=== PATIENT | female | born 1950 | race Caucasian/White ===

== ENCOUNTER 2019-06-08 13:30 | Outpatient (RCR) | payer MEDICARE, OTHER, SELFPAY | END 2019-06-28 00:01 | LOC: ONCMED 13:30 | PROVIDERS: Referring Provider Internal Medicine; Visit Provider Internal Medicine Hematology & Oncology | DX: C34.12 Malignant neoplasm of upper lobe, left bronchus or lung (principal); J44.9 Chronic obstructive pulmonary disease, unspecified; R09.02 Hypoxemia; F17.210 Nicotine dependence, cigarettes, uncomplicated | CPT/HCPCS: 99205; 99213 ==

== ENCOUNTER 2019-07-29 05:49 | Outpatient (RCR) | payer MEDICARE, OTHER, SELFPAY ==
--- NOTE | 2019-07-05 | CT_ITS ---
Radation Therapy Planning CT images; total exam DLP: 1519.64 mGy-cm MTDD
[2019-07-13 14:46] LABS: Basophils % 0.4 %; Eosinophils # 0.1 10^3/uL (0.0-0.8); Eosinophils % 0.5 %; Hematocrit 46.5 % (37.0-47.0); Hemoglobin 15.4 g/dL (11.5-15.3); Lymphocytes # 2.7 10^3/uL (0.8-4.8); Lymphocytes % 24.3 %; Mean Corpuscular HGB Conc 33.1 g/dL (30.0-36.0); Mean Corpuscular Hemoglobin 31.6 pg (28.0-34.0); Mean Corpuscular Volume 95.5 fL (81-99); Mean Platelet Volume 10.7 fL (7.4-10.4); Monocytes # 0.6 10^3/uL (0.2-0.9); Monocytes % 5.4 %; Neutrophils # 7.6 10^3/uL (1.8-7.7); Nucleated Red Blood Cells % 0 %; Platelet Count 247 10^3/cmm (130-400); Red Blood Count 4.87 10^6/uL (4.1-5.3); Red Cell Distribution Width 14.5 % (12.1-15.1)
[2019-07-13 15:09] LABS: Alanine Aminotransferase 11 U/L (0-33); Albumin Level 4.6 g/dL (3.5-5.2); Alkaline Phosphatase 72 IU/L (35-105); Anion Gap 15.9 (5-19); Aspartate Amino Transferase 13 U/L (0-32); Blood Urea Nitrogen 20 mg/dL (8-23); Calcium 10.2 mg/Dl (8.8-10.2); Carbon Dioxide 26 mmol/L (22-29); Chloride 102 mmol/L (98-107); Globulin 2.7 g/dL (1.3-4.6); Glomerular Filtration Rate 83.5 mL/min (90-130); Glucose 142 mg/dL (74-106); Potassium 3.9 mmol/L (3.5-5.1); Sodium 140 mmol/L (136-145); Total Bilirubin 0.2 mg/dL (0.15-1.2); Total Protein 7.3 g/dL (6.6-8.7)
--- NOTE | 2019-07-14 13:18 | ONC FU_ITS ---
Dr. Zhou follow up note Patient: Sheela Harris < Unit #: [id number]: 1950 Dicatated By: Barbara Zhou M.D.Date of Visit:Jul 13, 2019 Onc Med Follow-up/Prog Note History of Present Illness: Mrs. sheela Harris, is a 68-year-old female with history of COPD chronic smoking and exercise hypoxemia recently underwent CT scan of chest which showed 2 separate pulmonary nodules e.g. 1 and upper lobe and one lower lobe subsequently she underwent CT PET scan on 05/10/2019 which confirmed multiple left lung nodules with SUV of 9.2 the largest of disease in the posterior aspect of left upper lobe measuring up to 0.8 x 1.3 cm. As per discussion with Dr. Orourke radiation oncologist, there are 3 small separate nodules in the left upper lobe and one in the left lower lobe and because of location SB RT can be performed. CT PET scan showed no mediastinal or hilar lymphadenopathy or any distance metastatic disease patient underwent CT-guided biopsy of left upper lobe nodule on 06/01/2019 which showed moderately differentiated squamous cell carcinoma immunohistochemistry was positive for P 40 and negative for TTF-1. Because of underlying lung condition, patient was not a candidate for surgery so she was referred to radiation/medical oncology for evaluation and management.Cancer type ID was done on 06/01/2019 showed squamous cell carcinoma lung as a primary within 77% probability Patient denies any history of hemoptysis or hematemesis. Patient denies any history of bony pains patient denies any history of headaches blurred vision double vision. But she has history of brain tumor for which she underwent yearly MRI scan for 5-6 years without any progression as per patient at that time she was told it could be a benign lesion or she may have born with it. She also has a skin lesion in left subaxillary area for which she was supposed to see world history teacher but she canceled her appointment once she found out about lung cancer. Patient denies any weight loss. Patient denies any jaundice patient denies any history of sore throat or dysphagia. Patient denies any history of vaginal bleeding. Patient is a chronic smoker and smoke about pack a day Came for follow-up, denies any specific complaints, no fever or chills, no nausea vomiting, no diarrhea constipation patient has seen radiation oncology now SB RT to left lung lesions is planned and scheduled. Medications: Aspirin 81 mg (of 81 mg) Tablet Oral daily, Diclofenac Sodium 75 mg (of 75 mg) Tablet, enteric coated Oral daily, hydroCHLOROthiazide 12.5 mg (of 12.5 mg) Tablet Oral daily, Simvastatin 20 mg (of 20 mg) Tablet Oral daily Allergies: No Known Allergies. Review of Systems: Review of Systems is not available for this patient. Vital Signs: Performed on Jul 13, 2019 15:29 Height - 61.00 in Weight - 156.4 lbs (LOW) BSA - 1.70 sq.m BMI - 29.55 Temperature - 98.6 F Pulse - 83 /min Respiration - 24 /min BP - 136/82 mm(hg) O2 Sat - 95 % (LOW) Pain - 0 Performance Status: 1 - No physically strenuous activity, but ambulatory and able to carry out light or sedentary work (e.g. office work, light house work). (ECOG) Physical Examination: ENMT - No oral exudates, ulcers, masses, thrush or mucositis. Oropharynx clear. Tongue normal, Respiratory - Poor air entry, mild wheezing bilaterally, Cardiovascular - Regular rate and rhythm of heart, Abdomen - Non-tender, non-distended, Good bowel sounds. No guarding or rebound tenderness. No pulsatile masses, Extremities - no edema. Lab/Imaging: Test performed on Jul 13, 2019 14:34 Glucose 142 mg/dL BUN 20 mg/dL Creatinine 0.7 mg/dL Cr Clearance (Est) 87.3400 mL/min (Preliminary) Sodium 140 mmol/L Potassium 3.9 mmol/L Chloride 102 mmol/L CO2 26 mmol/L Calcium 10.2 mg/dL Protein, Total 7.3 g/dL Albumin 4.6 g/dL Globulin 2.7 g/dL Bilirubin, Total 0.2 mg/dL Alkaline Phosphatase 72 IU/L AST (SGOT) 13 IU/L ALT (SGPT) 11 IU/L WBC 11.0 10 3/uL RBC 4.87 10^12/L HGB 15.4 g/dL HCT 46.5 % MCV 95.5 fL MCH 31.6 pg MCHC 33.1 g/dL RDW 14.5 % Platelet Count 247 10 3/cmm MPV 10.7 fL Lymphocytes 2.7 10^9/L Neutrophils 0.0 10 3/uL Monocytes 0.6 10^9/L Eosinophils 0.1 10^9/L Basophils 0.0 10^9/L Neutrophil % 0.5 % Manual Lymphocytes 24.3 % Manual Monocytes 5.4 % Manual Eosinophils 0.5 % Manual Basophils 0.4 % NRBCs 0.0 /100 WBC Impression: Moderately differentiated squamous cell carcinoma per CT-guided biopsy of left upper lobe lung done on 06/01/2019 Immunohistochemistry showed positive for p40 and negative for TTF-1. CT PET scan done on 05/10/2019 showed multiple hypermetabolic nodules in left lung e.g. 3 closely related nodules in upper left lobe largest being 0.8 x 1.3 cm and one in the left lower lobe. Cancer type ID confirmed lung being primary at 77% probability Clinical stage T4 ( lesions in ipsilateral separate lobes) NX M0 stage IIIa COPD, exercise hypoxemia, chronic smoking Plan: Discussed with patient regarding her labs white blood count 11 hemoglobin of 15.4 crit 46.5 platelets 247,000 CMP within normal limits Clinically, patient is doing well, denies any new signs symptom suggestive of disease progression. Based on size and location now for multiple left lung nodules, SB RT was recommended by radiation oncology now scheduled to start next week. Due to unusual presentation e.g. no mediastinal lymphadenopathy but multiple lobes involvement in the left lung, cancer type ID was performed which confirmed lung being primary at 77% probability. Patient was not a candidate for surgery due to underlying lung condition due to chronic smoking and COPD/exertional hypoxemia and due to size and location of left lung lesions, radiation recommended SB RT. Role of systemic chemotherapy and stage IIIa disease was discussed again. After completion of SB RT we will consider systemic chemotherapy with carboplatin/gemcitabine every 3 weeks ???4 cycles as patient is a hard of hearing and thus would not consider cisplatin due to related ototoxicity. Patient will return to clinic 1 week after completion of SB RT the left lung in the meantime we'll obtain approval from her insurance all the side effect possible benefit as a with chemotherapy e.g. bone marrow suppression, especially thrombocytopenia, nausea vomiting possible hair loss were mentioned further teaching will be done by chemotherapy nurse. Signed By: Barbara Zhou M.D. <<Signature on File>>
--- NOTE | 2019-07-18 14:56 | ONCRAD TMN_ITS ---
Radiation Oncology Weekly Treatment Management Patient: Moraima Harris MR#: [id number] : 1950> Age: 68> Sex: Female Dictated by: Dr. Fitz Orourke Date of Service: 07/18/2019 Referring Physician(s): Otto Sanchez M.D. Primary Diagnosis: C34.12 - Malignant neoplasm of upper lobe, left bronchus or lung, Diagnosed 06/08/2019 (Active) C34.92 - Malignant neoplasm of unspecified part of left bronchus or lung, Diagnosed 06/01/2019 (Active) Radiotherapy to date: Course: LT Lung [id number], Treatment Site: LT LungU SBRT, Ref. ID: , VAIBHAV SBRT, Energy: 6X, Dose/Fx (cGy): 1,200, #Fx: 2 / 4, Dose Correction (cGy): 0, Total Dose cGy): 2,400, Start Date: 07/13/2019, Elapsed Days: 5 Current Complaints/Interval History: Constitutional Complains of night sweats which occur occasionally. Denies lack of appetite, fatigue and fever. ENMT Denies odynophagia or dysphagia. Cardiovascular Denies chest pain but has heaviness to the left side above the breast. Respiratory Notes a mild cough. Denies dyspnea, wheezing and chest wall pain. Current Medications: Aspirin, diclofenac Sodium, hydroCHLOROthiazide, simvastatin. Allergies: No Known Allergies Vital Signs: Performed on 07/18/2019 12:08 PM BMI - 29.854 kg/m2 (high), Height - 61.00 in, Weight - 158.0 lbs, Temperature - 98.2 f, Pulse - 74, Respiration - 18, O2 Sat - 97 %, Pain - 0 and BP - 144/ 80 mm(hg)(high/). Physical Exam: Appears stable, no skin erythema or desquamation. Performance Status: 1 - No physically strenuous activity, but ambulatory and able to carry out light or sedentary work (e.g. office work, light house work). (ECOG) Lab: Test performed on 07/13/2019 2:34 PM WBC - 11.0 10 3/ul (high), HGB - 15.4 g/dl (high), HCT - 46.5 % (high) and MPV - 10.7 fl (high). Imaging: No new diagnostic imaging was performed since the last weekly treatment visit. All radiation therapy related imaging (including but not limited to CBCT generated images) was reviewed. Appropriate changes, if any, were made to assure accurate target localization. Impression/Plan: Tolerating treatment well. Continue treatment as planned. Recommended patient to see her primary physician for the feeling of heaviness on left chest to have a workup for cardiac problem / angina. She should go to ER if symptoms worsen. The patient expressed good understanding and agreed with the plan. I explained to the patient that there is an increased risk of rib fracture and chronic chest wall pain associated with the SBRT due to the peripheral tumors abutting chest wall/ribs. The patient expressed good understanding. CPT: 71797 Signed by: Dr. Fitz Orourke>07/18/2019 2:55:35 PM <<Signature on File>>
--- NOTE | 2019-07-27 15:30 | ONCRAD TMN_ITS ---
Radiation Oncology Weekly Treatment Management Patient: Moraima Harris MR#: [id number] : 1950> Age: 68> Sex: Female Dictated by: Dr. Fitz Orourke Date of Service: 07/27/2019 Referring Physician(s) : Otto Sanchez M.D. Primary Diagnosis: C34.12 - Malignant neoplasm of upper lobe, left bronchus or lung, Diagnosed 06/08/2019 (Active) C34.92 - Malignant neoplasm of unspecified part of left bronchus or lung, Diagnosed 06/01/2019 (Active) Radiotherapy to date: Course: LT Lung [id number] Treatment Site: LungU SBRT, Ref. ID: VAIBHAV SBRT, Energy: 6X, Dose/Fx (cGy): 1,200, #Fx: 4 / 4, Dose Correction (cGy): 0, Total Dose (cGy): 4,800, Start Date: 07/13/2019, End Date: 07/22/2019, Elapsed Days: 9 Treatment Site: LT LungL SBRT, Ref. ID: LLL SBRT, Energy: 6X, Dose/Fx (cGy): 1,200, #Fx: 2 / 4, Dose Correction (cGy): 0, Total Dose (cGy): 2,400, Start Date: 07/25/2019, End Date: 07/27/2019, Elapsed Days: 2 Current Complaints/Interval History: Constitutional Complains of occasional night sweats. Denies lack of appetite, fatigue and fever. ENMT Denies odynophagia or dysphagia. Chest wall Denies chest wall pain. Respiratory Complains of cough which is non-productive. Complains of dyspnea associated with normal activity. Denies hemoptysis and wheezing. Current Medications: Aspirin, diclofenac Sodium, hydroCHLOROthiazide, simvastatin. Allergies: No Known Allergies Vital Signs: Performed on 07/27/2019 11:43 AM BMI - 29.174 kg/m2 (high), Height - 61.00 in, Weight - 154.4 lbs, Temperature - 98.7 f, Pulse - 78, Respiration - 20, O2 Sat - 97 %, Pain - 0 and BP - 146/ 80 mm(hg)(high/). Physical Exam: Appears stable, no skin erythema or desquamation. Lungs clear with no wheezing or rales. Performance Status: 1 - No physically strenuous activity, but ambulatory and able to carry out light or sedentary work (e.g. office work, light house work). (ECOG) Lab: Test performed on 07/13/2019 2:34 PM WBC - 11.0 10 3/ul (high), HGB - 15.4 g/dl (high), HCT - 46.5 % (high) and MPV - 10.7 fl (high). Imaging: No new diagnostic imaging was performed since the last weekly treatment visit. All radiation therapy related imaging (including but not limited to CBCT generated images) was reviewed. Appropriate changes, if any, were made to assure accurate target localization. Impression/Plan: Tolerating treatment well. Continue treatment as planned. CPT: 87206 Signed by: Dr. Fitz Orourke>07/27/2019 3:28:44 PM <<Signature on File>>
== END 2019-07-29 23:59 | disposition home or self-care (01) ==
LOC: ONCMED 05:49
PROVIDERS: Internal Medicine Hematology & Oncology; Visit Provider Radiology Radiation Oncology
DX: Z51.0 Encounter for antineoplastic radiation therapy (principal); C34.82 Malignant neoplasm of overlapping sites of left bronchus and lung; J44.9 Chronic obstructive pulmonary disease, unspecified; F17.210 Nicotine dependence, cigarettes, uncomplicated; Z79.82 Long term (current) use of aspirin
CPT/HCPCS: 36415; 77014; 77263; 77280; 77290; 77295; 77300; 77334; 77336; 77370; 77373; 77470; 80053; 85025; G0463

== ENCOUNTER 2019-08-08 14:11 | Day surgery (SDC) | payer MEDICARE, OTHER, SELFPAY ==
[2019-08-05 15:29] VITALS: BMI 29.6
--- NOTE | 2019-08-08 | SCC_ITS ---
Procedure done placement of right IJ Port-A-Cath all intraoperative fluoroscopic interpretation and sonographic assessment and evaluation was done by me through the whole entire procedure. 12.8 seconds of fluoroscopic guidance, for a cumulative dose of 1.66 mGy, was provided to Dr. Gonsalez by the radiology department. C-arm images of the chest were saved for the patient's permanent record. ALICE
[2019-08-08 14:33] VITALS: BP 137/74; PULSE 86; RESP 18; TEMP 36.5; O2SAT 94
[2019-08-08 14:39] VITALS: BMI 29.5
[2019-08-08] MEDS: sodium chloride 0.9% 1,000 ML 30 ML IV (14:42)
--- NOTE | 2019-08-08 15:41 | PM.HPUD ---
H&P update H&P Update: DATE OF SURGERY/PROCEDURE: 08/08/19 DATE H&P PERFORMED: 07/27/19 H&P UPDATE INFORMATION: H&P completed within last 30 days and No changes to prior documentation PREOP DIAGNOSIS: Lung cancer PRIMARY INDICATION FOR PROCEDURE: Patient requires a long-term IV access PLANNED PROCEDURE: Operation Date: 08/08/19 15:25 Proposed Procedures p Portacath Placement 18112/C34.90(Not Applicable) - Deandre Gonsalez MD Full H&P Medications/Allergies: Current Medications: Current Medications Generic Name Dose Route Start Last Admin Trade Name Freq PRN Reason Stop Dose Admin Sodium Chloride 1,000 mls @ 30 ml s/hr 08/08/19 14:30 08/08/19 14:42 Sodium Chloride 0.9% IV 08/09/19 14:29 30 mls/hr .Q24H NYLA Administration Perinent History: Medical/Surgical History: Medical History (Updated 07/28/19 @ 09:27 by Deandre Gonsalez MD) Hyperlipidemia (Acute) Hypertension (Acute) Lung cancer (Acute) Family History: Family History (Updated 07/27/19 @ 13:13 by Nicole Dominguez RN) Denies family history of Anesthesia complication Bleeding disorder Social History: Social History Smoking and tobacco status: current every day smoker cigarettes Packs smoked per day: 1.5 Second hand smoke exposure: Yes Alcohol intake: never Desire information about substance/drug rehabilitation?: No Adopted: No Caregiver/support person: Yes Lives independently: Yes Household members: spouse Housing: House Marital status: Highest education level completed: High School Graduate service: No Current occupational status: retired Current occupational exposures/hazards: No Pets and animals: No History of recent travel: No Sexually active: No Current gender identity: Female Radha/Nondenominational: Hindu Special radha needs: No Financial difficulty paying for basics: Decline to Answer
--- NOTE | 2019-08-08 15:58 | P.ANESASSM_ITS ---
Pre-Anesthetic Assessment Pre-Anesthetic Assessment: Height/Weight: Height 1.55 m Weight 70.76 kg Temp Pulse Resp BP Pulse Ox 97.7 F 86 18 137/74 94 08/08/19 14:33 08/08/19 14:33 08/08/19 14:33 08/08/19 14:33 08/08/19 14:33 Preop Diagnosis: Lung cancer Proposed Procedure: Operation Date: 08/08/19 15:25 Proposed Procedures p Portacath Placement 51956/C34.90(Not Applicable) - Deandre Gonsalez MD Was Beta Roverto taken within 24 hours: N/A Last intake: Intake Last Liquid Date 08/07/19 Last Liquid Time 17:00 Last Solid Date 08/07/19 Last Solid Time 17:00 Last Intake: 05:00 Social: Social History: Tobacco Packs per day: 1 Pack years: 50 Exam: Pre-Anes Outpt Exam: alert and oriented x 3 Pulmonary: Pulmonary: COPD and None reported Comments: 1 L @ night CV/HEM: CV/HEM: CHF and HTN : : None reported Hepatic: Hepatic: None reported GI: GI: None reported Metabolic: Metabolic: Morbid obesity Musc/skel: Musc/skel: None reported Neuropsych: Neuropsych: None reported Anesthetic Plan: ASA status: 4 Anesthesia: Anesthesia Evaluation and MAC Meds/Allergies Current Medications: Current Medications Generic Name Dose Route Start Last Admin Trade Name Freq PRN Reason Stop Dose Admin Sodium Chloride 1,000 mls @ 30 ml s/hr 08/08/19 14:30 08/08/19 14:42 Sodium Chloride 0.9% IV 08/09/19 14:29 30 mls/hr .Q24H NYLA Administration PFSH Anesthesia PFSH: Social History Smoking and tobacco status: current every day smoker cigarettes Packs smoked per day: 1.5 Second hand smoke exposure: Yes Alcohol intake: never Desire information about substance/drug rehabilitation?: No Adopted: No Caregiver/support person: Yes Lives independently: Yes Household members: spouse Housing: House Marital status: Highest education level completed: High School Graduate service: No Current occupational status: retired Current occupational exposures/hazards: No Pets and animals: No History of recent travel: No Sexually active: No Current gender identity: Female Radha/Anabaptist: Hoahaoism Special radha needs: No Financial difficulty paying for basics: Decline to Answer Data Anesthesia Cardiac Studies: No Data to Display
--- NOTE | 2019-08-08 16:09 | SC_ITS ---
WS: [id number] C-arm fluoroscopy view of the right chest in the OR, 08/08/2019 Clinical Data: SURGERY Comparison: None. Findings: A right internal jugular venous catheter has been inserted and the tip ends in the superior vena cav a. SC/C-arm FL for CVA 20004 Impression: Satisfactory insertion of right internal jugular venous catheter.
[2019-08-08] MEDS: heparin, porcine 1,000 unit/mL INJ 10 mL 10000 UNIT INJECTION (16:54)
[2019-08-08] MEDS: lidocaine 2% INJ 20 mL INJECTION (16:54)
--- NOTE | 2019-08-08 17:30 | XRR_ITS ---
PROCEDURE INFORMATION: Exam: XR Chest, 1 View Exam date and time: 08/08/2019 5:47 PM Age: 68 years old Clinical indication: Other vascular access device placement or adjustment; Port; Additional info: Status post right ij port-a-cath placement TECHNIQUE: Imaging protocol: XR of the chest Views: 1 view. COMPARISON: No relevant prior studies available. FINDINGS: Tubes, catheters and devices: There is a right IJ port with tip in the right atrium. Lungs: Lungs are hyperinflated. There is interstitial prominence compatible with fibrosis, bronchitis, viral pneumonitis or mild interstitial edema. No lobar consolidation. Pleural space: Unremarkable. No pleural effusion. No pneumothorax. Heart/Mediastinum: There is borderline cardiomegaly. Bones/joints: No acute abnormality. XR/XR chest 1V portable [id number] IMPRESSION: There is interstitial prominence compatible with fibrosis, bronchitis, viral pneumonitis and/or mild interstitial edema.
--- NOTE | 2019-08-08 17:30 | P.OP_ITS ---
Operative Report Date of procedure: August 08, 2019 Pre-op Diagnosis: Lung cancer Post-op diagnosis: same Implants: Right IJ Port-A-Cath Procedure done placement of right IJ Port-A-Cath all intraoperative fluoroscopic interpretation and sonographic assessment and evaluation was done by me through the whole entire procedure. Surgeon: Deandre Gonsalez Towboat Captain: Dimitri Bateman Anesthesia: MAC (JERI Caballero) Estimated blood loss (mL): 15 Condition: stable Disposition: same day Brief History: This is a pleasant 68 years old female patient with history of lung cancer, referred to my practice to have a Port-A-Cath placement for long- term IV access. Plan of care; After thorough history physical examination and reviewing the chart, I counseled the patient for Port-A-Cath placement, indications, risks including pneumothorax and injury of major vascular structures, benefits, and alternatives were all discussed with the patient, patient understands and is interested to proceed. Informed consent per chart Assurance and education All questions have been answered Procedure: Patient was identified in the holding area and taken to the operative room and placed in supine position IV propofol was given by the anesthesia provider ,both arms were tucked,Time-out was done verifying the patient's name/date of /planned procedure and destination after the procedure, all were in agreement. SCDs confirmed to be functioning, preoperative antibiotics administered per protocol, and beta rogelio protocol was confirmed, appropriate positioning of the patient was done by me. Medications were reviewed to assess for anticoagulant usage. Risks and benefits and prevention of central line associated blood stream infection (CLABSI) were discussed with the patient/CPOA, and a consent was obtained. Monitors were in place and monitored throughout the procedure. All necessary supplies were available prior to start. Hand hygiene was completed prior to starting. M aximum barrier technique was utilized including a sterile gown, sterile gloves with a hat and mask. Site was was prepped with [chlorhexidine] and a full body drape was placed. 5 mL of 2% lidocaine was injected into the skin with a 25 gauge needle. Prep& drape was done under the usual sterile technique, lidocaine 2% was injected at the site of the stick, started by right subclavian vein stick yet I was not able to retrieve venous blood, after couple of attempts I decided to deviate my attention to the right IJ vein, venous blood was obtained under ultrasound guidance and there was no evidence of intraluminal thrombosis, interpretation was done by me through the whole entire procedure, a guidewire was then threaded and under the guidance of fluoroscopy position was confirmed to be in the IVC and my interpretation, there was no PVC changes, at that point the guidewire was secured to the drapes with a hemostat and the needle was taken out. Attention was then deviated towards creation of a pocket for the port were lidocaine 2% was injected using an 15 blade knife skin incision was created at the right upper Chest ,dissection using the Bovie to create a pocket for the Port-A-Cath to be accommodated, hemostasis was secured, after the port being appropriately flushed it was inserted into the pocket and a tunneler was used to accommodate the catheter of the port cath to be delivered through the incision first created at the site of the stick, yet I had to create a transit incision at the root of the neck at the right side to the patient difficult anatomy , and then I was able to retrieve the catheter at the index site of the stick. At that point under fluoroscopy an estimated length was measured for the catheter and was cut at the designed level, followed by that a dilator with the sheath introduced onto the guidewire the dilator and the wire were retrieved and the catheter of the port was introduced via the sheath where it was peeled off and the catheter maintained to be in the SVC that was confirmed with fluoroscopy, and the fluoroscopy interpretation was done by me throughout the entire procedure. Multiple flushes of the port was done by diluted heparin and I was able to retrieve without difficulty venous blood as well as appropriate flushing was achieved. The port was secured to the fascia with using Prolene sutures, 4-0 Vicryl deep subdermal interrupted sutures, skin was then closed by 4-0 Monocryl as subcuticular closure. The stick site was closed by 4-0 Monocryl and Dermabond was used followed by dressing. Patient tolerated the procedure well was taken to the recovery area Count was correct at the end of the procedure I was present for the whole entire procedure
[2019-08-08 17:41] VITALS: BP 145/75; PULSE 69; RESP 16; TEMP 36.1; O2SAT 97
[2019-08-08 17:57] VITALS: BP 162/71; PULSE 67; RESP 18; O2SAT 100
== END 2019-08-08 18:04 | disposition home or self-care (01) ==
PROVIDERS: Visit Provider Surgery
PROC: (CPT 36561; principal; 2019-08-08 15:25)
DX: C34.90 Malignant neoplasm of unspecified part of unspecified bronchus or lung (principal); J44.9 Chronic obstructive pulmonary disease, unspecified; I11.0 Hypertensive heart disease with heart failure; I50.9 Heart failure, unspecified; E66.01 Morbid (severe) obesity due to excess calories; Z68.29 Body mass index [BMI] 29.0-29.9, adult; F17.210 Nicotine dependence, cigarettes, uncomplicated; E78.5 Hyperlipidemia, unspecified; I10 Essential (primary) hypertension; Z79.82 Long term (current) use of aspirin
CPT/HCPCS: 36561; 12345; 71045; 77001; C1788; J0690; J1644; J2001; J7030

== ENCOUNTER 2019-08-23 05:35 | Outpatient (RCR) | payer MEDICARE, OTHER, SELFPAY ==
[2019-08-05 10:04] LABS: Basophils % 0.6 %; Eosinophils # 0.1 10^3/uL (0.0-0.8); Eosinophils % 1.1 %; Hematocrit 46.6 % (37.0-47.0); Hemoglobin 15.1 g/dL (11.5-15.3); Lymphocytes # 1.1 10^3/uL (0.8-4.8); Lymphocytes % 17.1 %; Mean Corpuscular HGB Conc 32.4 g/dL (30.0-36.0); Mean Corpuscular Hemoglobin 30.9 pg (28.0-34.0); Mean Corpuscular Volume 95.3 fL (81-99); Mean Platelet Volume 10.5 fL (7.4-10.4); Monocytes # 0.5 10^3/uL (0.2-0.9); Monocytes % 7.3 %; Neutrophils # 4.8 10^3/uL (1.8-7.7); Neutrophils % 73.6 %; Nucleated Red Blood Cells % 0 %; Platelet Count 209 10^3/cmm (130-400); Red Blood Count 4.89 10^6/uL (4.1-5.3); Red Cell Distribution Width 14.3 % (12.1-15.1); White Blood Count 6.5 10^3/uL (4.0-10.0)
[2019-08-05 10:27] LABS: Alanine Aminotransferase 18 U/L (0-33); Albumin Level 4.1 g/dL (3.5-5.2); Alkaline Phosphatase 61 IU/L (35-105); Anion Gap 16.1 (5-19); Aspartate Amino Transferase 13 U/L (0-32); Blood Urea Nitrogen 13 mg/dL (8-23); Carbon Dioxide 28 mmol/L (22-29); Chloride 99 mmol/L (98-107); Globulin 2.7 g/dL (1.3-4.6); Glomerular Filtration Rate 99.7 mL/min (90-130); Glucose 88 mg/dL (65-115); Potassium 4.1 mmol/L (3.5-5.1); Sodium 139 mmol/L (136-145); Total Bilirubin 0.2 mg/dL (0.15-1.2); Total Protein 6.8 g/dL (6.6-8.7)
--- NOTE | 2019-08-05 11:48 | ONC FU_ITS ---
Dr. Zhou follow up note Patient: Sheela Harris < Unit #: [id number]: 1950 Dicatated By: Barbara Zhou M.D.Date of Visit:Aug 05, 2019 Onc Med Follow-up/Prog Note History of Present Illness: Mrs. sheela Harris, is a 68-year-old female with history of COPD chronic smoking and exercise hypoxemia recently underwent CT scan of chest which showed 2 separate pulmonary nodules e.g. 1 and upper lobe and one lower lobe subsequently she underwent CT PET scan on 05/10/2019 which confirmed multiple left lung nodules with SUV of 9.2 the largest of disease in the posterior aspect of left upper lobe measuring up to 0.8 x 1.3 cm. As per discussion with Dr. Orourke radiation oncologist, there are 3 small separate nodules in the left upper lobe and one in the left lower lobe and because of location SB RT can be performed. CT PET scan showed no mediastinal or hilar lymphadenopathy or any distance metastatic disease patient underwent CT-guided biopsy of left upper lobe nodule on 06/01/2019 which showed moderately differentiated squamous cell carcinoma immunohistochemistry was positive for P 40 and negative for TTF-1. Because of underlying lung condition, patient was not a candidate for surgery so she was referred to radiation/medical oncology for evaluation and management.Cancer type ID was done on 06/01/2019 showed squamous cell carcinoma lung as a primary within 77% probability Patient denies any history of hemoptysis or hematemesis. Patient denies any history of bony pains patient denies any history of headaches blurred vision double vision. But she has history of brain tumor for which she underwent yearly MRI scan for 5-6 years without any progression as per patient at that time she was told it could be a benign lesion or she may have born with it. She also has a skin lesion in left subaxillary area for which she was supposed to see observer electrical prospecting but she canceled her appointment once she found out about lung cancer. Patient denies any weight loss. Patient denies any jaundice patient denies any history of sore throat or dysphagia. Patient denies any history of vaginal bleeding. Patient is a chronic smoker and smoke about pack a day Status post SB RT to left upper lobe lung lesion from 07/13/2019 through 07/22/2019 Status post SB RT to left lower lobe of lung nodule from 07/25/2019 and completed on 08/02/2019.Came for follow-up, denies any specific complaints, no nausea vomiting no fever no chills, no shortness of breath no hemoptysis or hematemesis, tolerated SB RT to left lung nodules well.Port-A-Cath placement is planned on Thursday. Medications: Aspirin 81 mg (of 81 mg) Tablet Oral daily, Diclofenac Sodium 75 mg (of 75 mg) Tablet, enteric coated Oral daily, hydroCHLOROthiazide 12.5 mg (of 12.5 mg) Tablet Oral daily, Simvastatin 20 mg (of 20 mg) Tablet Oral daily Allergies: No Known Allergies. Review of Systems: Review of Systems is not available for this patient. Vital Signs: Performed on Aug 05, 2019 11:08 Height - 61.00 in Weight - 157.0 lbs (HIGH) BSA - 1.70 sq.m BMI - 29.67 Temperature - 99.0 F (HIGH) Pulse - 84 /min Respiration - 18 /min BP - 142/79 mm(hg) (HIGH) O2 Sat - 92 % (LOW) Pain - 0 Performance Status: 0 - Fully active, able to carry on all predisease activities without restrictions. (ECOG) Physical Examination: ENMT - No oral exudates, ulcers, masses, thrush or mucositis. Oropharynx clear. Tongue normal, Respiratory - Lungs are clear to auscultation without rhonchi or wheezing, Cardiovascular - Regular rate and rhythm of heart, Abdomen - Non-tender, non-distended, . Good bowel sounds. No guarding or rebound tenderness. No pulsatile masses, Extremities - no edema. Lab/Imaging: Test performed on Jul 13, 2019 14:34 Glucose 142 mg/dL BUN 20 mg/dL Creatinine 0.7 mg/dL Cr Clearance (Est) 87.3400 mL/min (Preliminary) Sodium 140 mmol/L Potassium 3.9 mmol/L Chloride 102 mmol/L CO2 26 mmol/L Calcium 10.2 mg/dL Protein, Total 7.3 g/dL Albumin 4.6 g/dL Globulin 2.7 g/dL Bilirubin, Total 0.2 mg/dL Alkaline Phosphatase 72 IU/L AST (SGOT) 13 IU/L ALT (SGPT) 11 IU/L WBC 11.0 10 3/uL RBC 4.87 10^12/L HGB 15.4 g/dL HCT 46.5 % MCV 95.5 fL MCH 31.6 pg MCHC 33.1 g/dL RDW 14.5 % Platelet Count 247 10 3/cmm MPV 10.7 fL Lymphocytes 2.7 10^9/L Neutrophils 0.0 10 3/uL Monocytes 0.6 10^9/L Eosinophils 0.1 10^9/L Basophils 0.0 10^9/L Neutrophil % 0.5 % Manual Lymphocytes 24.3 % Manual Monocytes 5.4 % Manual Eosinophils 0.5 % Manual Basophils 0.4 % NRBCs 0.0 /100 WBC Impression: Moderately differentiated squamous cell carcinoma per CT-guided biopsy of left upper lobe lung done on 06/01/2019 Immunohistochemistry showed positive for p40 and negative for TTF-1. CT PET scan done on 05/10/2019 showed multiple hypermetabolic nodules in left lung e.g. 3 closely related nodules in upper left lobe largest being 0.8 x 1.3 cm and one in the left lower lobe. Cancer type ID confirmed lung being primary at 77% probability Clinical stage T4 ( lesions in ipsilateral separate lobes) NX M0 stage IIIa COPD, exercise hypoxemia, chronic smoking Plan: Discussed with patient regarding her labs white blood count 6.5 hemoglobin 15.1 crit 46.6 platelets 209,000 CMP within normal limits Clinically, patient is doing well, tolerated SB RT to left upper lobe lung nodules as well as left lower lobe lung nodule well, now for the treatment is under consideration. Earlier patient required cancer type ID to confirm the primary as with clinical presentation metastatic disease was one of the possibility but cancer type ID confirmed pulmonary being primary with 77% probability, we will also consider PDL 1 status and molecular profiling of the tumor Also discuss about role of adjuvant chemotherapy as patient was not a candidate for surgery but underwent SB RT, as patient has history of hearing loss, as per N CCN guidelines cisplatin based chemotherapyregimen is used but due to patient is concern regarding his loss and with underlying hearing loss,we will recommend systemic chemotherapy with carboplatin AUC 5 on day 1 and gemcitabine thousand milligrams per meter square day 1 and day 8 and repeat every 21 days ???4 cycles unless PDL 1 status or molecular profiling shows otherwise. Patient return to clinic on 08/15/2019 further discussion regarding PDL 1 status and molecular profiling and if unremarkable, for chemotherapy treatment. Signed By: Barbara Zhou M.D. <<Signature on File>>
[2019-08-15 16:11] LABS: Basophils # 0.1 10^3/uL (0.0-0.1); Basophils % 0.8 %; Eosinophils # 0.1 10^3/uL (0.0-0.8); Eosinophils % 1.6 %; Hematocrit 46.1 % (37.0-47.0); Lymphocytes % 16.4 %; Mean Corpuscular HGB Conc 32.5 g/dL (30.0-36.0); Mean Corpuscular Hemoglobin 32.5 pg (28.0-34.0); Mean Corpuscular Volume 99.8 fL (81-99); Mean Platelet Volume 11.5 fL (7.4-10.4); Monocytes # 0.5 10^3/uL (0.2-0.9); Monocytes % 7.4 %; Neutrophils # 4.6 10^3/uL (1.8-7.7); Neutrophils % 73.2 %; Nucleated Red Blood Cells % 0 %; Platelet Count 225 10^3/cmm (130-400); Red Blood Count 4.62 10^6/uL (4.1-5.3); Red Cell Distribution Width 14.5 % (12.1-15.1); White Blood Count 6.2 10^3/uL (4.0-10.0)
[2019-08-15 18:57] LABS: Alanine Aminotransferase 10 U/L (0-33); Albumin Level 4.1 g/dL (3.5-5.2); Alkaline Phosphatase 55 IU/L (35-105); Anion Gap 20.5 (5-19); Aspartate Amino Transferase 14 U/L (0-32); Blood Urea Nitrogen 10 mg/dL (8-23); Calcium 9.9 mg/dL (8.5-10.5); Carbon Dioxide 24 mmol/L (22-29); Chloride 101 mmol/L (98-107); Globulin 3.3 g/dL (1.3-4.6); Glomerular Filtration Rate 83.5 mL/min (90-130); Glucose 156 mg/dL (65-115); Potassium 4.5 mmol/L (3.5-5.1); Sodium 141 mmol/L (136-145); Total Bilirubin 0.3 mg/dL (0.15-1.2); Total Protein 7.4 g/dL (6.6-8.7)
[2019-08-16] MEDS: sodium chloride 0.9% 250 ML IV (09:51)
[2019-08-22 16:42] LABS: Basophils % 0.9 %; Eosinophils % 0.6 %; Hematocrit 42.1 % (37.0-47.0); Hemoglobin 13.7 g/dL (11.5-15.3); Lymphocytes # 1.2 10^3/uL (0.8-4.8); Lymphocytes % 35.8 %; Mean Corpuscular HGB Conc 32.5 g/dL (30.0-36.0); Mean Corpuscular Hemoglobin 31.1 pg (28.0-34.0); Mean Corpuscular Volume 95.5 fL (81-99); Mean Platelet Volume 11.9 fL (7.4-10.4); Monocytes # 0.1 10^3/uL (0.2-0.9); Monocytes % 1.9 %; Neutrophils % 60.5 %; Nucleated Red Blood Cells % 0 %; Platelet Count 124 10^3/cmm (130-400); Red Blood Count 4.41 10^6/uL (4.1-5.3); Red Cell Distribution Width 13.5 % (12.1-15.1); White Blood Count 3.2 10^3/uL (4.0-10.0)
[2019-08-22 17:29] LABS: Alanine Aminotransferase 26 U/L (0-33); Albumin Level 4.3 g/dL (3.5-5.2); Alkaline Phosphatase 65 IU/L (35-105); Anion Gap 19.9 (5-19); Aspartate Amino Transferase 21 U/L (0-32); Blood Urea Nitrogen 16 mg/dL (8-23); Calcium 10.3 mg/dL (8.5-10.5); Carbon Dioxide 25 mmol/L (22-29); Chloride 99 mmol/L (98-107); Globulin 2.9 g/dL (1.3-4.6); Glomerular Filtration Rate 99.7 mL/min (90-130); Glucose 104 mg/dL (65-115); Potassium 3.9 mmol/L (3.5-5.1); Sodium 140 mmol/L (136-145); Total Bilirubin 0.3 mg/dL (0.15-1.2); Total Protein 7.2 g/dL (6.6-8.7)
[2019-08-23] MEDS: sodium chloride 0.9% 250 ML 300 ML IV (12:08)
--- NOTE | 2019-08-26 10:21 | ONC FU_ITS ---
[facility] Patient Note Patient: Moraima Harris Unit #: [id number]: [id number] Dictated By: Ely HebertDate of Visit: Aug 23, 2019 Onc MED Follow-Up/Prog Note Chief Complaint: Squamous cell carcinoma left lung History of Present Illness: Mrs. Harris is a 68-year-old female with history of COPD, chronic smoking and exercise hypoxemia. She recently underwent CT scan of chest which showed 2 separate pulmonary nodules e.g. 1 in the left upper lobe and one in the left lower lobe. Subsequently she underwent CT PET scan on 05/10/2019 which confirmed multiple left lung nodules with SUV of 9.2 the largest of disease in the posterior aspect of left upper lobe measuring up to 0.8 x 1.3 cm. As per discussion with Dr. Orourke radiation oncologist, there are 3 small separate nodules in the left upper lobe and one in the left lower lobe and because of location, SBRT can be performed. CT PET scan showed no mediastinal or hilar lymphadenopathy or any distance metastatic disease. Mrs Harris underwent CT-guided biopsy of left upper lobe nodule on 06/01/2019. 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 Because of underlying lung condition, patient was not a candidate for surgery so she was referred to radiation/medical oncology for evaluation and management.Cancer type ID was done on 06/01/2019 showed squamous cell carcinoma lung as a primary within 77% probability. Mrs Harris denies any history of hemoptysis or hematemesis. She denies any history of bony pains; headaches; blurred vision or double vision. She has history of brain tumor for which she underwent yearly MRI scan for 5-6 years without any progression as per patient at that time she was told it could be a benign lesion or she may have born with it. She also has a skin lesion in left subaxillary area for which she was supposed to see hide dyer but she canceled her appointment once she found out about lung cancer. Mrs Harris denies any weight loss. She denies any jaundice or any history of sore throat or dysphagia. She denies any history of vaginal bleeding. Mrs Harris is a chronic smoker and smokes about pack a day-currently. Status post SB RT to left upper lobe lung lesion from 07/13/2019 through 07/22/2019 Status post SB RT to left lower lobe of lung nodule from 07/25/2019 and completed on 08/02/2019.Came for follow-up, denies any specific complaints, no nausea vomiting no fever no chills, no shortness of breath no hemoptysis or hematemesis, tolerated SB RT to left lung nodules well. After completion of the SBRT, Mrs Harris was offered further treatment with chemotherapy consisting of Carboplatin/gemcitabine. The carboplatin is day 1 and gemcitabine is day 1 and 8. She began her first cycle on August 16, 2019. She tolerated it well thus far. Mrs. Adams is here today for follow-up. She is due for day 8 gemcitabine. She states overall she feels she is doing well. She has had no nausea or vomiting. She denies any headaches. She is had no vision changes. She denies any neuropathy symptoms. She states that she did have some right arm pain a couple days after the chemo it was pretty severe and eventually resolved on its own. She states 2 days ago she had an episode of where her right neck was having a burning pain where her Port-A-Cath loops in my neck . She states that it lasted for couple hours and was intermittent. She states she has had no recurrence of the pain. She denies any redness or swelling or warmth in the neck or shoulder area. She denies any recurrent pain presently. She has had no fever or chills. She states she has not had any mouth sores or sore throat or any trouble swallowing. Her appetite is good. She does continue to smoke currently. She denies any worsening of her shortness of breath orthopnea. She has had no chest pain or palpitations. She has had some slight constipation but states this kind of normal for her. I have asked her to watch after treatment to see if this could possibly be worsened due to her Aloxi. She states otherwise she is doing well. She states she feels good overall. She states she is sleeping good for her. Her ECOG is 1. Past Medical History: Carotid artery stenosis Chronic obstructive pulmonary disease Hypertension Obstructive sleep apnea Past [facility] Allergies: No Known Allergies. Medications: Aspirin 81 mg (of 81 mg) Tablet Oral daily Diclofenac Sodium 75 mg (of 75 mg) Tablet, enteric coated Oral daily hydroCHLOROthiazide 12.5 mg (of 12.5 mg) Tablet Oral daily Simvastatin 20 mg (of 20 mg) Tablet Oral daily Family History: Ms. Harris's mother at age 96: stroke, and myocardial infarction. Ms. Harris's father at age 86: prostate cancer, and renal failure. Ms. Harris has 1 sister who is : stomach cancer. Social History: Ms. Harris is and she is retired. She is a daily smoker who has smoked 1.0 pack/day for 51 years. She has no history of drinking. She has indicated exposure to the following products: cigarettes. Ms. Harris reports the following support systems: lives with spouse, significant other, family, or friends, lives in own house, supportive family/friends willing to assist with needs, and adequate transportation available for expected visits. Her diet consists of regular meals. She indicates her activity level as: light exercise. Review Of Symptoms: Constitutional Denies fevers, chills, night sweats, excessive fatigue or weight loss. Allergic/Immunologic No reactions. Eyes Denies significant visual changes. No diplopia. No amaurosis. ENMT Denies changes in hearing, sore throat, mouth sores, difficulty or changes in swallowing ability, and/or sinus drainage. Endocrine No diabetes, thyroid disease or hormone replacement. Denies hot flashes or night sweats. Hematologic/Lymphatic Denies easy bruising or bleeding. The patient denies any tender or palpable lymph nodes. Respiratory Denies dyspnea on exertion, chest pain, cough or hemoptysis. Denies orthopnea. Cardiovascular Denies anginal chest pain, palpitations or orthopnea. Gastrointestinal Denies nausea, vomiting, diarrhea, GI bleeding, or constipation. Denies change in bowel habits and/or stool color, no heartburn or early satiety. Genitourinary (F) No hematuria, hesitancy, incontinence, vaginal bleeding, discharge or other problems with urination. Musculoskeletal Denies joint pain, swelling or redness. No decreased range of motion. Integumentary Denies chronic rashes, inflammation, ulcerations or skin changes. Neurologic Denies headache, blurred vision, and no areas of focal weakness or numbness. Normal gait. No sensory problems. Psychiatric Denies insomnia, depression, hetal or mood swings. Vital Signs: Performed on Aug 23, 2019 11:05 Height - 61.00 in Weight - 155.8 lbs (LOW) BSA - 1.70 sq.m BMI - 29.44 Temperature - 98.3 F (LOW) Pulse - 89 /min Respiration - 20 /min BP - 143/76 mm(hg) (HIGH) O2 Sat - 97 % Pain - 0,1 - No physically strenuous activity, but ambulatory and able to carry out light or sedentary work (e.g. office work, light house work). (ECOG) Physical Examination: Constitutional Alert, oriented, no acute distress. Skin pink, warm and dry. Head Normocephalic; atraumatic. Eyes Conjunctivae and sclerae are clear and without icterus. Pupils are reactive and equal. ENMT No oral exudates, ulcers, masses, thrush or mucositis. Oropharynx clear. Tongue normal. Neck Supple without masses or thyromegaly. No jugular venous distension. Hematologic/Lymphatic No petechiae or purpura. No tender or palpable lymph nodes in the cervical or supraclavicular areas. Respiratory Lungs are clear to auscultation without rhonchi or wheezing. Cardiovascular Regular rate and rhythm of heart without murmurs,clicks, gallops or rubs. Abdomen Non-tender, non-distended, no masses or ascites. Good bowel sounds noted in all quads. No guarding or rebound tenderness. No pulsatile masses. Back/Spine Non-tender to palpation. Extremities No visible deformities, no cyanosis, clubbing or edema. Musculoskeletal No tenderness or swelling, normal range of motion without obvious weakness. Integumentary No rashes or lesions. Neurologic No sensory or motor deficits, normal cerebellar function, normal gait. Psychiatric Alert and oriented times three. Coherent speech. Verbalizes understanding of our discussions today. Laboratory:Test performed on Aug 22, 2019 12:50 Sodium 140 mmol/L Potassium 3.9 mmol/L Chloride 99 mmol/L CO2 25 mmol/L Anion Gap 19.9 BUN 16 mg/dL Creatinine 0.6 mg/dL Cr Clearance (Est) 102.2900 mL/min eGFR 99.7 mL/min Glucose 104 mg/dL Calcium 10.3 mg/dL Protein, Total 7.2 g/dL Albumin 4.3 g/dL Globulin 2.9 g/dL Bilirubin, Total 0.3 mg/dL ALT (SGPT) 26 U/L AST (SGOT) 21 U/L Alkaline Phosphatase 65 IU/L Test performed on Aug 22, 2019 09:00 WBC 3.2 10 3/uL RBC 4.41 10 6/uL HGB 13.7 g/dL HCT 42.1 % MCV 95.5 fL MCH 31.1 pg MCHC 32.5 g/dL RDW 13.5 % Platelet Count 124 10 3/cmm MPV 11.9 fL Neutrophils 2.0 10 3/uL Lymphocytes 1.2 10 3/uL Monocytes 0.1 10 3/uL Eosinophils 0.0 10 3/uL Basophils 0.0 10 3/uL Neutrophil % 60.5 % Lymphocyte % 35.8 % Monocyte % 1.9 % Eosinophil % 0.6 % Basophils % 0.9 % Test performed on Jul 13, 2019 14:34 Manual Lymphocytes 24.3 % Manual Monocytes 5.4 % Manual Eosinophils 0.5 % Manual Basophils 0.4 % NRBCs 0.0 /100 WBC Impression: Moderately differentiated squamous cell carcinoma per CT-guided biopsy of left upper lobe lung done on 06/01/2019 Immunohistochemistry showed positive for p40 and negative for TTF-1. CT PET scan done on 05/10/2019 showed multiple hypermetabolic nodules in left lung e.g. 3 closely related nodules in upper left lobe largest being 0.8 x 1.3 cm and one in the left lower lobe. Cancer type ID confirmed lung being primary at 77% probability Clinical stage T4 ( lesions in ipsilateral separate lobes) NX M0 stage IIIa COPD, exercise hypoxemia, chronic smoking Mrs Byse tolerated SB RT to left upper lobe lung nodules as well as left lower lobe lung nodule well. She has been advised to pursue further treatment per Dr Zhou. Earlier patient required cancer type ID to confirm the primary as with clinical presentation metastatic disease was one of the possibility but cancer type ID confirmed pulmonary being primary with 77% probability, we will also consider PDL 1 status and molecular profiling of the tumor Dr Zhou discussed the role of adjuvant chemotherapy as patient was not a candidate for surgery but underwent SB RT. Dr Zhou recommended systemic chemotherapy with carboplatin AUC 5 on day 1 and gemcitabine 1,000mg per meter square day 1 and day 8 and repeat every 21 days ???4 cycles. She began her first cycle of carboplatin gemcitabine on August 16, 2019. Plan: 1. Proceed with cycle 1 day 8 gemcitabine. 2. Continue current antiemetics for now but will watch for constipation which could be related to Aloxi as it is given on day 1. 3. Labs from August 22, 2019 were reviewed in detail and discussed with MrAbel and Mrs. Harris and a copy was given to her. WBC 3.2, hemoglobin 13.7, platelets 224,000 ANC is 2000. Potassium 3.9 glucose 104 LFTs are normal. 4. She will continue the current plan of care. She may use Compazine/Ativan as needed for antiemetics at home. Thus far she has not needed them. 5. We will plan to have her return in 2 weeks for follow-up at which time she will be due for cycle 2-day 1 carboplatin gemcitabine. She will need a CBC, CMP that day. 6. We will recheck a CBC CMP in 1 week. She can have that done at in-home labs or at a clinic closer home if she desires. I do want a follow-up on her labs as her ANC today is only 2000. She may need growth factors in the future. Her platelet count is also decreased for her. 7. Mrs. Harris was instructed to contact us in the interim should questions or problems arise. Signed By: Ely Hebert-, AOCNP Barbara Zhou MD <<Signature on File>>
== END 2019-08-27 23:59 | disposition home or self-care (01) ==
LOC: ONCMED 05:35
PROVIDERS: Internal Medicine Hematology & Oncology; Visit Provider Nurse Practitioner
DX: Z51.0 Encounter for antineoplastic radiation therapy (principal); Z51.11 Encounter for antineoplastic chemotherapy; C34.12 Malignant neoplasm of upper lobe, left bronchus or lung; I10 Essential (primary) hypertension; J44.9 Chronic obstructive pulmonary disease, unspecified; G47.33 Obstructive sleep apnea (adult) (pediatric); I65.29 Occlusion and stenosis of unspecified carotid artery; F17.210 Nicotine dependence, cigarettes, uncomplicated; Z79.82 Long term (current) use of aspirin
CPT/HCPCS: 36415; 77014; 77373; 80053; 85025; 96367; 96413; 96417; 99214; G0463; J1100; J1453; J2001; J2250; J2405; J2469; J2704; J3010; J7050; J9045; J9201

== ENCOUNTER 2019-09-26 06:29 | Outpatient (RCR) | payer MEDICARE, OTHER, SELFPAY ==
[2019-08-29 16:54] LABS: Basophils % 0.4 %; Eosinophils % 0.4 %; Hematocrit 38.8 % (37.0-47.0); Hemoglobin 12.9 g/dL (11.5-15.3); Lymphocytes # 1.1 10^3/uL (0.8-4.8); Lymphocytes % 44.6 %; Mean Corpuscular HGB Conc 33.2 g/dL (30.0-36.0); Mean Corpuscular Hemoglobin 32.5 pg (28.0-34.0); Mean Corpuscular Volume 97.7 fL (81-99); Mean Platelet Volume 12.2 fL (7.4-10.4); Monocytes % 1.7 %; Neutrophils # 1.3 10^3/uL (1.8-7.7); Neutrophils % 52.5 %; Nucleated Red Blood Cells % 0 %; Platelet Count 31 10^3/cmm (130-400); Red Blood Count 3.97 10^6/uL (4.1-5.3); Red Cell Distribution Width 13.2 % (12.1-15.1); White Blood Count 2.4 10^3/uL (4.0-10.0)
[2019-08-29 19:24] LABS: Alanine Aminotransferase 37 U/L (0-33); Albumin Level 4.3 g/dL (3.5-5.2); Alkaline Phosphatase 63 IU/L (35-105); Anion Gap 18.1 (5-19); Aspartate Amino Transferase 24 U/L (0-32); Blood Urea Nitrogen 11 mg/dL (8-23); Calcium 9.5 mg/dL (8.5-10.5); Carbon Dioxide 24 mmol/L (22-29); Chloride 101 mmol/L (98-107); Globulin 2.6 g/dL (1.3-4.6); Glomerular Filtration Rate 123.1 mL/min (90-130); Glucose 74 mg/dL (65-115); Potassium 4.1 mmol/L (3.5-5.1); Sodium 139 mmol/L (136-145); Total Bilirubin 0.2 mg/dL (0.15-1.2); Total Protein 6.9 g/dL (6.6-8.7)
[2019-09-05 17:49] LABS: Basophils % 0.2 %; Eosinophils % 0.2 %; Hematocrit 38.4 % (37.0-47.0); Hemoglobin 12.6 g/dL (11.5-15.3); Lymphocytes % 25.9 %; Mean Corpuscular HGB Conc 32.8 g/dL (30.0-36.0); Mean Corpuscular Hemoglobin 31.5 pg (28.0-34.0); Mean Platelet Volume 10.9 fL (7.4-10.4); Monocytes # 0.4 10^3/uL (0.2-0.9); Monocytes % 8.7 %; Neutrophils # 2.6 10^3/uL (1.8-7.7); Neutrophils % 64.5 %; Nucleated Red Blood Cells % 0 %; Platelet Count 312 10^3/cmm (130-400); Red Cell Distribution Width 14.1 % (12.1-15.1)
[2019-09-05 22:11] LABS: Alanine Aminotransferase 28 U/L (0-33); Albumin Level 4.3 g/dL (3.5-5.2); Alkaline Phosphatase 65 IU/L (35-105); Anion Gap 20.1 (5-19); Aspartate Amino Transferase 22 U/L (0-32); Blood Urea Nitrogen 16 mg/dL (8-23); Calcium 9.6 mg/dL (8.5-10.5); Carbon Dioxide 24 mmol/L (22-29); Chloride 100 mmol/L (98-107); Globulin 2.4 g/dL (1.3-4.6); Glomerular Filtration Rate 71.5 mL/min (90-130); Glucose 179 mg/dL (65-115); Osmolality Calculated 291 mOsm/kg (285-295); Potassium 4.1 mmol/L (3.5-5.1); Sodium 140 mmol/L (136-145); Total Bilirubin 0.2 mg/dL (0.15-1.2); Total Protein 6.7 g/dL (6.6-8.7)
[2019-09-06] MEDS: sodium chloride 0.9% 250 ML 75 ML IV (10:16)
--- NOTE | 2019-09-06 11:53 | ONC FU_ITS ---
Dr. Zhou follow up note Patient: Moraima Harris Unit #: [id number]: 1950 Dicatated By: Barbara Zhou M.D.Date of Visit:Sep 06, 2019 Onc Med Follow-up/Prog Note History of Present Illness: Mrs. Harris is a 68-year-old female with history of COPD, chronic smoking and exercise hypoxemia. She recently underwent CT scan of chest which showed 2 separate pulmonary nodules e.g. 1 in the left upper lobe and one in the left lower lobe. Subsequently she underwent CT PET scan on 05/10/2019 which confirmed multiple left lung nodules with SUV of 9.2 the largest of disease in the posterior aspect of left upper lobe measuring up to 0.8 x 1.3 cm. As per discussion with Dr. Orourke radiation oncologist, there are 3 small separate nodules in the left upper lobe and one in the left lower lobe and because of location, SBRT can be performed. CT PET scan showed no mediastinal or hilar lymphadenopathy or any distance metastatic disease. Mrs Harris underwent CT-guided biopsy of left upper lobe nodule on 06/01/2019. 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 Because of underlying lung condition, patient was not a candidate for surgery so she was referred to radiation/medical oncology for evaluation and management.Cancer type ID was done on 06/01/2019 showed squamous cell carcinoma lung as a primary within 77% probability. Mrs Harris denies any history of hemoptysis or hematemesis. She denies any history of bony pains; headaches; blurred vision or double vision. She has history of brain tumor for which she underwent yearly MRI scan for 5-6 years without any progression as per patient at that time she was told it could be a benign lesion or she may have born with it. She also has a skin lesion in left subaxillary area for which she was supposed to see cottage master but she canceled her appointment once she found out about lung cancer. Mrs Harris denies any weight loss. She denies any jaundice or any history of sore throat or dysphagia. She denies any history of vaginal bleeding. Mrs Harris is a chronic smoker and smokes about pack a day-currently. Status post SB RT to left upper lobe lung lesion from 07/13/2019 through 07/22/2019 Status post SB RT to left lower lobe of lung nodule from 07/25/2019 and completed on 08/02/2019.Came for follow-up, denies any specific complaints, no nausea vomiting no fever no chills, no shortness of breath no hemoptysis or hematemesis, tolerated SB RT to left lung nodules well. After completion of the SBRT, Mrs Harris was offered further treatment with chemotherapy consisting of Carboplatin/gemcitabine. The carboplatin is day 1 and gemcitabine is day 1 and 8. She began her first cycle on August 16, 2019. She tolerated it well thus far. Came for follow-up, denies any specific complaints, no fever or chills, no nausea or vomiting no diarrhea constipation and systemic chemotherapy with carboplatin/Gemzar well Medications: Aspirin 81 mg (of 81 mg) Tablet Oral daily, Diclofenac Sodium 75 mg (of 75 mg) Tablet, enteric coated Oral daily, hydroCHLOROthiazide 12.5 mg (of 12.5 mg) Tablet Oral daily, Simvastatin 20 mg (of 20 mg) Tablet Oral daily Allergies: No Known Allergies. Review of Systems: Constitutional - Appetite is good and weight is stable. No fever, chills, hot flashes, or night sweats. Energy level is fair, ENMT - No sinus congestion/drainage. No mouth sores. No sore throat or difficulty swallowing, Hematologic/Lymphatic - No abnormal bruising or bleeding, Respiratory - No shortness of breath. No cough. No pleuritic pain or hemoptysis, Cardiovascular - No angina pain. No palpitations, Gastrointestinal - No nausea or vomiting. No heartburn or acid reflux. No diarrhea or constipation. No blood in the stool or black stools, Genitourinary (F) - No dysuria or hematuria. No urinary frequency. No urgency or incontinence, Musculoskeletal - No joint or bone pain, Neurologic - No headache or dizziness. No numbness/paresthesias or other focal neurologic symptoms, Psychiatric - No anxiety or depression. No insomnia. Vital Signs: Performed on Sep 06, 2019 09:18 Height - 61.00 in Weight - 159.0 lbs (HIGH) BSA - 1.71 sq.m BMI - 30.04 (HIGH) Temperature - 98.4 F Pulse - 85 /min Respiration - 18 /min BP - 140/77 mm(hg) O2 Sat - 97 % Pain - 0 Performance Status: 0 - Fully active, able to carry on all predisease activities without restrictions. (ECOG) Physical Examination: ENMT - No oral exudates, ulcers, masses, thrush or mucositis. Oropharynx clear. Tongue normal, Respiratory - Lungs are clear to auscultation without rhonchi or wheezing, Cardiovascular - Regular rate and rhythm of heart, Abdomen - Non-tender, non-distended, Good bowel sounds. No guarding or rebound tenderness. No pulsatile masses, Extremities - no edema. Lab/Imaging: Test performed on Sep 05, 2019 15:40 Sodium 140 mmol/L Potassium 4.1 mmol/L Chloride 100 mmol/L CO2 24 mmol/L Anion Gap 20.1 BUN 16 mg/dL Creatinine 0.8 mg/dL Cr Clearance (Est) 76.7200 mL/min eGFR 71.5 mL/min Glucose 179 mg/dL Calcium 9.6 mg/dL Protein, Total 6.7 g/dL Albumin 4.3 g/dL Globulin 2.4 g/dL Bilirubin, Total 0.2 mg/dL ALT (SGPT) 28 U/L AST (SGOT) 22 U/L Alkaline Phosphatase 65 IU/L WBC 4.0 10 3/uL RBC 4.00 10 6/uL HGB 12.6 g/dL HCT 38.4 % MCV 96.0 fL MCH 31.5 pg MCHC 32.8 g/dL RDW 14.1 % Platelet Count 312 10 3/cmm MPV 10.9 fL Neutrophils 2.6 10 3/uL Lymphocytes 1.0 10 3/uL Monocytes 0.4 10 3/uL Eosinophils 0.0 10 3/uL Basophils 0.0 10 3/uL Neutrophil % 64.5 % Lymphocyte % 25.9 % Monocyte % 8.7 % Eosinophil % 0.2 % Basophils % 0.2 % Test performed on Jul 13, 2019 14:34 Manual Lymphocytes 24.3 % Manual Monocytes 5.4 % Manual Eosinophils 0.5 % Manual Basophils 0.4 % NRBCs 0.0 /100 WBC Impression: Moderately differentiated squamous cell carcinoma per CT-guided biopsy of left upper lobe lung done on 06/01/2019 Immunohistochemistry showed positive for p40 and negative for TTF-1. next generation sequencing was negative for ALK, EGFR, PIK 3 CA, ROS 1, TP 53,BRAF and PDL 1 was not checked because of insufficient tumor CT PET scan done on 05/10/2019 showed multiple hypermetabolic nodules in left lung e.g. 3 closely related nodules in upper left lobe largest being 0.8 x 1.3 cm and one in the left lower lobe. Cancer type ID confirmed lung being primary at 77% probability Clinical stage T4 ( lesions in ipsilateral separate lobes) NX M0 stage IIIa COPD, exercise hypoxemia, chronic smoking Mrs Byse tolerated SB RT to left upper lobe lung nodules as well as left lower lobe lung nodule well. She has been advised to pursue further treatment . Earlier patient required cancer type ID to confirm the primary as with clinical presentation metastatic disease was one of the possibility but cancer type ID confirmed pulmonary being primary with 77% probability, we will also consider PDL 1 status and molecular profiling of the tumor Dr Zhou discussed the role of adjuvant chemotherapy as patient was not a candidate for surgery but underwent SB RT. recommended systemic chemotherapy with carboplatin AUC 5 on day 1 and gemcitabine 1,000mg per meter square day 1 and day 8 and repeat every 21 days ???4 cycles. She began her first cycle of carboplatin gemcitabine on August 16, 2019. Plan: Discussed with patient regarding her labs white blood count 4 hemoglobin 12.6 crit 38.4 platelets 312,002 2600 CMP within normal limit except glucose 179 Clinically, patient doing well, tolerating systemic chemotherapy with carboplatin and gemcitabine well but with expected side effects e.g. progressive neutropenia/leukopenia. We'll consider cycle #2 day 1 and with carboplatin/gemcitabine today and then return to clinic in 1 week for day 8 gemcitabine. Her follow-up lab workup shows progressive leukopenia/neutropenia, which will cause delay in the treatment scheduled so we will consider Neupogen 400 ???g subcutaneous daily for 2-3 days, in between chemotherapy dose to maintain chemotherapy schedule and dosing, will obtain approval from her insurance. Return to clinic in 1 week with CBC CMP and reasonable for the treatment Signed By: Barbara Zhou M.D. <<Signature on File>>
[2019-09-12 16:17] LABS: Basophils % 1.3 %; Eosinophils % 0.7 %; Hemoglobin 12.7 g/dL (11.5-15.3); Lymphocytes # 0.8 10^3/uL (0.8-4.8); Lymphocytes % 53.3 %; Mean Corpuscular HGB Conc 32.6 g/dL (30.0-36.0); Mean Corpuscular Hemoglobin 32.2 pg (28.0-34.0); Mean Corpuscular Volume 98.7 fL (81-99); Mean Platelet Volume 11.6 fL (7.4-10.4); Monocytes # 0.1 10^3/uL (0.2-0.9); Monocytes % 3.3 %; Neutrophils % 41.4 %; Nucleated Red Blood Cells % 0 %; Platelet Count 273 10^3/cmm (130-400); Red Blood Count 3.95 10^6/uL (4.1-5.3); White Blood Count 1.5 10^3/uL (4.0-10.0)
[2019-09-12 16:27] LABS: Neutrophils # 0.6 10^3/uL (1.8-7.7)
[2019-09-12 17:37] LABS: Alanine Aminotransferase 46 U/L (0-33); Albumin Level 4.4 g/dL (3.5-5.2); Alkaline Phosphatase 60 IU/L (35-105); Anion Gap 18.4 (5-19); Aspartate Amino Transferase 25 U/L (0-32); Blood Urea Nitrogen 6 mg/dL (8-23); Calcium 9.4 mg/dL (8.5-10.5); Carbon Dioxide 26 mmol/L (22-29); Chloride 101 mmol/L (98-107); Globulin 2.9 g/dL (1.3-4.6); Glomerular Filtration Rate 123.1 mL/min (90-130); Glucose 122 mg/dL (65-115); Osmolality Calculated 289 mOsm/kg (285-295); Potassium 4.4 mmol/L (3.5-5.1); Sodium 141 mmol/L (136-145); Total Bilirubin 0.3 mg/dL (0.15-1.2); Total Protein 7.3 g/dL (6.6-8.7)
--- NOTE | 2019-09-13 | CT_ITS ---
WS: [id number] CT CHEST TECHNIQUE: Contrast enhanced CT of the chest with coronal and sagittal reformatted images. CLINICAL INFORMATION: LUNG CANCER COMPARISON: CT June 01, 2019 and PET/CT May 09, 2019 DLP: 755.[address] scans at [facility] use at least one of these dose optimization techniques: automat ed exposure control; mA and/or kV adjustment per patient size (includes targeted exams where dose is matched to clinical indication); or iterative reconstruction. FINDINGS: Moderate chronic emphysematous changes. No acute pulmonary infiltrates. No consolidation or pleural f luid. No focal pneumonia. Previously described FDG avid lesions seen on the outside PET/CT in the lef t upper lobe along the fissure, superior segment left lower lobe, and left lower lobe posteriorly has significantly decreased in size and essentially resolved. Small amount of residual soft tissue thick ening in the area of treatment. This is most prominent involving the left upper lobe lesion along the fissure with residual parenchymal density measuring 10 mm. Tiny amount of residual parenchymal densi ty/fibrosis in the superior segment left lower lobe lesion measuring 6 mm. Left lower lobe posterior lesion essentially resolved. Findings consistent with response to therapy. No new suspicious opacitie s. No mediastinal or hilar lymphadenopathy aortic calcification. Bilateral nodular breast tissue. Recomm end annual screening mammography. Adrenal glands are normal. Small low-attenuation lesion in the spleen measuring 8 mm nonspecific but may represent \cavernous h emangioma. Tiny cyst left hepatic lobe partially visualized. Small esophageal hiatal hernia. Moderate thoracic kyphosis. 1 cm left inferior lobe thyroid nodule. CT/CT chest w con* [id number] IMPRESSION: 1. Previously described FDG avid nodules in the left upper lobe and left lower lobe have essentially resolved with a small amount of residual parenchymal tis carlos. Findings consistent with interval response to therapy. 2. No mediastinal or hilar lymphadenopathy. 3. Small esophageal hiatal hernia. 4. Low-attenuation lesion in the spleen measuring 8 mm nonspecific but may rep resent benign cavernous hemangioma. 5. Left thyroid nodule measuring 1 cm. This could followed up with ultrasound on elective basis. 6. Bilateral nodular breast tissue. Recommend annual screening mammography.
[2019-09-15 12:25] LABS: Basophils # 0.1 10^3/uL (0.0-0.1); Basophils % 0.4 %; Eosinophils % 0.1 %; Hematocrit 37.4 % (37.0-47.0); Hemoglobin 12.4 g/dL (11.5-15.3); Lymphocytes # 1.7 10^3/uL (0.8-4.8); Lymphocytes % 7.7 %; Mean Corpuscular HGB Conc 33.2 g/dL (30.0-36.0); Mean Corpuscular Volume 99.5 fL (81-99); Mean Platelet Volume 10.7 fL (7.4-10.4); Monocytes % 4.7 %; Neutrophils # 17.5 10^3/uL (1.8-7.7); Neutrophils % 78.1 %; Nucleated Red Blood Cells % 0.1 %; Platelet Count 147 10^3/cmm (130-400); Red Blood Count 3.76 10^6/uL (4.1-5.3); Red Cell Distribution Width 14.3 % (12.1-15.1); White Blood Count 22.3 10^3/uL (4.0-10.0)
[2019-09-15 12:58] LABS: Slide Review Slide Review Perform
[2019-09-19 09:11] LABS: Basophils % 0.5 %; Eosinophils % 0.1 %; Hematocrit 37.3 % (37.0-47.0); Hemoglobin 12.5 g/dL (11.5-15.3); Lymphocytes # 1.4 10^3/uL (0.8-4.8); Lymphocytes % 18.9 %; Mean Corpuscular HGB Conc 33.5 g/dL (30.0-36.0); Mean Corpuscular Hemoglobin 33.2 pg (28.0-34.0); Mean Corpuscular Volume 98.9 fL (81-99); Monocytes # 1.1 10^3/uL (0.2-0.9); Monocytes % 15.4 %; Neutrophils # 3.3 10^3/uL (1.8-7.7); Neutrophils % 44.6 %; Nucleated Red Blood Cells # 0.1 /100WBC; Platelet Count 87 10^3/cmm (130-400); Red Blood Count 3.77 10^6/uL (4.1-5.3); Red Cell Distribution Width 14.9 % (12.1-15.1); White Blood Count 7.4 10^3/uL (4.0-10.0)
[2019-09-19 09:33] LABS: Alanine Aminotransferase 20 U/L (0-33); Albumin Level 4.5 g/dL (3.5-5.2); Alkaline Phosphatase 82 IU/L (35-105); Aspartate Amino Transferase 18 U/L (0-32); Blood Urea Nitrogen 12 mg/dL (8-23); Calcium 9.8 mg/dL (8.5-10.5); Carbon Dioxide 30 mmol/L (22-29); Chloride 104 mmol/L (98-107); Globulin 2.6 g/dL (1.3-4.6); Glomerular Filtration Rate 123.1 mL/min (90-130); Glucose 125 mg/dL (65-115); Osmolality Calculated 294 mOsm/kg (285-295); Sodium 143 mmol/L (136-145); Total Bilirubin 0.2 mg/dL (0.15-1.2); Total Protein 7.1 g/dL (6.6-8.7)
[2019-09-19 09:47] LABS: Slide Review Slide Review Perform
[2019-09-19 09:51] LABS: Absolute Segmented Neutrophil 3.1 10/cmm (1.6-7.1); Band Neutrophils Absolute 1.3 10^3/cmm (0.0-1.2); Lymphocytes 20 %; Monocytes Absolute 0.9 10^3/cmm (0.1-0.6); Platelet Estimate Decreased (Normal); Segmented Neutrophils 42 %; Total Cells Counted 100 (0-100)
--- NOTE | 2019-09-19 09:54 | ONCRAD EPV_ITS ---
Radiation Oncology Established Patient Visit Patient: Melo MR#: [id number] : 1950> Age: 68> Sex: Female> Dictated by: Dr. Korey Richards Date of Service: 09/19/2019 Referring Physician(s) : Otto Sanchez M.D. Diagnosis: C34.12 - Malignant neoplasm of upper lobe, left bronchus or lung, Diagnosed 06/08/2019 (Active) C34.92 - Malignant neoplasm of unspecified part of left bronchus or lung, Diagnosed 06/01/2019 (Active) Radiotherapy to Date: Course: LT Lung [id number], Treatment Site: LT LungU SBRT, Ref. ID: [id number] SBRT, Energy: 6X, Dose/Fx (cGy): 1,200, #Fx: 4 / 4, Dose Correction (cGy): 0, Total Dose (cGy): 4,800, Start Date: 07/13/2019, End Date: 07/22/2019, Elapsed Days: 9 Treatment Site: LT LungL SBRT, Ref. ID: LLL SBRT, Energy: 6X, Dose/Fx (cGy): 1,200, #Fx: 4 / 4, Dose Correction (cGy): 0, Total Dose (cGy): 4,800, Start Date: 07/25/2019, End Date: 08/02/2019, Elapsed Days: 8 Chief Complaint / History of Present Illness: Ms. nazanin Harris returns for follow-up. She had a CT performed 09/14/2019. She completed radiation to 420. She had SBRT to both the left upper lobe and the left lower lobe. She tolerated radiation well. She has no residual side effects. She is now receiving systemic therapy. The CT performed 09/14/2019 has shown a good response to treatment. There is a small amount of residual tissue seen in the area of the nodules but they have basically resolved. I reviewed the study as well as the patient's prior PET and the CT done when she had the CT-guided needle biopsy. There has definitely been a good response. The patient's dyspnea with exertion is stable. She does not wear oxygen during the day. She uses it with CPAP at night. Her appetite is good and her performance status is essentially unchanged. She has no unusual bone pain. She did have some bone pain last week after an injection for a low white blood cell count. The pain has resolved. She has no troublesome pulmonary symptoms. Current Medications: Aspirin, cARBOplatin, dexamethasone Sodium Phosphate, diclofenac Sodium, emend, gemcitabine HCl, hydroCHLOROthiazide, lidocaine-Prilocaine, neupogen, palonosetron HCl, prochlorperazine Maleate, simvastatin. Allergies: No Known Allergies Current Complaints / Review of Systems: . Vital Signs: Physical Exam: Alert, oriented, no acute distress. She does not appear ill at all. Her nutritional status appears excellent. She has no cervical or supraclavicular lymphadenopathy. Lungs clear to percussion. On auscultation breath sounds are reduced bilaterally but are clear without rales, rhonchi, or wheezes. Heart rhythm regular. No murmur, gallop, or rub. Abdomen has no distention. No organomegaly or mass or tenderness. Musculoskeletal she has a normal gait without assistance. No bone tenderness. Performance Status: KPS 80/100 Lab: None pending. Test performed on 09/05/2019 3:40 PM Anion Gap - 20.1 (high), eGFR - 71.5 ml/min (low), Glucose - 179 mg/dl (high), Test performed on 09/12/2019 9:10 AM WBC - 1.5 10 3/ul (low), RBC - 3.95 10 6/ul (low), MPV - 11.6 fl (high), Neutrophils - 0.6 10 3/ul (low) and Monocytes - 0.1 10 3/ul (low). Pathology: Primary, c34.12 - malignant neoplasm of upper lobe, left bronchus or lung, Diagnosed 06/08/2019 (active) and Primary, c34.92 - malignant neoplasm of unspecified part of left bronchus or lung, Diagnosed 06/01/2019 (active). Imaging: See HPI Impression: Excellent response to SBRT. She has no troublesome side effects from radiation. She is now receiving systemic therapy. I recommended that she return in 4months. One other item was discussed. On her CT, the radiologist indicated that there is bilateral nodular breast tissue. The patient has not had a mammogram in several years. She could not give a specific date. I clearly recommended to her that we order a mammogram. She did not agree to it. Signed by: 09/19/2019 9:53:29 AM <<Signature on File>> Time spent with patient: CPT Code: CPT Code:
--- NOTE | 2019-09-19 15:48 | ONC FU_ITS ---
Dr. Zhou follow up note Patient: Moraima Harris < Unit #: [id number]: 1950 Dicatated By: Barbara Zhou M.D.Date of Visit:Sep 19, 2019 Onc Med Follow-up/Prog Note History of Present Illness: Mrs. Harris is a 68-year-old female with history of COPD, chronic smoking and exercise hypoxemia. She recently underwent CT scan of chest which showed 2 separate pulmonary nodules e.g. 1 in the left upper lobe and one in the left lower lobe. Subsequently she underwent CT PET scan on 05/10/2019 which confirmed multiple left lung nodules with SUV of 9.2 the largest of disease in the posterior aspect of left upper lobe measuring up to 0.8 x 1.3 cm. As per discussion with Dr. Orourke radiation oncologist, there are 3 small separate nodules in the left upper lobe and one in the left lower lobe and because of location, SBRT can be performed. CT PET scan showed no mediastinal or hilar lymphadenopathy or any distance metastatic disease. Mrs Harris underwent CT-guided biopsy of left upper lobe nodule on 06/01/2019. 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 Because of underlying lung condition, patient was not a candidate for surgery so she was referred to radiation/medical oncology for evaluation and management.Cancer type ID was done on 06/01/2019 showed squamous cell carcinoma lung as a primary within 77% probability. Mrs Harris denies any history of hemoptysis or hematemesis. She denies any history of bony pains; headaches; blurred vision or double vision. She has history of brain tumor for which she underwent yearly MRI scan for 5-6 years without any progression as per patient at that time she was told it could be a benign lesion or she may have born with it. She also has a skin lesion in left subaxillary area for which she was supposed to see product trainer but she canceled her appointment once she found out about lung cancer. Mrs Harris denies any weight loss. She denies any jaundice or any history of sore throat or dysphagia. She denies any history of vaginal bleeding. Mrs Harris is a chronic smoker and smokes about pack a day-currently. Status post SB RT to left upper lobe lung lesion from 07/13/2019 through 07/22/2019 Status post SB RT to left lower lobe of lung nodule from 07/25/2019 and completed on 08/02/2019 tolerated SB RT to left lung nodules well. After completion of the SBRT, Mrs Harris was offered further treatment with chemotherapy consisting of Carboplatin/gemcitabine. The carboplatin is day 1 and gemcitabine is day 1 and 8. She began her first cycle on August 16, 2019. Follow-up CT scan of chest done on 09/14/2019 showed previously described FDG avid nodules in the left upper lobe and left lower lobe have essentially resolved with a small amount of residual parenchymal tissue. No mediastinal or hilar lymphadenopathy. Small esophageal hiatal hernia. Low-attenuation lesion in the spleen measuring 8mm nonspecific but may represent benign cavernous angioma. Came for follow-up, denies any specific complaints, no fever or chills, no nausea or vomiting no diarrhea constipation, no nosebleed or gum bleed, no petechiae or ecchymosis.tolerating adjuvant therapy with carboplatin/gemcitabine well Medications: Aspirin 81 mg (of 81 mg) Tablet Oral daily, Diclofenac Sodium 75 mg (of 75 mg) Tablet, enteric coated Oral daily, hydroCHLOROthiazide 12.5 mg (of 12.5 mg) Tablet Oral daily, Simvastatin 20 mg (of 20 mg) Tablet Oral daily Allergies: No Known Allergies. Review of Systems: Constitutional - Appetite is good and weight is stable. No fever, chills, hot flashes, or night sweats. Energy level is fair, ENMT - No sinus congestion/drainage. No mouth sores. No sore throat or difficulty swallowing, Hematologic/Lymphatic - No abnormal bruising or bleeding, Respiratory - No shortness of breath. No cough. No pleuritic pain or hemoptysis, Cardiovascular - No angina pain. No palpitations, Gastrointestinal - No nausea or vomiting. No heartburn or acid reflux. No diarrhea or constipation. No blood in the stool or black stools, Genitourinary (F) - No dysuria or hematuria. No urinary frequency. No urgency or incontinence, Musculoskeletal - No joint or bone pain, Neurologic - No headache or dizziness. No numbness/paresthesias or other focal neurologic symptoms, Psychiatric - No anxiety or depression. No insomnia. Vital Signs: Performed on Sep 19, 2019 09:07 Height - 61.00 in Weight - 158.4 lbs Temperature - 98.9 F Pulse - 92 Respiration - 20 BP - 147/83 mm(hg) (HIGH) O2 Sat - 96 % Pain - 4 Performed on Sep 19, 2019 09:07 BMI - 29.93 kg/m2 (HIGH) Performance Status: 0 - Fully active, able to carry on all predisease activities without restrictions. (ECOG) Physical Examination: ENMT - No oral exudates, ulcers, masses, thrush or mucositis. Oropharynx clear. Tongue normal, Respiratory - Lungs are clear to auscultation without rhonchi or wheezing, Cardiovascular - Regular rate and rhythm of heart, Abdomen - Non-tender, non-distended Good bowel sounds. No guarding or rebound tenderness. No pulsatile masses, Extremities - no edema. Lab/Imaging: Test performed on Sep 12, 2019 09:10 WBC 1.5 10 3/uL RBC 3.95 10 6/uL HGB 12.7 g/dL HCT 39.0 % MCV 98.7 fL MCH 32.2 pg MCHC 32.6 g/dL RDW 14.0 % Platelet Count 273 10 3/cmm MPV 11.6 fL Neutrophils 0.6 10 3/uL Lymphocytes 0.8 10 3/uL Monocytes 0.1 10 3/uL Eosinophils 0.0 10 3/uL Basophils 0.0 10 3/uL Neutrophil % 41.4 % Lymphocyte % 53.3 % Monocyte % 3.3 % Eosinophil % 0.7 % Basophils % 1.3 % Test performed on Sep 05, 2019 15:40 Sodium 140 mmol/L Potassium 4.1 mmol/L Chloride 100 mmol/L CO2 24 mmol/L Anion Gap 20.1 BUN 16 mg/dL Creatinine 0.8 mg/dL Cr Clearance (Est) 76.7200 mL/min eGFR 71.5 mL/min Glucose 179 mg/dL Calcium 9.6 mg/dL Protein, Total 6.7 g/dL Albumin 4.3 g/dL Globulin 2.4 g/dL Bilirubin, Total 0.2 mg/dL ALT (SGPT) 28 U/L AST (SGOT) 22 U/L Alkaline Phosphatase 65 IU/L Test performed on Jul 13, 2019 14:34 Manual Lymphocytes 24.3 % Manual Monocytes 5.4 % Manual Eosinophils 0.5 % Manual Basophils 0.4 % NRBCs 0.0 /100 WBC Impression: Moderately differentiated squamous cell carcinoma per CT-guided biopsy of left upper lobe lung done on 06/01/2019 Immunohistochemistry showed positive for p40 and negative for TTF-1. CT PET scan done on 05/10/2019 showed multiple hypermetabolic nodules in left lung e.g. 3 closely related nodules in upper left lobe largest being 0.8 x 1.3 cm and one in the left lower lobe. Cancer type ID confirmed lung being primary at 77% probability Clinical stage T4 ( lesions in ipsilateral separate lobes) NX M0 stage IIIa COPD, exercise hypoxemia, chronic smoking Mrs Harris tolerated SB RT to left upper lobe lung nodules as well as left lower lobe lung nodule well. She has been advised to pursue further treatment per Dr Zhou. Earlier patient required cancer type ID to confirm the primary as with clinical presentation metastatic disease was one of the possibility but cancer type ID confirmed pulmonary being primary with 77% probability, we will also consider PDL 1 status and molecular profiling of the tumor Dr Zhou discussed the role of adjuvant chemotherapy as patient was not a candidate for surgery but underwent SB RT. Dr Zhuo recommended systemic chemotherapy with carboplatin AUC 5 on day 1 and gemcitabine 1,000mg per meter square day 1 and day 8 and repeat every 21 days ???4 cycles. She began her first cycle of carboplatin gemcitabine on August 16, 2019. Plan: Discussed with patient regarding her labs white blood count 7.4 hemoglobin 12.5 hematocrit 37.3 platelets 87,000 CMP within normal limits and CT scan of chest findings. Clinically, patient doing well with no signs symptoms suggestive of recurrence/progression of disease. Her follow-up CT scan of chest shows excellent response to SB RT e.g. both left lung nodules resolved. Now being treated with adjuvant systemic chemotherapy with carboplatin/gemcitabine. Her follow-up lab shows progressive thrombocytopenia. We will hold her day 8 gemcitabine today and then return to clinic in 1 week with CBC and if it shows resolution of thrombocytopenia we'll consider day [address] scan of chest in addition to resolution of left upper and left lower lobe pulmonary nodules, bilateral nodular breast tissue, mammogram is recommended so we will order mammogram. Signed By: Barbara Zhou M.D. <<Signature on File>>
[2019-09-26 09:45] LABS: Basophils % 0.5 %; Eosinophils % 0.5 %; Hematocrit 36.3 % (37.0-47.0); Hemoglobin 11.9 g/dL (11.5-15.3); Lymphocytes # 1.3 10^3/uL (0.8-4.8); Lymphocytes % 18.8 %; Mean Corpuscular HGB Conc 32.8 g/dL (30.0-36.0); Mean Corpuscular Hemoglobin 32.5 pg (28.0-34.0); Mean Corpuscular Volume 99.2 fL (81-99); Mean Platelet Volume 10.5 fL (7.4-10.4); Monocytes # 0.5 10^3/uL (0.2-0.9); Monocytes % 7.1 %; Neutrophils # 4.8 10^3/uL (1.8-7.7); Neutrophils % 72.2 %; Nucleated Red Blood Cells % 0 %; Platelet Count 203 10^3/cmm (130-400); Red Blood Count 3.66 10^6/uL (4.1-5.3); Red Cell Distribution Width 16.4 % (12.1-15.1); White Blood Count 6.7 10^3/uL (4.0-10.0)
[2019-09-26 10:01] LABS: Alanine Aminotransferase 15 U/L (0-33); Albumin Level 4.3 g/dL (3.5-5.2); Alkaline Phosphatase 67 IU/L (35-105); Anion Gap 17.8 (5-19); Aspartate Amino Transferase 16 U/L (0-32); Blood Urea Nitrogen 9 mg/dL (8-23); Carbon Dioxide 27 mmol/L (22-29); Chloride 101 mmol/L (98-107); Globulin 2.3 g/dL (1.3-4.6); Glomerular Filtration Rate 83.5 mL/min (90-130); Glucose 121 mg/dL (65-115); Osmolality Calculated 291 mOsm/kg (285-295); Potassium 3.8 mmol/L (3.5-5.1); Sodium 142 mmol/L (136-145); Total Bilirubin 0.2 mg/dL (0.15-1.2); Total Protein 6.6 g/dL (6.6-8.7)
--- NOTE | 2019-09-26 11:04 | ONC FU_ITS ---
Dr. Zhou follow up note Patient: Moraima Harris < Unit #: [id number]: 1950 Dicatated By: Barbara Zhou M.D.Date of Visit:Sep 26, 2019 Onc Med Follow-up/Prog Note History of Present Illness: Mrs. Harris is a 68-year-old female with history of COPD, chronic smoking and exercise hypoxemia. She recently underwent CT scan of chest which showed 2 separate pulmonary nodules e.g. 1 in the left upper lobe and one in the left lower lobe. Subsequently she underwent CT PET scan on 05/10/2019 which confirmed multiple left lung nodules with SUV of 9.2 the largest of disease in the posterior aspect of left upper lobe measuring up to 0.8 x 1.3 cm. As per discussion with Dr. Orourke radiation oncologist, there are 3 small separate nodules in the left upper lobe and one in the left lower lobe and because of location, SBRT can be performed. CT PET scan showed no mediastinal or hilar lymphadenopathy or any distance metastatic disease. Mrs Harris underwent CT-guided biopsy of left upper lobe nodule on 06/01/2019. 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 Because of underlying lung condition, patient was not a candidate for surgery so she was referred to radiation/medical oncology for evaluation and management.Cancer type ID was done on 06/01/2019 showed squamous cell carcinoma lung as a primary within 77% probability. Mrs Harris denies any history of hemoptysis or hematemesis. She denies any history of bony pains; headaches; blurred vision or double vision. She has history of brain tumor for which she underwent yearly MRI scan for 5-6 years without any progression as per patient at that time she was told it could be a benign lesion or she may have born with it. She also has a skin lesion in left subaxillary area for which she was supposed to see hazardous materials tanker driver but she canceled her appointment once she found out about lung cancer. Mrs Harris denies any weight loss. She denies any jaundice or any history of sore throat or dysphagia. She denies any history of vaginal bleeding. Mrs Harris is a chronic smoker and smokes about pack a day-currently. Status post SB RT to left upper lobe lung lesion from 07/13/2019 through 07/22/2019 Status post SB RT to left lower lobe of lung nodule from 07/25/2019 and completed on 08/02/2019 tolerated SB RT to left lung nodules well. After completion of the SBRT, Mrs Harris was offered further treatment with chemotherapy consisting of Carboplatin/gemcitabine. The carboplatin is day 1 and gemcitabine is day 1 and 8. She began her first cycle on August 16, 2019. Follow-up CT scan of chest done on 09/14/2019 showed previously described FDG avid nodules in the left upper lobe and left lower lobe have essentially resolved with a small amount of residual parenchymal tissue. No mediastinal or hilar lymphadenopathy. Small esophageal hiatal hernia. Low-attenuation lesion in the spleen measuring 8mm nonspecific but may represent benign cavernous angioma. Came for follow-up, complaining of mid chest heaviness like a 'heavy brick' and radiating to the neck, for the last 10 days, since Neupogen shots were given, more often with eating or exertion, also feeling short of breath during the episode. Cannot lay on the back. Patient has 2 sisters with hiatal hernia , with a similar symptoms, patient said once she was told she may have 'CHF'. Denies any palpitation ,denies any pain radiating to left arm. Denies any nausea vomiting denies any hematemesis or hemoptysis but off and on indigestion with spicy foods. No fever or chills, no diarrhea constipation, no trauma to the chest. Medications: Aspirin 81 mg (of 81 mg) Tablet Oral daily, Diclofenac Sodium 75 mg (of 75 mg) Tablet, enteric coated Oral daily, hydroCHLOROthiazide 12.5 mg (of 12.5 mg) Tablet Oral daily, Simvastatin 20 mg (of 20 mg) Tablet Oral daily Allergies: No Known Allergies. Review of Systems: Constitutional - Appetite is good and weight is stable. No fever, chills, hot flashes, or night sweats. Energy level is fair, ENMT - No sinus congestion/drainage. No mouth sores. No sore throat or difficulty swallowing, Hematologic/Lymphatic - No abnormal bruising or bleeding, Respiratory - No shortness of breath. No cough. No pleuritic pain or hemoptysis, Cardiovascular - No angina pain. No palpitations, Gastrointestinal - No nausea or vomiting. No heartburn or acid reflux. No diarrhea or constipation. No blood in the stool or black stools, Genitourinary (F) - No dysuria or hematuria. No urinary frequency. No urgency or incontinence, Musculoskeletal - No joint or bone pain, Neurologic - No headache or dizziness. No numbness/paresthesias or other focal neurologic symptoms, Psychiatric - No anxiety or depression. No insomnia. Vital Signs: Performed on Sep 26, 2019 10:18 Height - 61.00 in Weight - 159.6 lbs (HIGH) BSA - 1.72 sq.m BMI - 30.16 (HIGH) Temperature - 98.7 F Pulse - 92 /min Respiration - 24 /min BP - 159/92 mm(hg) (HIGH) O2 Sat - 96 % Pain - 6 Performance Status: 0 - Fully active, able to carry on all predisease activities without restrictions. (ECOG) Physical Examination: ENMT - No oral exudates, ulcers, masses, thrush or mucositis. Oropharynx clear, Respiratory - Lungs are clear to auscultation without rhonchi or wheezing, Cardiovascular - Regular rate and rhythm of heart, Extremities - no edema. Lab/Imaging: Test performed on Sep 19, 2019 08:57 Sodium 143 mmol/L Potassium 4.0 mmol/L Chloride 104 mmol/L CO2 30 mmol/L Anion Gap 13.0 BUN 12 mg/dL Creatinine 0.5 mg/dL Cr Clearance (Est) 122.7500 mL/min eGFR 123.1 mL/min Glucose 125 mg/dL Calcium 9.8 mg/dL Protein, Total 7.1 g/dL Albumin 4.5 g/dL Globulin 2.6 g/dL Bilirubin, Total 0.2 mg/dL ALT (SGPT) 20 U/L AST (SGOT) 18 U/L Alkaline Phosphatase 82 IU/L WBC 7.4 10 3/uL Manual Bands % 18.0 % RBC 3.77 10 6/uL HGB 12.5 g/dL Manual Lymphs % 20 % HCT 37.3 % Manual Monos % 12.0 % MCV 98.9 fL MCH 33.2 pg MCHC 33.5 g/dL Metamyelocytes % 6.0 % RDW 14.9 % Myelocytes % 2.0 % Platelet Count 87 10 3/cmm MPV 11.0 fL Neutrophils 3.3 10 3/uL Lymphocytes 1.4 10 3/uL Monocytes 1.1 10 3/uL Eosinophils 0.0 10 3/uL Basophils 0.0 10 3/uL Neutrophil % 44.6 % Lymphocyte % 18.9 % Monocyte % 15.4 % Eosinophil % 0.1 % Basophils % 0.5 % CBC Slide Review Slide Review Perform Manual Bands Abs 1.3 10 3/cmm Manual Monocytes Abs 0.9 10 3/cmm Test performed on Jul 13, 2019 14:34 Manual Eosinophils 0.5 % Manual Basophils 0.4 % NRBCs 0.0 /100 WBC Impression: Moderately differentiated squamous cell carcinoma per CT-guided biopsy of left upper lobe lung done on 06/01/2019 Immunohistochemistry showed positive for p40 and negative for TTF-1. CT PET scan done on 05/10/2019 showed multiple hypermetabolic nodules in left lung e.g. 3 closely related nodules in upper left lobe largest being 0.8 x 1.3 cm and one in the left lower lobe. Cancer type ID confirmed lung being primary at 77% probability Clinical stage T4 ( lesions in ipsilateral separate lobes) NX M0 stage IIIa COPD, exercise hypoxemia, chronic smoking Mrs Byse tolerated SB RT to left upper lobe lung nodules as well as left lower lobe lung nodule well. She has been advised to pursue further treatment per Dr Zhou. Earlier patient required cancer type ID to confirm the primary as with clinical presentation metastatic disease was one of the possibility but cancer type ID confirmed pulmonary being primary with 77% probability, we will also consider PDL 1 status and molecular profiling of the tumor Dr Zhou discussed the role of adjuvant chemotherapy as patient was not a candidate for surgery but underwent SB RT. Dr Zhou recommended systemic chemotherapy with carboplatin AUC 5 on day 1 and gemcitabine 1,000mg per meter square day 1 and day 8 and repeat every 21 days ???4 cycles. She began her first cycle of carboplatin gemcitabine on August 16, 2019. Plan: Discussed with patient regarding her labs white blood count 6.7 hemoglobin 11.9 crit 36.3 platelets 203,000 CMP within normal limits Clinically, patient is doing reasonably well now with mild to moderate distress due to midchest heaviness radiating to the neck since she was given Neupogen shots. Initially impression was sternal discomfort due to bone marrow expansion due to colony-stimulating factors as outlined white blood count gone up to 22,000 on 09/15/2019 but then since then her white blood count has been drop this significantly and today's 6.7 and with that if her symptoms are due to bone marrow expansion, should improve. But now patient is saying she is experiencing these symptoms more often especially with exertion and heavy meals, other possibility could be hiatal hernia but concern is cardiac as patient is a high risk considering her age. Case was discussed with emergency room physician, will send her to ER for evaluation. And we will hold her scheduled chemotherapy today and then she will return to clinic in 1 week unless cardiac etiology ruled out and [facility] in that case we'll consider day 8 chemotherapy with gemcitabine, early. And also follow-up on thyroid sonogram and mammogram, Signed By: Barbara Zhou M.D. <<Signature on File>>
[2019-09-26] MEDS: sodium chloride 0.9% 250 ML 75 ML IV (14:43)
== END 2019-09-27 23:59 | disposition home or self-care (01) ==
LOC: ONCMED 06:29
PROVIDERS: Internal Medicine Medical Oncology; Nurse Practitioner; Visit Provider Internal Medicine Hematology & Oncology
DX: Z51.11 Encounter for antineoplastic chemotherapy (principal); C34.12 Malignant neoplasm of upper lobe, left bronchus or lung; D70.1 Agranulocytosis secondary to cancer chemotherapy; T45.1X5A Adverse effect of antineoplastic and immunosuppressive drugs, initial encounter; R09.89 Other specified symptoms and signs involving the circulatory and respiratory systems; J44.9 Chronic obstructive pulmonary disease, unspecified; F17.200 Nicotine dependence, unspecified, uncomplicated; R92.8 Other abnormal and inconclusive findings on diagnostic imaging of breast; R09.02 Hypoxemia; Z79.899 Other long term (current) drug therapy; Z79.82 Long term (current) use of aspirin; Z92.3 Personal history of irradiation
CPT/HCPCS: 36415; 36591; 71260; 80053; 85007; 85025; 96367; 96372; 96413; 96417; 99213; 99214; J1100; J1442; J1453; J2405; J7050; J9045; J9201; Q9967

== ENCOUNTER 2019-09-26 10:54 | Emergency (ER) | payer MEDICARE, OTHER, SELFPAY ==
[2019-09-26 10:57] VITALS: BP 148/74; PULSE 111; RESP 18; TEMP 36.6; O2SAT 96; BMI 29.8
--- NOTE | 2019-09-26 11:06 | XR_ITS ---
WS: [id number] PORTABLE CHEST HISTORY: cp COMPARISON: None available. RIGHT Port-A-Cath has been placed in good position. Tip in the distal SVC. Minimal scarring in the LE FT upper lobe. No new or suspicious nodule. No pneumonia. No pleural effusion or pneumothorax. Cardiac size: Normal. Mediastinum/Aorta: Normal mediastinum. No osseous abnormality seen. XR/XR chest 1V portable [id number] IMPRESSION: Stable chest. No acute cardiopulmonary disease.
--- NOTE | 2019-09-26 11:06 | ECG_ITS ---
Measurements Intervals [place] Rate: 90 P: 43 AL: 161 QRS: 31 QRSD: 86 T: 16 QT: 357 QTc: [address] DEPRESSION [0.025+ mV ST DEPRESSION] No previous ECG available for comparison Electronically Signed On 09-26-2019 18:14:54 CDT by Tawny Locke M.D. [email or web address]
--- NOTE | 2019-09-26 11:16 | ED_ITS ---
HPI - Chest Pain General: Chief Complaint: Chest Pain Stated Complaint: DOC SENT OVER Time Seen by Provider: 09/26/19 11:05 Source: patient Mode of arrival: ambulatory Limitations: no limitations History of Present Illness: HPI narrative: 68-year-old female who has a history of non-small cell carcinoma who has had chest pain for last 2 weeks. She states she had Neupogen shot 2 weeks ago and has had intermittent burning chest pain since then. She states she also has a hiatal hernia and gets reflux and has had pain from that as well. Patient's PCP sent her up here to rule out coronary cause. She denies any pain currently. MD complaint: chest pain Onset (ago): week(s) Timing of current episode: episodic Onset: during exertion Pain location: substernal Pain radiation: none Severity: mild Quality: tightness Relieving factors: antacids and rest Exacerbating factors: exertion and eating Associated symptoms: Reports dyspnea; Deny abdominal pain, fever(s), nausea or vomiting Review of Systems Const: Denies: fever, chills, body aches or change in appetite Eyes: Denies: blurry vision or eye discomfort ENMT: Denies: throat pain or dental pain Card: Reports: chest pain Resp: Reports: shortness of breath GI: Denies: abdominal pain, nausea, vomiting or diarrhea : Denies: painful urination Musc: Denies: neck pain or back pain Skin/Breast: Denies: rash Neuro: Denies: headache Psych: Denies: depression Gust[place]/Lymph: Denies: easy bruising All/Imm: Denies: hives PFSH ED PFSH: Medical History Hyperlipidemia Hypertension Lung cancer Port-A-Cath in place Surgical History History of colonoscopy History of ear surgery stampledectomy Family History Denies family history of Anesthesia complication Bleeding disorder Social History Smoking and tobacco status: current every day smoker cigarettes Packs smoked per day: 1.5 Second hand smoke exposure: Yes Alcohol intake: never Desire information about substance/drug rehabilitation?: No Adopted: No Caregiver/support person: Yes Lives independently: Yes Household members: spouse Housing: House Marital status: Highest education level completed: High School Graduate service: No Current occupational status: retired Current occupational exposures/hazards: No Pets and animals: No History of recent travel: No Sexually active: No Current gender identity: Female Radha/Oriental Orthodox: Jew Special radha needs: No Financial difficulty paying for basics: Decline to Answer Physical Exam Const: COMMON NORMALS: no apparent distress, oriented x3 and healthy appearing HENMT: COMMON NORMALS: normocephalic and head/scalp atraumatic HEAD & SCALP: normocephalic and atraumatic Eye: COMMON NORMALS: PERRL and EOMs intact bilaterally PUPIL: Yes PERRL Neck/C-Spine: COMMON NORMALS: full ROM and supple Chest: COMMONS NORMALS: inspection of chest normal and palpation of chest normal Resp: COMMON NORMALS: normal respiratory effort, no retractions, no use of accessory muscles and clear to auscultation bilaterally AUSCULTATION: clear to auscultation bilaterally Cardio: COMMON NORMALS: regular rate, regular rhythm and no murmurs RATE: regular rate RHYTHM: regular rhythm GI: COMMON NORMALS: normal to inspection, nondistended, normoactive bowel sounds, soft to palpation, non-tender and no masses PALPATION: Yes soft Extremity: COMMON NORMALS: normal to inspection and full ROM Neuro: COMMON NORMALS: oriented x3, moves all extremities and no focal motor deficits Psych: COMMON NORMALS: mental status grossly normal, thought process normal and cooperative THOUGHT PROCESS: normal thought process Skin: COMMON NORMALS: no rashes or lesions noted and no wounds GENERAL SKIN EXAM: no rashes or lesions noted Course Vital Signs: Vital signs: Vital Signs Temperature 98 F 09/26/19 10:57 Pulse Rate 87 09/26/19 12:41 Respiratory Rate 22 H 09/26/19 12:41 Blood Pressure 159/62 09/26/19 12:41 Pulse Oximetry 93 09/26/19 12:41 MDM - Chest Pain MDM Narrative: Medical decision making narrative: Patient presents here with chest pain that is atypical in nature. She has had pain for 2 weeks. Is likely related to her Neupogen shot or her reflux. Her repeat troponin here is unchanged and d-dimer is negative. Patient is stable for discharge and is return if worsening. Lab Data: Labs: Lab Results 09/26/19 09/26/19 09/26/19 Range/Units 11:15 11:15 11:15 WBC 8.4 (4.0-10.0) 10^3/ uL RBC 3.67 L (4.1-5.3) 10^6/u L Hgb 11.8 (11.5-15.3) g/dL Hct 36.7 L (37.0-47.0) % MCV 100.0 H (81-99) fL MCH 32.2 (28.0-34.0) pg MCHC 32.2 (30.0-36.0) g/dL RDW 16.8 H (12.1-15.1) % Plt Count 193 (130-400) 10^3/c mm MPV 10.4 (7.4-10.4) fL Neut % (Auto) 77.2 % Lymph % (Auto) 14.7 % Marshall % (Auto) 6.3 % Eos % (Auto) 0.4 % Baso % (Auto) 0.4 % Neut # (Auto) 6.5 (1.8-7.7) 10^3/u L Lymph # (Auto) 1.2 (0.8-4.8) 10^3/u L Marshall # (Auto) 0.5 (0.2-0.9) 10^3/u L Eos # (Auto) 0.0 (0.0-0.8) 10^3/u L Baso # (Auto) 0.0 (0.0-0.1) 10^3/u L Nucleated RBC % (a uto) 0 % Nucleated RBCs # 0.0 /100WBC D-Dimer 0.50 (0-0.59) ug/mIFE U Sodium 142 (136-145) mmol/L Potassium 3.8 (3.5-5.1) mmol/L Chloride 101 (98-107) mmol/L Carbon Dioxide 27 (22-29) mmol/L Anion Gap 17.8 (5-19) BUN 11 (8-23) mg/dL Creatinine 0.7 (0.5-0.9) mg/dL GFR Calculation 83.5 L (90-130) mL/min Glucose 105 (65-115) mg/dL Calculated Osmolal ity 290 (285-295) mOsm/k g Calcium 10.0 (8.5-10.5) mg/dL Total Bilirubin 0.2 (0.15-1.2) mg/dL AST 15 (0-32) U/L ALT 16 (0-33) U/L Alkaline Phosphata se 66 (35-105) IU/L Troponin T Baselin e (0-10) ng/mL Troponin T 120 Min craig (0-10) ng/mL Delta Troponin T (0-10) ABS# Total Protein 6.8 (6.6-8.7) g/dL Albumin 4.4 (3.5-5.2) g/dL Globulin 2.4 (1.3-4.6) g/dL 09/26/19 09/26/19 Range/Units 11:15 12:53 WBC (4.0-10.0) 10^3/ uL RBC (4.1-5.3) 10^6/u L Hgb (11.5-15.3) g/dL Hct (37.0-47.0) % MCV (81-99) fL MCH (28.0-34.0) pg MCHC (30.0-36.0) g/dL RDW (12.1-15.1) % Plt Count (130-400) 10^3/c mm MPV (7.4-10.4) fL Neut % (Auto) % Lymph % (Auto) % Marshall % (Auto) % Eos % (Auto) % Baso % (Auto) % Neut # (Auto) (1.8-7.7) 10^3/u L Lymph # (Auto) (0.8-4.8) 10^3/u L Marshall # (Auto) (0.2-0.9) 10^3/u L Eos # (Auto) (0.0-0.8) 10^3/u L Baso # (Auto) (0.0-0.1) 10^3/u L Nucleated RBC % (a uto) % Nucleated RBCs # /100WBC D-Dimer (0-0.59) ug/mIFE U Sodium (136-145) mmol/L Potassium (3.5-5.1) mmol/L Chloride (98-107) mmol/L Carbon Dioxide (22-29) mmol/L Anion Gap (5-19) BUN (8-23) mg/dL Creatinine (0.5-0.9) mg/dL GFR Calculation (90-130) mL/min Glucose (65-115) mg/dL Calculated Osmolal ity (285-295) mOsm/k g Calcium (8.5-10.5) mg/dL Total Bilirubin (0.15-1.2) mg/dL AST (0-32) U/L ALT (0-33) U/L Alkaline Phosphata se (35-105) IU/L Troponin T Baselin e 38 H (0-10) ng/mL Troponin T 120 Min craig 38.30 H (0-10) ng/mL Delta Troponin T 0.30 (0-10) ABS# Total Protein (6.6-8.7) g/dL Albumin (3.5-5.2) g/dL Globulin (1.3-4.6) g/dL Imaging Data^: CXR: Radiologist's impression: [address] [place] [address] XRay Report Signed Patient: Moraima Harris Unit #: [id number] : 1950 Age/Sex: 68 / F ADM Date: 09/26/19 Loc: ER Room/Bed: Attending Dr: Ordering Provider/Ordering MD: Sony Carrera MD Date of Service: 09/26/19 Procedure(s): XR chest 1V portable [id number] Accession Number(s): [id number] Report Number: [id number] WS: [id number] PORTABLE CHEST HISTORY: cp COMPARISON: None available. RIGHT Port-A-Cath has been placed in good position. Tip in the distal SVC. Minimal scarring in the LEFT upper lobe. No new or suspicious nodule. No pneumonia. No pleural effusion or pneumothorax. Cardiac size: Normal. Mediastinum/Aorta: Normal mediastinum. No osseous abnormality seen. XR/XR chest 1V portable [id number] IMPRESSION: Stable chest. No acute cardiopulmonary disease. EKG Data^: EKG 1: Attestation: I personally reviewed and interpreted this EKG as follows: EKG interpretation date: 09/26/19 EKG interpretation time: 11:10 Interpretation: nsr hr [address] or t wave abnormalities EKG 2: Attestation: I personally reviewed and interpreted this EKG as follows: EKG interpretation date: 09/26/19 EKG interpretation time: 13:07 Interpretation: nsr hr [address] or t wave abnormalities qrs 86 qtc 413 unchanged from previous Discharge Plan Discharge Patient Disposition: Home, Self-Care Clinical Impression: Chest pain Qualifiers: Chest pain type: unspecified Qualified Code(s): R07.9 - Chest pain, unspecified Condition: Stable Prescriptions: No Action aspirin 81 mg tablet,delayed release (DR/EC) 81 mg PO DAILY RF: 0 Hold Instructions: Resume on 08/12/19. simvastatin 20 mg tablet 20 mg PO DAILY RF: 0 hydrochlorothiazide 12.5 mg tablet 12.5 mg PO DAILY RF: 0 hydrocodone-acetaminophen [[place]] 5-325 mg tablet 1 tab PO Q6H PRN (Reason: pain) Qty: 15 RF: 0 multivitamin Tablet 1 tab PO DAILY RF: 0 lidocaine-prilocaine 2.5-2.5 % cream 1 applic topical PRN PRN (Reason: Pain) RF: 0 Vitamin C 500 mg Tablet 500 mg PO DAILY RF: 0 Vitamin D3 2,000 unit Tablet 2,000 unit PO DAILY RF: 0 Discharge Orders: Discharge Order (Routine); Ordered 09/26/19 Ordered By: Sony Carrera Referrals: Scotty Velazquez MD [Primary Care Provider] - Discharge Diet: Advance as tolerated Discharge Activity: Resume usual activity Patient Instructions: Chest Pain (ED) Coding Level of Care Code ED Command And Control Specialist for Chg Fwd Exam Comprehensive
[2019-09-26 11:19] VITALS: O2SAT 95
[2019-09-26 11:24] LABS: Basophils % 0.4 %; Eosinophils % 0.4 %; Hematocrit 36.7 % (37.0-47.0); Hemoglobin 11.8 g/dL (11.5-15.3); Lymphocytes # 1.2 10^3/uL (0.8-4.8); Lymphocytes % 14.7 %; Mean Corpuscular HGB Conc 32.2 g/dL (30.0-36.0); Mean Corpuscular Hemoglobin 32.2 pg (28.0-34.0); Mean Platelet Volume 10.4 fL (7.4-10.4); Monocytes # 0.5 10^3/uL (0.2-0.9); Monocytes % 6.3 %; Neutrophils # 6.5 10^3/uL (1.8-7.7); Neutrophils % 77.2 %; Nucleated Red Blood Cells % 0 %; Platelet Count 193 10^3/cmm (130-400); Red Blood Count 3.67 10^6/uL (4.1-5.3); Red Cell Distribution Width 16.8 % (12.1-15.1); White Blood Count 8.4 10^3/uL (4.0-10.0)
[2019-09-26 11:39] LABS: Alanine Aminotransferase 16 U/L (0-33); Albumin Level 4.4 g/dL (3.5-5.2); Alkaline Phosphatase 66 IU/L (35-105); Anion Gap 17.8 (5-19); Aspartate Amino Transferase 15 U/L (0-32); Blood Urea Nitrogen 11 mg/dL (8-23); Carbon Dioxide 27 mmol/L (22-29); Chloride 101 mmol/L (98-107); Globulin 2.4 g/dL (1.3-4.6); Glomerular Filtration Rate 83.5 mL/min (90-130); Glucose 105 mg/dL (65-115); Osmolality Calculated 290 mOsm/kg (285-295); Potassium 3.8 mmol/L (3.5-5.1); Sodium 142 mmol/L (136-145); Total Bilirubin 0.2 mg/dL (0.15-1.2); Total Protein 6.8 g/dL (6.6-8.7)
[2019-09-26 11:40] LABS: Troponin(5th) Baseline 38 ng/mL (0-10)
[2019-09-26 12:41] VITALS: BP 159/62; PULSE 87; RESP 22; O2SAT 93
--- NOTE | 2019-09-26 13:06 | ECG_ITS ---
Measurements Intervals [place] Rate: 82 P: 49 [place]: 171 QRS: 21 QRSD: 86 T: 18 QT: 374 QTc: [address] DEPRESSION [0.025+ mV ST DEPRESSION] No previous ECG available for comparison Electronically Signed On 09-26-2019 18:31:20 CDT by Tawny Locke M.D. [email or web address]
[2019-09-26 13:38] VITALS: BP 146/105; PULSE 89; RESP 23; O2SAT 95
== END 2019-09-26 13:38 | disposition home or self-care (01) ==
PROVIDERS: Emergency Provider Emergency Medicine; PCP Internal Medicine Pulmonary Disease
DX: R07.9 Chest pain, unspecified (principal); E78.5 Hyperlipidemia, unspecified; I10 Essential (primary) hypertension; F17.210 Nicotine dependence, cigarettes, uncomplicated
CPT/HCPCS: 12345; 36415; 36591; 71045; 80053; 84484; 85025; 85378; 93005; 99283

== ENCOUNTER 2019-10-05 10:42 | Outpatient (CLI) | payer MEDICARE, OTHER, SELFPAY ==
--- NOTE | 2019-09-13 12:54 | CT_ITS ---
WS: [id number] CT CHEST TECHNIQUE: Contrast enhanced CT of the chest with coronal and sagittal reformatted images. CLINICAL INFORMATION: LUNG CANCER COMPARISON: CT June 01, 2019 and PET/CT May 09, 2019 DLP: 755.[address] scans at [facility] use at least one of these dose optimization techniques: automat ed exposure control; mA and/or kV adjustment per patient size (includes targeted exams where dose is matched to clinical indication); or iterative reconstruction. FINDINGS: Moderate chronic emphysematous changes. No acute pulmonary infiltrates. No consolidation or pleural f luid. No focal pneumonia. Previously described FDG avid lesions seen on the outside PET/CT in the lef t upper lobe along the fissure, superior segment left lower lobe, and left lower lobe posteriorly has significantly decreased in size and essentially resolved. Small amount of residual soft tissue thick ening in the area of treatment. This is most prominent involving the left upper lobe lesion along the fissure with residual parenchymal density measuring 10 mm. Tiny amount of residual parenchymal densi ty/fibrosis in the superior segment left lower lobe lesion measuring 6 mm. Left lower lobe posterior lesion essentially resolved. Findings consistent with response to therapy. No new suspicious opacitie s. No mediastinal or hilar lymphadenopathy aortic calcification. Bilateral nodular breast tissue. Recomm end annual screening mammography. Adrenal glands are normal. Small low-attenuation lesion in the spleen measuring 8 mm nonspecific but may represent \cavernous h emangioma. Tiny cyst left hepatic lobe partially visualized. Small esophageal hiatal hernia. Moderate thoracic kyphosis. 1 cm left inferior lobe thyroid nodule.
[2019-09-13] MEDS: iohexol 300 mg/mL 100 mL Btl IV (13:10)
--- NOTE | 2019-10-05 11:00 | US_ITS ---
WS: [id number] THYROID ULTRASOUND HISTORY: F/U ON RECENT CHEST CT FINDINGS COMPARISON: 09/13/2019 Right lobe: 3.4 cm x 1.6 cm x 1.9 cm. Volume: 5.1 cm3. Normal size thyroid with mild heterogeneity. There are a few scattered benign-appearing probable occu lt nodules. Largest measures 3 mm. Left lobe: 4.0 cm x 1.5 cm x 1.7 cm. Volume: 5.3 cm3. Coarsened echotexture throughout the gland. Mildly spongiform nodule in the inferior LEFT thyroid glynn sures 1.4 x 0.9 x 1.3 cm. Partial peripheral halo. Mild increased vascularity. Isthmus: 0.2 cm. US/US thyroid 76040 IMPRESSION: 1. Spongiform inferior LEFT thyroid nodule with a maximum diameter of 1.4 cm. Recommend yearly ultrasound follow-up evaluation. If this increases in size thy roid biopsy can be obtained. 2. Otherwise no suspicious or concerning nodules.
== END 2019-10-05 10:43 | disposition home or self-care (01) ==
LOC: RADWPI 10:43
PROVIDERS: PCP Internal Medicine Pulmonary Disease; Visit Provider Internal Medicine Hematology & Oncology
DX: R93.49 Abnormal radiologic findings on diagnostic imaging of other urinary organs (principal); E04.1 Nontoxic single thyroid nodule
CPT/HCPCS: 71260; 76536

== ENCOUNTER 2019-10-18 06:45 | Outpatient (RCR) | payer MEDICARE, OTHER, SELFPAY ==
[2019-10-11 20:36] LABS: Basophils % 0.4 %; Eosinophils # 0.1 10^3/uL (0.0-0.8); Eosinophils % 1.1 %; Hematocrit 39.7 % (37.0-47.0); Hemoglobin 12.8 g/dL (11.5-15.3); Lymphocytes # 1.3 10^3/uL (0.8-4.8); Mean Corpuscular HGB Conc 32.2 g/dL (30.0-36.0); Mean Corpuscular Hemoglobin 33.8 pg (28.0-34.0); Mean Corpuscular Volume 104.7 fL (81-99); Monocytes # 0.6 10^3/uL (0.2-0.9); Monocytes % 8.5 %; Neutrophils # 5.3 10^3/uL (1.8-7.7); Neutrophils % 71.3 %; Nucleated Red Blood Cells % 0 %; Platelet Count 334 10^3/cmm (130-400); Red Blood Count 3.79 10^6/uL (4.1-5.3); Red Cell Distribution Width 17.8 % (12.1-15.1); White Blood Count 7.4 10^3/uL (4.0-10.0)
[2019-10-11 21:49] LABS: Alanine Aminotransferase 17 U/L (0-33); Albumin Level 4.4 g/dL (3.5-5.2); Alkaline Phosphatase 72 IU/L (35-105); Anion Gap 24.9 (5-19); Blood Urea Nitrogen 9 mg/dL (8-23); Calcium 9.8 mg/dL (8.5-10.5); Carbon Dioxide 22 mmol/L (22-29); Chloride 99 mmol/L (98-107); Globulin 2.8 g/dL (1.3-4.6); Glomerular Filtration Rate 99.7 mL/min (90-130); Glucose 115 mg/dL (65-115); Osmolality Calculated 289 mOsm/kg (285-295); Potassium 4.9 mmol/L (3.5-5.1); Sodium 141 mmol/L (136-145); Total Bilirubin 0.2 mg/dL (0.15-1.2); Total Protein 7.2 g/dL (6.6-8.7)
[2019-10-11 22:12] LABS: Aspartate Amino Transferase 23 U/L (0-32)
--- NOTE | 2019-10-12 13:14 | ONC FU_ITS ---
Dr. Zhou follow up note Patient: Moraima Harris Unit #: [id number]: 1950 Dicatated By: Barbara Zhou M.D.Date of Visit:Oct 12, 2019 Onc Med Follow-up/Prog Note History of Present Illness: Mrs. Harris is a 68-year-old female with history of COPD, chronic smoking and exercise hypoxemia. She recently underwent CT scan of chest which showed 2 separate pulmonary nodules e.g. 1 in the left upper lobe and one in the left lower lobe. Subsequently she underwent CT PET scan on 05/10/2019 which confirmed multiple left lung nodules with SUV of 9.2 the largest of disease in the posterior aspect of left upper lobe measuring up to 0.8 x 1.3 cm. As per discussion with Dr. Orourke radiation oncologist, there are 3 small separate nodules in the left upper lobe and one in the left lower lobe and because of location, SBRT can be performed. CT PET scan showed no mediastinal or hilar lymphadenopathy or any distance metastatic disease. Mrs Harris underwent CT-guided biopsy of left upper lobe nodule on 06/01/2019. 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 Because of underlying lung condition, patient was not a candidate for surgery so she was referred to radiation/medical oncology for evaluation and management.Cancer type ID was done on 06/01/2019 showed squamous cell carcinoma lung as a primary within 77% probability. Mrs Harris denies any history of hemoptysis or hematemesis. She denies any history of bony pains; headaches; blurred vision or double vision. She has history of brain tumor for which she underwent yearly MRI scan for 5-6 years without any progression as per patient at that time she was told it could be a benign lesion or she may have born with it. 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 Mrs Harris denies any weight loss. She denies any jaundice or any history of sore throat or dysphagia. She denies any history of vaginal bleeding. Mrs Harris is a chronic smoker and smokes about pack a day-currently. Status post SB RT to left upper lobe lung lesion from 07/13/2019 through 07/22/2019 Status post SB RT to left lower lobe of lung nodule from 07/25/2019 and completed on 08/02/2019 tolerated SB RT to left lung nodules well. After completion of the SBRT, Mrs Harris was offered further treatment with chemotherapy consisting of Carboplatin/gemcitabine. The carboplatin is day 1 and gemcitabine is day 1 and 8. She began her first cycle on August 16, 2019. Follow-up CT scan of chest done on 09/14/2019 showed previously described FDG avid nodules in the left upper lobe and left lower lobe have essentially resolved with a small amount of residual parenchymal tissue. No mediastinal or hilar lymphadenopathy. Small esophageal hiatal hernia. Low-attenuation lesion in the spleen measuring 8mm nonspecific but may represent benign cavernous angioma. CT scan of the neck done on 10/05/2019 showed spongiform inferior left thyroid nodule with a maximum diameter 1.4 cm. Recommended yearly ultrasound and if change in size, we'll consider biopsy otherwise no suspicious or concerning nodules seen in thyroid. Came for follow-up, denies any specific complaints except episode of postnasal drip and left ear ache, which has improved. And occasionally retrosternal discomfort/pain especially with eating or with indigestion. No palpitation or shortness of breath no left arm pain or heaviness. No fever or chills, no nausea or vomiting no diarrhea constipation Medications: Aspirin 81 mg (of 81 mg) Tablet Oral daily, Cholecalciferol Tablet Oral, Diclofenac Sodium 75 mg (of 75 mg) Tablet, enteric coated Oral daily, hydroCHLOROthiazide 12.5 mg (of 12.5 mg) Tablet Oral daily, Simvastatin 20 mg (of 20 mg) Tablet Oral daily, Vitamin C Capsule Oral Allergies: No Known Allergies. Review of Systems: Constitutional - Appetite is good and weight is stable. No fever, chills, hot flashes, or night sweats. Energy level is fair, ENMT - No sinus congestion/drainage. No mouth sores. No sore throat or difficulty swallowing, Hematologic/Lymphatic - No abnormal bruising or bleeding, Respiratory - No shortness of breath. No cough. No pleuritic pain or hemoptysis, Cardiovascular - No angina pain. No palpitations, Gastrointestinal - No nausea or vomiting. No heartburn or acid reflux. No diarrhea or constipation. No blood in the stool or black stools, Genitourinary (F) - No dysuria or hematuria. No urinary frequency. No urgency or incontinence, Musculoskeletal - No joint or bone pain, Neurologic - No headache or dizziness. No numbness/paresthesias or other focal neurologic symptoms, Psychiatric - No anxiety or depression. No insomnia. Vital Signs: Performed on Oct 12, 2019 12:37 Height - 61.00 in Weight - 158.2 lbs (LOW) BSA - 1.71 sq.m BMI - 29.89 Temperature - 97.6 F (LOW) Pulse - 95 /min Respiration - 19 /min BP - 143/73 mm(hg) (HIGH) O2 Sat - 95 % (LOW) Pain - 0 Performance Status: 0 - Fully active, able to carry on all predisease activities without restrictions. (ECOG) Physical Examination: Respiratory - Lungs are clear, Cardiovascular - Regular rate and rhythm, Abdomen - Non-tender, distended, Extremities - no edema. Lab/Imaging: Test performed on Oct 11, 2019 13:30 Sodium 141 mmol/L Potassium 4.9 mmol/L Chloride 99 mmol/L CO2 22 mmol/L Anion Gap 24.9 BUN 9 mg/dL Creatinine 0.6 mg/dL Cr Clearance (Est) 102.2900 mL/min eGFR 99.7 mL/min Glucose 115 mg/dL Calcium 9.8 mg/dL Protein, Total 7.2 g/dL Albumin 4.4 g/dL Globulin 2.8 g/dL Bilirubin, Total 0.2 mg/dL ALT (SGPT) 17 U/L AST (SGOT) 23 U/L Alkaline Phosphatase 72 IU/L WBC 7.4 10 3/uL RBC 3.79 10 6/uL HGB 12.8 g/dL HCT 39.7 % MCV 104.7 fL MCH 33.8 pg MCHC 32.2 g/dL RDW 17.8 % Platelet Count 334 10 3/cmm MPV 11.0 fL Neutrophils 5.3 10 3/uL Lymphocytes 1.3 10 3/uL Monocytes 0.6 10 3/uL Eosinophils 0.1 10 3/uL Basophils 0.0 10 3/uL Neutrophil % 71.3 % Lymphocyte % 18.0 % Monocyte % 8.5 % Eosinophil % 1.1 % Basophils % 0.4 % Test performed on Sep 19, 2019 08:57 Manual Bands % 18.0 % Manual Lymphs % 20 % Manual Monos % 12.0 % Metamyelocytes % 6.0 % Myelocytes % 2.0 % CBC Slide Review Slide Review Perform Manual Bands Abs 1.3 10 3/cmm Manual Monocytes Abs 0.9 10 3/cmm Test performed on Jul 13, 2019 14:34 Manual Eosinophils 0.5 % Manual Basophils 0.4 % NRBCs 0.0 /100 WBC Impression: Moderately differentiated squamous cell carcinoma per CT-guided biopsy of left upper lobe lung done on 06/01/2019 Immunohistochemistry showed positive for p40 and negative for TTF-1. CT PET scan done on 05/10/2019 showed multiple hypermetabolic nodules in left lung e.g. 3 closely related nodules in upper left lobe largest being 0.8 x 1.3 cm and one in the left lower lobe. Cancer type ID confirmed lung being primary at 77% probability Clinical stage T4 ( lesions in ipsilateral separate lobes) NX M0 stage IIIa COPD, exercise hypoxemia, chronic smoking Mrs Steven tolerated SB RT to left upper lobe lung nodules as well as left lower lobe lung nodule well. She has been advised to pursue further treatment per Dr Zhou. Earlier patient required cancer type ID to confirm the primary as with clinical presentation metastatic disease was one of the possibility but cancer type ID confirmed pulmonary being primary with 77% probability, we will also consider PDL 1 status and molecular profiling of the tumor Dr Zhou discussed the role of adjuvant chemotherapy as patient was not a candidate for surgery but underwent SB RT. Dr Zhou recommended systemic chemotherapy with carboplatin AUC 5 on day 1 and gemcitabine 1,000mg per meter square day 1 and day 8 and repeat every 21 days ???4 cycles. She began her first cycle of carboplatin gemcitabine on August 16, 2019. Plan: Discussed with patient regarding her labs white blood count 7.4 hemoglobin 12.6 crit 39.7 platelets 334,000 CMP within normal limits and ultrasound of thyroid findings which showed benign findings with questionable spongiform lesion in the left lobe and follow-up sonogram in a year recommended. Clinically, patient is doing well, denies any new signs symptom, tolerating adjuvant therapy with carboplatin/gemcitabine well. We'll proceed with next cycle #3 with carboplatin/gemcitabine and then she will return to clinic in 1 week with CBC and CMP if reasonable, for day 8 gemcitabine. Also discuss about her thyroid sonogram which showed 1.4 cm spongiform lesion in the left lobe, follow-up thyroid sonogram recommended in one year. As far as retrosternal pain/discomfort is concern probably due to GERD or hiatal hernia, patient was advised to avoid spicy food and if pain persist or progress, we may consider cardiac evaluation. Signed By: Barbara Zhou M.D. <<Signature on File>>
[2019-10-12] MEDS: sodium chloride 0.9% 250 ML 75 ML IV (13:46)
[2019-10-17 19:34] LABS: Basophils % 0.3 %; Eosinophils # 0.1 10^3/uL (0.0-0.8); Eosinophils % 0.8 %; Hematocrit 39.9 % (37.0-47.0); Hemoglobin 12.8 g/dL (11.5-15.3); Lymphocytes % 16.3 %; Mean Corpuscular HGB Conc 32.1 g/dL (30.0-36.0); Mean Corpuscular Hemoglobin 33.2 pg (28.0-34.0); Mean Corpuscular Volume 103.4 fL (81-99); Mean Platelet Volume 11.2 fL (7.4-10.4); Monocytes % 0.7 %; Neutrophils # 4.8 10^3/uL (1.8-7.7); Neutrophils % 81.7 %; Nucleated Red Blood Cells % 0 %; Platelet Count 252 10^3/cmm (130-400); Red Blood Count 3.86 10^6/uL (4.1-5.3); Red Cell Distribution Width 17.2 % (12.1-15.1); White Blood Count 5.9 10^3/uL (4.0-10.0)
[2019-10-17 20:46] LABS: Alanine Aminotransferase 63 U/L (0-33); Albumin Level 4.5 g/dL (3.5-5.2); Alkaline Phosphatase 66 IU/L (35-105); Anion Gap 17.7 (5-19); Aspartate Amino Transferase 51 U/L (0-32); Blood Urea Nitrogen 9 mg/dL (8-23); Calcium 10.3 mg/dL (8.5-10.5); Carbon Dioxide 27 mmol/L (22-29); Chloride 98 mmol/L (98-107); Globulin 2.4 g/dL (1.3-4.6); Glomerular Filtration Rate 123.1 mL/min (90-130); Glucose 53 mg/dL (65-115); Osmolality Calculated 281 mOsm/kg (285-295); Potassium 3.7 mmol/L (3.5-5.1); Sodium 139 mmol/L (136-145); Total Bilirubin 0.3 mg/dL (0.15-1.2); Total Protein 6.9 g/dL (6.6-8.7)
[2019-10-18] MEDS: sodium chloride 0.9% 250 ML 75 ML IV (13:15)
--- NOTE | 2019-10-18 13:48 | ONC FU_ITS ---
Dr. Zhou follow up note Patient: Moraima Harris Unit #: [id number]: 1950 Dicatated By: Barbara Zhou M.D.Date of Visit:Oct 18, 2019 Onc Med Follow-up/Prog Note History of Present Illness: Mrs. Harris is a 68-year-old female with history of COPD, chronic smoking and exercise hypoxemia. She recently underwent CT scan of chest which showed 2 separate pulmonary nodules e.g. 1 in the left upper lobe and one in the left lower lobe. Subsequently she underwent CT PET scan on 05/10/2019 which confirmed multiple left lung nodules with SUV of 9.2 the largest of disease in the posterior aspect of left upper lobe measuring up to 0.8 x 1.3 cm. As per discussion with Dr. Orourke radiation oncologist, there are 3 small separate nodules in the left upper lobe and one in the left lower lobe and because of location, SBRT can be performed. CT PET scan showed no mediastinal or hilar lymphadenopathy or any distance metastatic disease. Mrs Harris underwent CT-guided biopsy of left upper lobe nodule on 06/01/2019. 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 Because of underlying lung condition, patient was not a candidate for surgery so she was referred to radiation/medical oncology for evaluation and management.Cancer type ID was done on 06/01/2019 showed squamous cell carcinoma lung as a primary within 77% probability. Mrs Harris denies any history of hemoptysis or hematemesis. She denies any history of bony pains; headaches; blurred vision or double vision. She has history of brain tumor for which she underwent yearly MRI scan for 5-6 years without any progression as per patient at that time she was told it could be a benign lesion or she may have born with it. She also has a skin lesion in left subaxillary area for which she was supposed to see barratte operator but she canceled her appointment once she found out about lung cancer. Mrs Harris denies any weight loss. She denies any jaundice or any history of sore throat or dysphagia. She denies any history of vaginal bleeding. Mrs Harris is a chronic smoker and smokes about pack a day-currently. Status post SB RT to left upper lobe lung lesion from 07/13/2019 through 07/22/2019 Status post SB RT to left lower lobe of lung nodule from 07/25/2019 and completed on 08/02/2019 tolerated SB RT to left lung nodules well. After completion of the SBRT, Mrs Harris was offered further treatment with chemotherapy consisting of Carboplatin/gemcitabine. The carboplatin is day 1 and gemcitabine is day 1 and 8. She began her first cycle on August 16, 2019. Follow-up CT scan of chest done on 09/14/2019 showed previously described FDG avid nodules in the left upper lobe and left lower lobe have essentially resolved with a small amount of residual parenchymal tissue. No mediastinal or hilar lymphadenopathy. Small esophageal hiatal hernia. Low-attenuation lesion in the spleen measuring 8mm nonspecific but may represent benign cavernous angioma. CT scan of the neck done on 10/05/2019 showed spongiform inferior left thyroid nodule with a maximum diameter 1.4 cm. Recommended yearly ultrasound and if change in size, we'll consider biopsy otherwise no suspicious or concerning nodules seen in thyroid. Came for follow-up, denies any specific complaints, no fever or chills, no nausea or vomiting, no diarrhea constipation, no chest pain, no palpitation or shortness of breath. Tolerating adjuvant therapy with carboplatin/gemcitabine well Medications: Aspirin 81 mg (of 81 mg) Tablet Oral daily, Cholecalciferol Tablet Oral, Diclofenac Sodium 75 mg (of 75 mg) Tablet, enteric coated Oral daily, hydroCHLOROthiazide 12.5 mg (of 12.5 mg) Tablet Oral daily, Simvastatin 20 mg (of 20 mg) Tablet Oral daily, Vitamin C Capsule Oral Allergies: No Known Allergies. Review of Systems: Constitutional - Appetite is good and weight is stable. No fever, chills, hot flashes, or night sweats. Energy level is fair. Pt reports fatigue in the afternoons, ENMT - No sinus congestion/drainage. No mouth sores. No sore throat or difficulty swallowing, Hematologic/Lymphatic - No abnormal bruising or bleeding, Respiratory - No shortness of breath. No cough. No pleuritic pain or hemoptysis, Cardiovascular - No angina pain. No palpitations, Gastrointestinal - No nausea or vomiting. No heartburn or acid reflux. No diarrhea or constipation. No blood in the stool or black stools, Genitourinary (F) - No dysuria or hematuria. No urinary frequency. No urgency or incontinence, Musculoskeletal - No joint or bone pain, Neurologic - No headache or dizziness. No numbness/paresthesias or other focal neurologic symptoms, Psychiatric - No anxiety or depression. No insomnia. Vital Signs: Performed on Oct 18, 2019 12:52 Height - 61.00 in Weight - 155.4 lbs (LOW) BSA - 1.70 sq.m BMI - 29.36 Temperature - 98.5 F Pulse - 106 /min (HIGH) Respiration - 16 /min BP - 159/65 mm(hg) (HIGH) O2 Sat - 97 % Pain - 0 Performance Status: 0 - Fully active, able to carry on all predisease activities without restrictions. (ECOG) Physical Examination: ENMT - no mouth sores, Respiratory - Lungs are clear, Cardiovascular - Regular rate and rhythm of heart, Abdomen - Non-tender, non-distended, Good bowel sounds. No guarding or rebound tenderness. No pulsatile masses, Extremities - no edema or rash. Lab/Imaging: Test performed on Oct 11, 2019 13:30 Sodium 141 mmol/L Potassium 4.9 mmol/L Chloride 99 mmol/L CO2 22 mmol/L Anion Gap 24.9 BUN 9 mg/dL Creatinine 0.6 mg/dL Cr Clearance (Est) 102.2900 mL/min eGFR 99.7 mL/min Glucose 115 mg/dL Calcium 9.8 mg/dL Protein, Total 7.2 g/dL Albumin 4.4 g/dL Globulin 2.8 g/dL Bilirubin, Total 0.2 mg/dL ALT (SGPT) 17 U/L AST (SGOT) 23 U/L Alkaline Phosphatase 72 IU/L WBC 7.4 10 3/uL RBC 3.79 10 6/uL HGB 12.8 g/dL HCT 39.7 % MCV 104.7 fL MCH 33.8 pg MCHC 32.2 g/dL RDW 17.8 % Platelet Count 334 10 3/cmm MPV 11.0 fL Neutrophils 5.3 10 3/uL Lymphocytes 1.3 10 3/uL Monocytes 0.6 10 3/uL Eosinophils 0.1 10 3/uL Basophils 0.0 10 3/uL Neutrophil % 71.3 % Lymphocyte % 18.0 % Monocyte % 8.5 % Eosinophil % 1.1 % Basophils % 0.4 % Test performed on Sep 19, 2019 08:57 Manual Bands % 18.0 % Manual Lymphs % 20 % Manual Monos % 12.0 % Metamyelocytes % 6.0 % Myelocytes % 2.0 % CBC Slide Review Slide Review Perform Manual Bands Abs 1.3 10 3/cmm Manual Monocytes Abs 0.9 10 3/cmm Test performed on Jul 13, 2019 14:34 Manual Eosinophils 0.5 % Manual Basophils 0.4 % NRBCs 0.0 /100 WBC Impression: Moderately differentiated squamous cell carcinoma per CT-guided biopsy of left upper lobe lung done on 06/01/2019 Immunohistochemistry showed positive for p40 and negative for TTF-1. CT PET scan done on 05/10/2019 showed multiple hypermetabolic nodules in left lung e.g. 3 closely related nodules in upper left lobe largest being 0.8 x 1.3 cm and one in the left lower lobe. Cancer type ID confirmed lung being primary at 77% probability Clinical stage T4 ( lesions in ipsilateral separate lobes) NX M0 stage IIIa COPD, exercise hypoxemia, chronic smoking Mrs Steven tolerated SB RT to left upper lobe lung nodules as well as left lower lobe lung nodule well. She has been advised to pursue further treatment per Dr Zhou. Earlier patient required cancer type ID to confirm the primary as with clinical presentation metastatic disease was one of the possibility but cancer type ID confirmed pulmonary being primary with 77% probability, we will also consider PDL 1 status and molecular profiling of the tumor Dr Zhou discussed the role of adjuvant chemotherapy as patient was not a candidate for surgery but underwent SB RT. Dr Zhou recommended systemic chemotherapy with carboplatin AUC 5 on day 1 and gemcitabine 1,000mg per meter square day 1 and day 8 and repeat every 21 days ???4 cycles. She began her first cycle of carboplatin gemcitabine on August 16, 2019. Plan: Discussed with patient regarding her labs white blood count 5.9 hemoglobin 12.8 crit 39.9 platelets 252,000, CMP within normal limit except ALT 63/AST 51 compared to on 10/11/2019 with a normal bilirubin and alkaline phosphatase Clinically, patient is doing well, tolerating adjuvant therapy with carboplatin/gemcitabine well but with expected side effects. We'll proceed with next weekly dose of gemcitabine today and then she will return to clinic in 2 weeks with CBC CMP if reasonable per cycle #4/final with carboplatin/gemcitabine. As far as abnormal transaminases is concern, etiology is unclear could be lab error, with a normal bilirubin and alkaline phosphatase, will continue to monitor and if no improvement, we'll consider right upper quadrant sonogram. Signed By: Barbara Zhou M.D. <<Signature on File>>
== END 2019-10-27 23:59 | disposition home or self-care (01) ==
LOC: ONCMED 06:45
PROVIDERS: PCP Internal Medicine Pulmonary Disease; Visit Provider Internal Medicine Hematology & Oncology
DX: Z51.11 Encounter for antineoplastic chemotherapy (principal); C34.12 Malignant neoplasm of upper lobe, left bronchus or lung; I65.23 Occlusion and stenosis of bilateral carotid arteries; J44.9 Chronic obstructive pulmonary disease, unspecified; I10 Essential (primary) hypertension; G47.33 Obstructive sleep apnea (adult) (pediatric); Z79.899 Other long term (current) drug therapy
CPT/HCPCS: 36415; 80053; 85025; 96367; 96413; 96417; 99214; J1100; J1453; J2405; J7050; J9045; J9201

== ENCOUNTER 2019-11-10 12:52 | Outpatient (CLI) | payer MEDICARE, OTHER, SELFPAY ==
--- NOTE | 2019-11-10 13:05 | MM_ITS ---
WS: [id number] SCREENING DIGITAL MAMMOGRAM WITH CAD HISTORY: SCREEN COMPARISON: None available. Bilateral CC and MLO views submitted. Computer aided detection analyzed. Breast composition: There are scattered areas of fibroglandular density. Numerous, mildly pleomorphic calcifications along a linear, ductal distribution in the upper outer qu adrant of the RIGHT breast near the 9-10 o'clock axis. There is increased soft tissue along the same duct distribution. Calcifications are irregular shaped and highly suspicious for neoplasm. There is a rounded soft tissue mass containing calcification in the anterior RIGHT breast also. Port-A-Cath obs cures the posterior RIGHT breast on the MLO projection. Additional coarse calcifications in the anter ior LEFT breast medially from a fibroadenoma. There are additional masses within the anterior LEFT br east. There are scattered calcifications within each of these masses. Further evaluation is necessary . The most concerning mass is a slightly lobulated mass at 9:00 measuring 11 mm. LEFT breast: Spot compression views (CC and MLO). True ML. Ultrasound to follow if abnormality persis ts. RIGHT BREAST: Magnification views of suspicious calcification CC and MLO. True ML. Ultrasound should also be obtained to further evaluate the solid component. MM/[id number] IMPRESSION: BI-RADS: 0-Incomplete: Need additional imaging evaluation FOLLOW UP: Need Additional Imaging
== END 2019-11-10 12:53 | disposition home or self-care (01) ==
LOC: RADSHAW 12:57
PROVIDERS: PCP Internal Medicine Pulmonary Disease; Visit Provider Internal Medicine Hematology & Oncology
DX: Z12.31 Encounter for screening mammogram for malignant neoplasm of breast (principal)
CPT/HCPCS: 77067

== ENCOUNTER 2019-11-22 06:50 | Outpatient (RCR) | payer MEDICARE, OTHER, SELFPAY ==
[2019-10-31 13:16] LABS: Eosinophils % 0.7 %; Hematocrit 34.1 % (37.0-47.0); Hemoglobin 10.7 g/dL (11.5-15.3); Lymphocytes # 0.8 10^3/uL (0.8-4.8); Lymphocytes % 28.5 %; Mean Corpuscular HGB Conc 31.4 g/dL (30.0-36.0); Mean Corpuscular Hemoglobin 33.1 pg (28.0-34.0); Mean Corpuscular Volume 105.6 fL (81-99); Mean Platelet Volume 12.1 fL (7.4-10.4); Monocytes # 0.3 10^3/uL (0.2-0.9); Monocytes % 11.7 %; Neutrophils # 1.7 10^3/uL (1.8-7.7); Neutrophils % 58.8 %; Nucleated Red Blood Cells % 0 %; Platelet Count 102 10^3/cmm (130-400); Red Blood Count 3.23 10^6/uL (4.1-5.3); Red Cell Distribution Width 17.6 % (12.1-15.1); White Blood Count 2.9 10^3/uL (4.0-10.0)
[2019-10-31 13:17] LABS: Alanine Aminotransferase 35 U/L (0-33); Albumin Level 4.5 g/dL (3.5-5.2); Alkaline Phosphatase 71 IU/L (35-105); Anion Gap 17.7 (5-19); Aspartate Amino Transferase 25 U/L (0-32); Blood Urea Nitrogen 8 mg/dL (8-23); Calcium 9.6 mg/dL (8.5-10.5); Carbon Dioxide 28 mmol/L (22-29); Chloride 99 mmol/L (98-107); Glomerular Filtration Rate 99.7 mL/min (90-130); Glucose 82 mg/dL (65-115); Osmolality Calculated 287 mOsm/kg (285-295); Potassium 3.7 mmol/L (3.5-5.1); Sodium 141 mmol/L (136-145); Total Bilirubin 0.2 mg/dL (0.15-1.2); Total Protein 7.5 g/dL (6.6-8.7)
--- NOTE | 2019-11-01 11:19 | ONC FU_ITS ---
Dr. Zhou follow up note Patient: Moraima Harris Unit #: [id number]: [id number] Dicatated By: Barbara Zhou M.D.Date of Visit:November 01, 2019 Onc Med Follow-up/Prog Note History of Present Illness: Mrs. Harris is a 68-year-old female with history of COPD, chronic smoking and exercise hypoxemia. She recently underwent CT scan of chest which showed 2 separate pulmonary nodules e.g. 1 in the left upper lobe and one in the left lower lobe. Subsequently she underwent CT PET scan on 05/10/2019 which confirmed multiple left lung nodules with SUV of 9.2 the largest of disease in the posterior aspect of left upper lobe measuring up to 0.8 x 1.3 cm. As per discussion with Dr. Orourke radiation oncologist, there are 3 small separate nodules in the left upper lobe and one in the left lower lobe and because of location, SBRT can be performed. CT PET scan showed no mediastinal or hilar lymphadenopathy or any distance metastatic disease. Mrs Harris underwent CT-guided biopsy of left upper lobe nodule on 06/01/2019. 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 Because of underlying lung condition, patient was not a candidate for surgery so she was referred to radiation/medical oncology for evaluation and management.Cancer type ID was done on 06/01/2019 showed squamous cell carcinoma lung as a primary within 77% probability. Mrs Harris denies any history of hemoptysis or hematemesis. She denies any history of bony pains; headaches; blurred vision or double vision. She has history of brain tumor for which she underwent yearly MRI scan for 5-6 years without any progression as per patient at that time she was told it could be a benign lesion or she may have born with it. She also has a skin lesion in left subaxillary area for which she was supposed to see office cleaner but she canceled her appointment once she found out about lung cancer. Mrs Harris denies any weight loss. She denies any jaundice or any history of sore throat or dysphagia. She denies any history of vaginal bleeding. Mrs Harris is a chronic smoker and smokes about pack a day-currently. Status post SB RT to left upper lobe lung lesion from 07/13/2019 through 07/22/2019 Status post SB RT to left lower lobe of lung nodule from 07/25/2019 and completed on 08/02/2019 tolerated SB RT to left lung nodules well. After completion of the SBRT, Mrs Harris was offered further treatment with chemotherapy consisting of Carboplatin/gemcitabine. The carboplatin is day 1 and gemcitabine is day 1 and 8. She began her first cycle on August 16, 2019. Follow-up CT scan of chest done on 09/14/2019 showed previously described FDG avid nodules in the left upper lobe and left lower lobe have essentially resolved with a small amount of residual parenchymal tissue. No mediastinal or hilar lymphadenopathy. Small esophageal hiatal hernia. Low-attenuation lesion in the spleen measuring 8mm nonspecific but may represent benign cavernous angioma. CT scan of the neck done on 10/05/2019 showed spongiform inferior left thyroid nodule with a maximum diameter 1.4 cm. Recommended yearly ultrasound and if change in size, we'll consider biopsy otherwise no suspicious or concerning nodules seen in thyroid. Came for follow-up, denies any specific complaint except generalized weakness and fatigue, patient says she is recovering flu- like symptom since last week. No fever or chills him a no cough no sore throat, no nausea or vomiting, no diarrhea constipation. Medications: Aspirin 81 mg (of 81 mg) Tablet Oral daily, Cholecalciferol Tablet Oral, Diclofenac Sodium 75 mg (of 75 mg) Tablet, enteric coated Oral daily, hydroCHLOROthiazide 12.5 mg (of 12.5 mg) Tablet Oral daily, Simvastatin 20 mg (of 20 mg) Tablet Oral daily, Vitamin C Capsule Oral Allergies: No Known Allergies. Review of Systems: Review of Systems is not available for this patient. Vital Signs: Performed on November 01, 2019 08:11 Height - 61.00 in Weight - 157.4 lbs (HIGH) BSA - 1.71 sq.m BMI - 29.74 Temperature - 97.8 F (LOW) Pulse - 106 /min (HIGH) Respiration - 18 /min BP - 125/67 mm(hg) O2 Sat - 94 % (LOW) Pain - 0 Performance Status: 1 - No physically strenuous activity, but ambulatory and able to carry out light or sedentary work (e.g. office work, light house work). (ECOG) Physical Examination: ENMT - no mouth sores or thrush, Respiratory - Lungs are clear, Cardiovascular - Regular rate and rhythm of heart, Abdomen - soft, bowel sounds present, Extremities - no visible edema. Lab/Imaging: Test performed on October 28, 2019 10:45 Glucose 89 mg/dL BUN 11 mg/dL Creatinine 0.6 mg/dL Cr Clearance (Est) 102.29 mL/min Sodium 144 mmol/L Potassium 3.7 mmol/L Chloride 101 mmol/L CO2 30 mmol/L Calcium 9.5 mg/dL Protein, Total 7.0 g/dL Albumin 4.3 g/dL Bilirubin, Total 0.3 mg/dL Alkaline Phosphatase 84 IU/L AST (SGOT) 30 IU/L ALT (SGPT) 43 IU/L WBC 3.7 10^9/L RBC 3.20 10^12/L HGB 10.5 g/dL HCT 31.6 % MCV 98.7 fl MCH 32.9 pg MCHC 33 g/dL RDW 15.6 % Platelet Count 18 10^9/L MPV 8.5 fL Manual Lymphocytes 31.4 % Manual Monocytes 6.0 % Manual Eosinophils 0.4 % Manual Basophils 0.8 % Test performed on Oct 17, 2019 11:18 Anion Gap 17.7 eGFR 123.1 mL/min Globulin 2.4 g/dL Neutrophils 4.8 10 3/uL Lymphocytes 1.0 10 3/uL Monocytes 0.0 10 3/uL Eosinophils 0.1 10 3/uL Basophils 0.0 10 3/uL Neutrophil % 81.7 % Lymphocyte % 16.3 % Monocyte % 0.7 % Eosinophil % 0.8 % Basophils % 0.3 % Test performed on Sep 19, 2019 08:57 Manual Bands % 18.0 % Metamyelocytes % 6.0 % Myelocytes % 2.0 % CBC Slide Review Slide Review Perform Manual Bands Abs 1.3 10 3/cmm Manual Monocytes Abs 0.9 10 3/cmm Test performed on Jul 13, 2019 14:34 NRBCs 0.0 /100 WBC Impression: Moderately differentiated squamous cell carcinoma per CT-guided biopsy of left upper lobe lung done on 06/01/2019 Immunohistochemistry showed positive for p40 and negative for TTF-1. CT PET scan done on 05/10/2019 showed multiple hypermetabolic nodules in left lung e.g. 3 closely related nodules in upper left lobe largest being 0.8 x 1.3 cm and one in the left lower lobe. Cancer type ID confirmed lung being primary at 77% probability Clinical stage T4 ( lesions in ipsilateral separate lobes) NX M0 stage IIIa COPD, exercise hypoxemia, chronic smoking Mrs Byse tolerated SB RT to left upper lobe lung nodules as well as left lower lobe lung nodule well. She has been advised to pursue further treatment per Dr Zhou. Earlier patient required cancer type ID to confirm the primary as with clinical presentation metastatic disease was one of the possibility but cancer type ID confirmed pulmonary being primary with 77% probability, we will also consider PDL 1 status and molecular profiling of the tumor discussed the role of adjuvant chemotherapy as patient was not a candidate for surgery but underwent SB RT. recommended systemic chemotherapy with carboplatin AUC 5 on day 1 and gemcitabine 1,000mg per meter square day 1 and day 8 and repeat every 21 days ???4 cycles. She began her first cycle of carboplatin gemcitabine on August 16, 2019. Plan: Discussed with patient regarding her labs white blood count 2.9 hemoglobin 10.7 hematocrit 34.1 platelets 102,000 CMP within normal limits Clinically, patient is doing well, tolerating adjuvant chemotherapy with carbo/gemcitabine well but with expected side effect e.g. progressive pancytopenia . She was scheduled for her final cycle of chemotherapy with carboplatin/gemcitabine today but today's CBC shows further drop in her total white blood cell but improvement in platelet counts and stable mild anemia and in addition to progressive leukopenia she is also recovering from flulike symptoms, we'll hold her chemotherapy today and repeat her CBC on 11/08/2019 and improvement then will consider chemotherapy on 11/09/2019. Patient was advised in case, there is a worsening of symptoms that she did go to hospital for evaluation. Signed By: Barbara Zhou M.D. <<Signature on File>>
[2019-11-08 10:48] LABS: Basophils % 0.5 %; Eosinophils % 0.8 %; Hematocrit 35.4 % (37.0-47.0); Hemoglobin 11.4 g/dL (11.5-15.3); Lymphocytes # 1.2 10^3/uL (0.8-4.8); Lymphocytes % 30.2 %; Mean Corpuscular HGB Conc 32.2 g/dL (30.0-36.0); Mean Corpuscular Hemoglobin 33.5 pg (28.0-34.0); Mean Corpuscular Volume 104.1 fL (81-99); Monocytes # 0.6 10^3/uL (0.2-0.9); Monocytes % 14.9 %; Neutrophils # 2.1 10^3/uL (1.8-7.7); Neutrophils % 51.8 %; Nucleated Red Blood Cells % 0.8 %; Platelet Count 433 10^3/cmm (130-400)
[2019-11-08 11:05] LABS: Alanine Aminotransferase 15 U/L (0-33); Albumin Level 4.5 g/dL (3.5-5.2); Alkaline Phosphatase 71 IU/L (35-105); Anion Gap 17.8 (5-19); Aspartate Amino Transferase 16 U/L (0-32); Blood Urea Nitrogen 8 mg/dL (8-23); Calcium 9.2 mg/dL (8.5-10.5); Carbon Dioxide 28 mmol/L (22-29); Chloride 98 mmol/L (98-107); Globulin 2.3 g/dL (1.3-4.6); Glomerular Filtration Rate 123.1 mL/min (90-130); Glucose 164 mg/dL (65-115); Osmolality Calculated 290 mOsm/kg (285-295); Potassium 3.8 mmol/L (3.5-5.1); Sodium 140 mmol/L (136-145); Total Bilirubin 0.2 mg/dL (0.15-1.2); Total Protein 6.8 g/dL (6.6-8.7)
--- NOTE | 2019-11-09 10:24 | ONC FU_ITS ---
Dr. Zhou follow up note Patient: Moraima Harris Unit #: [id number]: 1950 Dicatated By: Barbara Zhou M.D.Date of Visit:November 09, 2019 Onc Med Follow-up/Prog Note History of Present Illness: Mrs. Harris is a 68-year-old female with history of COPD, chronic smoking and exercise hypoxemia. She recently underwent CT scan of chest which showed 2 separate pulmonary nodules e.g. 1 in the left upper lobe and one in the left lower lobe. Subsequently she underwent CT PET scan on 05/10/2019 which confirmed multiple left lung nodules with SUV of 9.2 the largest of disease in the posterior aspect of left upper lobe measuring up to 0.8 x 1.3 cm. As per discussion with Dr. Orourke radiation oncologist, there are 3 small separate nodules in the left upper lobe and one in the left lower lobe and because of location, SBRT can be performed. CT PET scan showed no mediastinal or hilar lymphadenopathy or any distance metastatic disease. Mrs Harris underwent CT-guided biopsy of left upper lobe nodule on 06/01/2019. 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 Because of underlying lung condition, patient was not a candidate for surgery so she was referred to radiation/medical oncology for evaluation and management.Cancer type ID was done on 06/01/2019 showed squamous cell carcinoma lung as a primary within 77% probability. Mrs Harris denies any history of hemoptysis or hematemesis. She denies any history of bony pains; headaches; blurred vision or double vision. She has history of brain tumor for which she underwent yearly MRI scan for 5-6 years without any progression as per patient at that time she was told it could be a benign lesion or she may have born with it. She also has a skin lesion in left subaxillary area for which she was supposed to see mineral surveyor but she canceled her appointment once she found out about lung cancer. Mrs Harris denies any weight loss. She denies any jaundice or any history of sore throat or dysphagia. She denies any history of vaginal bleeding. Mrs Harris is a chronic smoker and smokes about pack a day-currently. Status post SB RT to left upper lobe lung lesion from 07/13/2019 through 07/22/2019 Status post SB RT to left lower lobe of lung nodule from 07/25/2019 and completed on 08/02/2019 tolerated SB RT to left lung nodules well. After completion of the SBRT, Mrs Harris was offered further treatment with chemotherapy consisting of Carboplatin/gemcitabine. The carboplatin is day 1 and gemcitabine is day 1 and 8. She began her first cycle on August 16, 2019. Follow-up CT scan of chest done on 09/14/2019 showed previously described FDG avid nodules in the left upper lobe and left lower lobe have essentially resolved with a small amount of residual parenchymal tissue. No mediastinal or hilar lymphadenopathy. Small esophageal hiatal hernia. Low-attenuation lesion in the spleen measuring 8mm nonspecific but may represent benign cavernous angioma. CT scan of the neck done on 10/05/2019 showed spongiform inferior left thyroid nodule with a maximum diameter 1.4 cm. Recommended yearly ultrasound and if change in size, we'll consider biopsy otherwise no suspicious or concerning nodules seen in thyroid. Came for follow-up, denies any specific complaints, no nausea or vomiting, no fever or chills, no postnasal discharge, no sore throat. No diarrhea constipation. Tolerating systemic therapy with carboplatin and gemcitabine, well Medications: Aspirin 81 mg (of 81 mg) Tablet Oral daily, Cholecalciferol Tablet Oral, Diclofenac Sodium 75 mg (of 75 mg) Tablet, enteric coated Oral daily, hydroCHLOROthiazide 12.5 mg (of 12.5 mg) Tablet Oral daily, Simvastatin 20 mg (of 20 mg) Tablet Oral daily, Vitamin C Capsule Oral Allergies: No Known Allergies. Review of Systems: Constitutional - Appetite is good and weight is stable. No fever, chills, hot flashes, or night sweats. Energy level is fair. Pt reports fatigue in the afternoons, ENMT - No sinus congestion/drainage. No mouth sores. No sore throat or difficulty swallowing, Hematologic/Lymphatic - No abnormal bruising or bleeding, Respiratory - No shortness of breath. No cough. No pleuritic pain or hemoptysis, Cardiovascular - No angina pain. No palpitations, Gastrointestinal - No nausea or vomiting. No heartburn or acid reflux. No diarrhea or constipation. No blood in the stool or black stools, Genitourinary (F) - No dysuria or hematuria. No urinary frequency. No urgency or incontinence, Musculoskeletal - No joint or bone pain, Neurologic - No headache or dizziness. No numbness/paresthesias or other focal neurologic symptoms, Psychiatric - No anxiety or depression. No insomnia. Vital Signs: Performed on November 09, 2019 09:54 Height - 61.00 in Weight - 160.4 lbs (HIGH) BSA - 1.72 sq.m BMI - 30.31 (HIGH) Temperature - 97.9 F (LOW) Pulse - 94 /min Respiration - 16 /min BP - 174/76 mm(hg) (HIGH) O2 Sat - 96 % Pain - 0 Performance Status: 0 - Fully active, able to carry on all predisease activities without restrictions. (ECOG) Physical Examination: ENMT - no mouth sores, no thrush, Respiratory - Lungs are clear, Cardiovascular - Regular rate and rhythm of heart, Abdomen - soft, bowel sounds present, Extremities - no edema or rash. Lab/Imaging: Test performed on November 08, 2019 09:00 Sodium 140 mmol/L Potassium 3.8 mmol/L Chloride 98 mmol/L CO2 28 mmol/L Anion Gap 17.8 BUN 8 mg/dL Creatinine 0.5 mg/dL Cr Clearance (Est) 122.7500 mL/min eGFR 123.1 mL/min Glucose 164 mg/dL Calcium 9.2 mg/dL Protein, Total 6.8 g/dL Albumin 4.5 g/dL Globulin 2.3 g/dL Bilirubin, Total 0.2 mg/dL ALT (SGPT) 15 U/L AST (SGOT) 16 U/L Alkaline Phosphatase 71 IU/L WBC 4.0 10 3/uL RBC 3.40 10 6/uL HGB 11.4 g/dL HCT 35.4 % MCV 104.1 fL MCH 33.5 pg MCHC 32.2 g/dL RDW 18.0 % Platelet Count 433 10 3/cmm MPV 11.0 fL Neutrophils 2.1 10 3/uL Lymphocytes 1.2 10 3/uL Monocytes 0.6 10 3/uL Eosinophils 0.0 10 3/uL Basophils 0.0 10 3/uL Neutrophil % 51.8 % Lymphocyte % 30.2 % Monocyte % 14.9 % Eosinophil % 0.8 % Basophils % 0.5 % Test performed on October 28, 2019 10:45 Manual Lymphocytes 31.4 % Manual Monocytes 6.0 % Manual Eosinophils 0.4 % Manual Basophils 0.8 % Test performed on Sep 19, 2019 08:57 Manual Bands % 18.0 % Metamyelocytes % 6.0 % Myelocytes % 2.0 % CBC Slide Review Slide Review Perform Manual Bands Abs 1.3 10 3/cmm Manual Monocytes Abs 0.9 10 3/cmm Test performed on Jul 13, 2019 14:34 NRBCs 0.0 /100 WBC Impression: Moderately differentiated squamous cell carcinoma per CT-guided biopsy of left upper lobe lung done on 06/01/2019 Immunohistochemistry showed positive for p40 and negative for TTF-1. CT PET scan done on 05/10/2019 showed multiple hypermetabolic nodules in left lung e.g. 3 closely related nodules in upper left lobe largest being 0.8 x 1.3 cm and one in the left lower lobe. Cancer type ID confirmed lung being primary at 77% probability Clinical stage T4 ( lesions in ipsilateral separate lobes) NX M0 stage IIIa COPD, exercise hypoxemia, chronic smoking Mrs Harris tolerated SB RT to left upper lobe lung nodules as well as left lower lobe lung nodule well. She has been advised to pursue further treatment per Dr Zhou. Earlier patient required cancer type ID to confirm the primary as with clinical presentation metastatic disease was one of the possibility but cancer type ID confirmed pulmonary being primary with 77% probability, we will also consider PDL 1 status and molecular profiling of the tumor discussed the role of adjuvant chemotherapy as patient was not a candidate for surgery but underwent SB RT. recommended systemic chemotherapy with carboplatin AUC 5 on day 1 and gemcitabine 1,000mg per meter square day 1 and day 8 and repeat every 21 days ???4 cycles. She began her first cycle of carboplatin gemcitabine on August 16, 2019. Plan: Discussed with patient regarding her labs white blood count 4 hemoglobin 11.4 hematocrit 35.4 platelets 433,000 ANC 2100 CMP within normal limits Clinically, patient is doing well, tolerating adjuvant therapy with carboplatin/gemcitabine well but with expected side effects e.g. progressive pancytopenia, today's lab shows resolution of leukopenia and thrombocytopenia and will proceed with final cycle of adjuvant chemotherapy with carboplatin/gemcitabine today and then she will return to clinic in 1 week with CBC CMP and blood counts looks reasonable for weekly gemcitabine, with that she will conclude her adjuvant chemotherapy. Signed By: Barbara Zhou M.D. <<Signature on File>>
[2019-11-09] MEDS: sodium chloride 0.9% 250 ML 75 ML IV (10:40)
[2019-11-14 19:49] LABS: Basophils % 0.7 %; Eosinophils % 0.2 %; Hemoglobin 11.6 g/dL (11.5-15.3); Lymphocytes # 1.2 10^3/uL (0.8-4.8); Lymphocytes % 19.4 %; Mean Corpuscular HGB Conc 31.4 g/dL (30.0-36.0); Mean Corpuscular Hemoglobin 32.9 pg (28.0-34.0); Mean Corpuscular Volume 104.8 fL (81-99); Mean Platelet Volume 11.6 fL (7.4-10.4); Monocytes # 0.1 10^3/uL (0.2-0.9); Monocytes % 1.3 %; Neutrophils # 4.7 10^3/uL (1.8-7.7); Neutrophils % 78.2 %; Nucleated Red Blood Cells % 0 %; Platelet Count 270 10^3/cmm (130-400); Red Blood Count 3.53 10^6/uL (4.1-5.3); Red Cell Distribution Width 17.2 % (12.1-15.1)
[2019-11-15 00:39] LABS: Alanine Aminotransferase 34 U/L (0-33); Albumin Level 4.8 g/dL (3.5-5.2); Alkaline Phosphatase 67 IU/L (35-105); Anion Gap 22.4 (5-19); Aspartate Amino Transferase 30 U/L (0-32); Blood Urea Nitrogen 12 mg/dL (8-23); Calcium 9.4 mg/dL (8.5-10.5); Carbon Dioxide 24 mmol/L (22-29); Chloride 98 mmol/L (98-107); Globulin 2.3 g/dL (1.3-4.6); Glomerular Filtration Rate 123.1 mL/min (90-130); Glucose 133 mg/dL (65-115); Osmolality Calculated 290 mOsm/kg (285-295); Potassium 3.4 mmol/L (3.5-5.1); Sodium 141 mmol/L (136-145); Total Bilirubin 0.3 mg/dL (0.15-1.2); Total Protein 7.1 g/dL (6.6-8.7)
[2019-11-15] MEDS: sodium chloride 0.9% 250 ML 75 ML IV (10:45)
[2019-11-15] MEDS: pantoprazole 40 mg SDV IV (10:45)
--- NOTE | 2019-11-21 11:25 | ONC FU_ITS ---
[facility] Patient Note Patient: Moraima Harris Unit #: [id number]: [id number] Dictated By: Ely HebertDate of Visit: November 15, 2019 Onc MED Follow-Up/Prog Note Chief Complaint: Squamous cell carcinoma left lung History of Present Illness: Mrs. Harris is a 68-year-old female with history of COPD, chronic smoking and exercise hypoxemia. She recently underwent CT scan of chest which showed 2 separate pulmonary nodules e.g. 1 in the left upper lobe and one in the left lower lobe. Subsequently she underwent CT PET scan on 05/10/2019 which confirmed multiple left lung nodules with SUV of 9.2 the largest of disease in the posterior aspect of left upper lobe measuring up to 0.8 x 1.3 cm. As per discussion with Dr. Orourke radiation oncologist, there are 3 small separate nodules in the left upper lobe and one in the left lower lobe and because of location, SBRT can be performed. CT PET scan showed no mediastinal or hilar lymphadenopathy or any distance metastatic disease. Mrs Harris underwent CT-guided biopsy of left upper lobe nodule on 06/01/2019. 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 Because of underlying lung condition, patient was not a candidate for surgery so she was referred to radiation/medical oncology for evaluation and management.Cancer type ID was done on 06/01/2019 showed squamous cell carcinoma lung as a primary within 77% probability. Mrs Harris denies any history of hemoptysis or hematemesis. She denies any history of bony pains; headaches; blurred vision or double vision. She has history of brain tumor for which she underwent yearly MRI scan for 5-6 years without any progression as per patient at that time she was told it could be a benign lesion or she may have born with it. She also has a skin lesion in left subaxillary area for which she was supposed to see earthmoving plant operator but she canceled her appointment once she found out about lung cancer. Mrs Harris denies any weight loss. She denies any jaundice or any history of sore throat or dysphagia. She denies any history of vaginal bleeding. Mrs Harris is a chronic smoker and smokes about pack a day-currently. Status post SB RT to left upper lobe lung lesion from 07/13/2019 through 07/22/2019 Status post SB RT to left lower lobe of lung nodule from 07/25/2019 and completed on 08/02/2019 tolerated SB RT to left lung nodules well. After completion of the SBRT, Mrs Harris was offered further treatment with chemotherapy consisting of Carboplatin/gemcitabine. The carboplatin is day 1 and gemcitabine is day 1 and 8. She began her first cycle on August 16, 2019. Follow-up CT scan of chest done on 09/14/2019 showed previously described FDG avid nodules in the left upper lobe and left lower lobe have essentially resolved with a small amount of residual parenchymal tissue. No mediastinal or hilar lymphadenopathy. Small esophageal hiatal hernia. Low-attenuation lesion in the spleen measuring 8mm nonspecific but may represent benign cavernous angioma. CT scan of the neck done on 10/05/2019 showed spongiform inferior left thyroid nodule with a maximum diameter 1.4 cm. Recommended yearly ultrasound and if change in size, we'll consider biopsy otherwise no suspicious or concerning nodules seen in thyroid. Mrs Harris is here today for followup. She has no new concerns today. She does mention that she has had occasional headache and some blurry vision and occasional dizziness. She states the symptoms go away as fast as it starts. She states she has not been a particular trigger for any of the spells. She has had no falls. She states she is had a couple of spells where she has just had vomiting. She has had some increase in heartburn from her description. She states she had some chest discomfort when bending over that is gone now. She was able to work in her garden yesterday with no problems. However she states the day before that the chest discomfort and vomiting were pretty significant. She states she is still smoking. She denies any fever or chills. She has had no diarrhea or constipation. She states she is eating good. Energy is good. She denies any pain. Her ECOG is 0. Past Medical History: Carotid artery stenosis Chronic obstructive pulmonary disease Hypertension Obstructive sleep apnea Past Surgical History: Carotid artery [facility] Allergies: No Known Allergies. Medications: Aspirin 81 mg (of 81 mg) Tablet Oral daily Cholecalciferol Tablet Oral Diclofenac Sodium 75 mg (of 75 mg) Tablet, enteric coated Oral daily hydroCHLOROthiazide 12.5 mg (of 12.5 mg) Tablet Oral daily Simvastatin 20 mg (of 20 mg) Tablet Oral daily Vitamin C Capsule Oral Family History: Ms. Harris's mother at age 96: stroke, and myocardial infarction. Ms. Harris's father at age 86: prostate cancer, and renal failure. Ms. Harris has 1 sister who is : stomach cancer. Social History: Ms. Harris is and she is retired. She is a daily smoker who has smoked 1.0 pack/day for 51 years. She has no history of drinking. She has indicated exposure to the following products: cigarettes. Ms. Harris reports the following support systems: lives with spouse, significant other, family, or friends, lives in own house, supportive family/friends willing to assist with needs, and adequate transportation available for expected visits. Her diet consists of regular meals. She indicates her activity level as: light exercise. Review Of Symptoms: Constitutional Denies fevers, chills, night sweats, excessive fatigue or weight loss. Occassional dizziness- probably allergies / Allergic/Immunologic No reactions. Eyes Denies significant visual changes. No diplopia. No amaurosis. Occassional blurry vision. ENMT Denies changes in hearing, sore throat, mouth sores, difficulty or changes in swallowing ability, and/or sinus drainage. Endocrine No diabetes, thyroid disease or hormone replacement. Denies hot flashes or night sweats. Hematologic/Lymphatic Denies easy bruising or bleeding. The patient denies any tender or palpable lymph nodes. Respiratory Denies dyspnea on exertion, chest pain, cough or hemoptysis. Denies orthopnea. Cardiovascular Denies anginal chest pain, palpitations or orthopnea. Gastrointestinal Denies nausea, diarrhea, GI bleeding, or constipation. Denies change in bowel habits and/or stool color, no heartburn or early satiety. She reports that she has had some Nick he is vomiting but after she describes it more detail it sounds like it could be gastritis. Genitourinary (F) No hematuria, hesitancy, incontinence, vaginal bleeding, discharge or other problems with urination. Musculoskeletal Denies joint pain, swelling or redness. No decreased range of motion. Integumentary Denies chronic rashes, inflammation, ulcerations or skin changes. Neurologic Denies headache, blurred vision, and no areas of focal weakness or numbness. Normal gait. No sensory problems. Psychiatric Denies insomnia, depression, hetal or mood swings. Vital Signs: Performed on November 15, 2019 10:02 Height - 61.00 in Weight - 158 lbs (LOW) BSA - 1.71 sq.m BMI - 29.85 Temperature - 98.5 F Pulse - 100 /min Respiration - 19 /min BP - 124/76 mm(hg) O2 Sat - 93 % (LOW) Pain - 0,1 - No physically strenuous activity, but ambulatory and able to carry out light or sedentary work (e.g. office work, light house work). (ECOG) Physical Examination: Constitutional Alert, oriented, no acute distress. Skin pink, warm and dry. Head Normocephalic; atraumatic. Eyes Conjunctivae and sclerae are clear and without icterus. Pupils are reactive and equal. ENMT No oral exudates, ulcers, masses, thrush or mucositis. Oropharynx clear. Tongue normal. Neck Supple without masses or thyromegaly. No jugular venous distension. Hematologic/Lymphatic No petechiae or purpura. No tender or palpable lymph nodes in the cervical or supraclavicular areas. Respiratory Lungs are clear to auscultation without rhonchi or wheezing. Cardiovascular Regular rate and rhythm of heart without murmurs,clicks, gallops or rubs. Abdomen Non-tender, non-distended, no masses or ascites. Good bowel sounds noted in all quads. No guarding or rebound tenderness. No pulsatile masses. Back/Spine Non-tender to palpation. Extremities No visible deformities, no cyanosis, clubbing or edema. Musculoskeletal No tenderness or swelling, normal range of motion without obvious weakness. Integumentary No rashes or lesions. Neurologic No sensory or motor deficits, normal cerebellar function, normal gait. Psychiatric Alert and oriented times three. Coherent speech. Verbalizes understanding of our discussions today. Laboratory:Test performed on November 14, 2019 13:00 Sodium 141 mmol/L Potassium 3.4 mmol/L Chloride 98 mmol/L CO2 24 mmol/L Anion Gap 22.4 BUN 12 mg/dL Creatinine 0.5 mg/dL Cr Clearance (Est) 122.7500 mL/min eGFR 123.1 mL/min Glucose 133 mg/dL Calcium 9.4 mg/dL Protein, Total 7.1 g/dL Albumin 4.8 g/dL Globulin 2.3 g/dL Bilirubin, Total 0.3 mg/dL ALT (SGPT) 34 U/L AST (SGOT) 30 U/L Alkaline Phosphatase 67 IU/L WBC 6.0 10 3/uL RBC 3.53 10 6/uL HGB 11.6 g/dL HCT 37.0 % MCV 104.8 fL MCH 32.9 pg MCHC 31.4 g/dL RDW 17.2 % Platelet Count 270 10 3/cmm MPV 11.6 fL Neutrophils 4.7 10 3/uL Lymphocytes 1.2 10 3/uL Monocytes 0.1 10 3/uL Eosinophils 0.0 10 3/uL Basophils 0.0 10 3/uL Neutrophil % 78.2 % Lymphocyte % 19.4 % Monocyte % 1.3 % Eosinophil % 0.2 % Basophils % 0.7 % Test performed on October 28, 2019 10:45 Manual Lymphocytes 31.4 % Manual Monocytes 6.0 % Manual Eosinophils 0.4 % Manual Basophils 0.8 % Immunohistochemistry showed positive for p40 and negative for TTF-1. CT PET scan done on 05/10/2019 showed multiple hypermetabolic nodules in left lung e.g. 3 closely related nodules in upper left lobe largest being 0.8 x 1.3 cm and one in the left lower lobe. Cancer type ID confirmed lung being primary at 77% probability Clinical stage T4 ( lesions in ipsilateral separate lobes) NX M0 stage IIIa COPD, exercise hypoxemia, chronic smoking Mrs Byse tolerated SB RT to left upper lobe lung nodules as well as left lower lobe lung nodule well. She had been advised to pursue further treatment per Dr Zhou. Earlier patient required cancer type ID to confirm the primary as with clinical presentation metastatic disease was one of the possibility but cancer type ID confirmed pulmonary being primary with 77% probability, we will also consider PDL 1 status and molecular profiling of the tumor Dr Zhou discussed the role of adjuvant chemotherapy as patient was not a candidate for surgery but underwent SB RT. recommended systemic chemotherapy with carboplatin AUC 5 on day 1 and gemcitabine 1,000mg per meter square day 1 and day 8 and repeat every 21 days ???4 cycles. She began her first cycle of carboplatin gemcitabine on August 16, 2019. Clinically, Mrs Harris is doing well. She is tolerating adjuvant therapy with carboplatin/gemcitabine well but with expected side effects e.g. progressive pancytopenia. She may be experiencing gastritis. Plan: 1. Proceed with cycle 4-day 8 carboplatin gemcitabine. This will complete her planned chemotherapy. 2. Continue current antiemetics as they are working well. 3. Labs from 02/14/2020 were reviewed in detail and discussed with Ms. Adams and a copy was given to her. WBC 6.0, hemoglobin 11.6, platelets 270,000 neutrophils are 4700 and LFTs are unremarkable creatinine is 0.5 potassium 3.4. 4. We did discuss her smoking. She is still smoking and is not interested in quitting. 5. I did discuss with her at length her symptoms especially the GI symptoms seem to be related to gastritis however she does not want to change any of her stomach pills at this time. She states it is better and she thinks she can regulate with what she eats. 6. In regards to the intermittent dizziness, blurry vision and headaches, she thinks this may be allergies or sinus. However I have informed her that this is persistent or worsens especially given the intermittent vomiting, I did discuss that we may want to ahead MRI if her symptoms are more frequent or worsen. 7. We will Plan to check in interim count in 1 week for chemotherapy monitoring. Follow-up in 2 weeks with CBC CMP with Dr. Zhou to discuss the plan of care in future. Also follow-up on the intermittent vomiting, intermittent dizziness and headaches. 8. She did have a bilateral screening digital mammogram on 11/10/2019. They are asking for additional views due to a suspicious calcification. She will need ultrasound imaging as well. She states she is always had bumps on her breast that I know mammograms . I did put orders in for this. Signed By: Josh HebertNCrissy <<Signature on File>>
[2019-11-22 10:54] LABS: Basophils % 0.5 %; Eosinophils % 0.3 %; Hematocrit 29.5 % (37.0-47.0); Hemoglobin 9.7 g/dL (11.5-15.3); Lymphocytes # 1.1 10^3/uL (0.8-4.8); Lymphocytes % 29.2 %; Mean Corpuscular HGB Conc 32.9 g/dL (30.0-36.0); Mean Corpuscular Hemoglobin 33.2 pg (28.0-34.0); Monocytes # 0.4 10^3/uL (0.2-0.9); Monocytes % 9.4 %; Neutrophils # 2.3 10^3/uL (1.8-7.7); Neutrophils % 59.8 %; Nucleated Red Blood Cells % 0 %; Red Blood Count 2.92 10^6/uL (4.1-5.3); Red Cell Distribution Width 15.9 % (12.1-15.1); White Blood Count 3.8 10^3/uL (4.0-10.0)
[2019-11-22 11:07] LABS: Platelet Count 27 10^3/cmm (130-400)
[2019-11-22 11:08] LABS: Slide Review Slide Review Perform
== END 2019-11-27 23:59 | disposition home or self-care (01) ==
LOC: ONCMED 06:50
PROVIDERS: PCP Internal Medicine Pulmonary Disease; Visit Provider Internal Medicine Hematology & Oncology
DX: Z51.11 Encounter for antineoplastic chemotherapy (principal); C34.12 Malignant neoplasm of upper lobe, left bronchus or lung; I65.23 Occlusion and stenosis of bilateral carotid arteries; J44.9 Chronic obstructive pulmonary disease, unspecified; I10 Essential (primary) hypertension; G47.33 Obstructive sleep apnea (adult) (pediatric); Z79.899 Other long term (current) drug therapy
CPT/HCPCS: 36415; 36591; 80053; 85025; 96367; 96375; 96413; 96417; 99214; C9113; J1100; J1453; J2405; J7050; J9045; J9201

== ENCOUNTER 2019-12-26 11:30 | Outpatient (RCR) | payer MEDICARE, OTHER, SELFPAY ==
[2019-11-29 08:03] LABS: Basophils % 0.2 %; Eosinophils % 0.8 %; Hematocrit 33.6 % (37.0-47.0); Hemoglobin 10.4 g/dL (11.5-15.3); Lymphocytes % 20.9 %; Mean Corpuscular Hemoglobin 33.5 pg (28.0-34.0); Mean Corpuscular Volume 108.4 fL (81-99); Monocytes # 0.5 10^3/uL (0.2-0.9); Monocytes % 11.1 %; Neutrophils # 3.2 10^3/uL (1.8-7.7); Nucleated Red Blood Cells % 0 %; Platelet Count 187 10^3/cmm (130-400); White Blood Count 4.9 10^3/uL (4.0-10.0)
[2019-11-29 08:17] LABS: Alanine Aminotransferase 43 U/L (0-33); Albumin Level 4.4 g/dL (3.5-5.2); Alkaline Phosphatase 68 IU/L (35-105); Anion Gap 16.5 (5-19); Aspartate Amino Transferase 36 U/L (0-32); Blood Urea Nitrogen 9 mg/dL (8-23); Carbon Dioxide 28 mmol/L (22-29); Chloride 99 mmol/L (98-107); Globulin 2.7 g/dL (1.3-4.6); Glomerular Filtration Rate 99.4 mL/min (90-130); Glucose 112 mg/dL (65-115); Osmolality Calculated 287 mOsm/kg (285-295); Potassium 3.5 mmol/L (3.5-5.1); Sodium 140 mmol/L (136-145); Total Bilirubin 0.2 mg/dL (0.15-1.2); Total Protein 7.1 g/dL (6.6-8.7)
--- NOTE | 2019-11-29 13:06 | ONC FU_ITS ---
Dr. Zhou follow up note Patient: Moraima Harris Unit #: [id number]: 1950 Dicatated By: Barbara Zhou M.D.Date of Visit:Nov 29, 2019 Onc Med Follow-up/Prog Note History of Present Illness: Mrs. Harris is a 69-year-old female with history of COPD, chronic smoking and exercise hypoxemia. She recently underwent CT scan of chest which showed 2 separate pulmonary nodules e.g. 1 in the left upper lobe and one in the left lower lobe. Subsequently she underwent CT PET scan on 05/10/2019 which confirmed multiple left lung nodules with SUV of 9.2 the largest of disease in the posterior aspect of left upper lobe measuring up to 0.8 x 1.3 cm. As per discussion with Dr. Orourke radiation oncologist, there are 3 small separate nodules in the left upper lobe and one in the left lower lobe and because of location, SBRT can be performed. CT PET scan showed no mediastinal or hilar lymphadenopathy or any distance metastatic disease. Mrs Harris underwent CT-guided biopsy of left upper lobe nodule on 06/01/2019. 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 Because of underlying lung condition, patient was not a candidate for surgery so she was referred to radiation/medical oncology for evaluation and management.Cancer type ID was done on 06/01/2019 showed squamous cell carcinoma lung as a primary within 77% probability. Mrs Harris denies any history of hemoptysis or hematemesis. She denies any history of bony pains; headaches; blurred vision or double vision. She has history of brain tumor for which she underwent yearly MRI scan for 5-6 years without any progression as per patient at that time she was told it could be a benign lesion or she may have born with it. She also has a skin lesion in left subaxillary area for which she was supposed to see tufting creeler but she canceled her appointment once she found out about lung cancer. Mrs Harris denies any weight loss. She denies any jaundice or any history of sore throat or dysphagia. She denies any history of vaginal bleeding. Mrs Harris is a chronic smoker and smokes about pack a day-currently. Status post SB RT to left upper lobe lung lesion from 07/13/2019 through 07/22/2019 Status post SB RT to left lower lobe of lung nodule from 07/25/2019 and completed on 08/02/2019 tolerated SB RT to left lung nodules well. After completion of the SBRT, Mrs Harris was offered further treatment with chemotherapy consisting of Carboplatin/gemcitabine. The carboplatin is day 1 and gemcitabine is day 1 and 8. She began her first cycle on August 16, 2019.and completed 4 cycles,on 11/15/2019 Follow-up CT scan of chest done on 09/14/2019 showed previously described FDG avid nodules in the left upper lobe and left lower lobe have essentially resolved with a small amount of residual parenchymal tissue. No mediastinal or hilar lymphadenopathy. Small esophageal hiatal hernia. Low-attenuation lesion in the spleen measuring 8mm nonspecific but may represent benign cavernous angioma. CT scan of the neck done on 10/05/2019 showed spongiform inferior left thyroid nodule with a maximum diameter 1.4 cm. Recommended yearly ultrasound and if change in size, we'll consider biopsy otherwise no suspicious or concerning nodules seen in thyroid .Follow-up mammogram done on 11/10/2019 showed increased soft tissue and calcification in right upper quadrant and scattered calcifications in the left breast, further imaging recommended Came for follow-up, denies any specific complaints, no fever or chills, no nausea or vomiting, now more energetic since last week, no chest pain, no heartburn indigestion. Medications: Cholecalciferol Tablet Oral, hydroCHLOROthiazide 12.5 mg (of 12.5 mg) Tablet Oral daily, Simvastatin 20 mg (of 20 mg) Tablet Oral daily, Vitamin C Capsule Oral Allergies: No Known Allergies. Review of Systems: Constitutional - Appetite is good and weight is stable. No fever, chills, hot flashes, or night sweats. Energy level is fair. Pt reports fatigue in the afternoons, ENMT - No sinus congestion/drainage. No mouth sores. No sore throat or difficulty swallowing, Hematologic/Lymphatic - No abnormal bruising or bleeding, Respiratory - No shortness of breath. No cough. No pleuritic pain or hemoptysis, Cardiovascular - No angina pain. No palpitations, Gastrointestinal - No nausea or vomiting. No heartburn or acid reflux. No diarrhea or constipation. No blood in the stool or black stools, Genitourinary (F) - No dysuria or hematuria. No urinary frequency. No urgency or incontinence, Musculoskeletal - No joint or bone pain, Neurologic - No headache or dizziness. No numbness/paresthesias or other focal neurologic symptoms, Psychiatric - No anxiety or depression. No insomnia. Vital Signs: Performed on Nov 29, 2019 09:03 Height - 61.00 in Weight - 162.8 lbs (HIGH) BSA - 1.73 sq.m BMI - 30.76 (HIGH) Temperature - 98.5 F Pulse - 97 /min Respiration - 20 /min BP - 143/63 mm(hg) (HIGH) O2 Sat - 99 % Pain - 0 Performance Status: 0 - Fully active, able to carry on all predisease activities without restrictions. (ECOG) Physical Examination: ENMT - no mouth sores,no thrush, no jaundice, Respiratory - Lungs are clear, Cardiovascular - Regular rate and rhythm of heart, Abdomen - soft, bowel sounds present, Extremities - no visible edema. Lab/Imaging: Test performed on November 22, 2019 10:36 WBC 3.8 10 3/uL RBC 2.92 10 6/uL HGB 9.7 g/dL HCT 29.5 % MCV 101.0 fL MCH 33.2 pg MCHC 32.9 g/dL RDW 15.9 % Platelet Count 27 10 3/cmm MPV 12.0 fL Neutrophils 2.3 10 3/uL Lymphocytes 1.1 10 3/uL Monocytes 0.4 10 3/uL Eosinophils 0.0 10 3/uL Basophils 0.0 10 3/uL Neutrophil % 59.8 % Lymphocyte % 29.2 % Monocyte % 9.4 % Eosinophil % 0.3 % Basophils % 0.5 % CBC Slide Review Slide Review Perform SLIDE REVIEW AGREES WITH AUTOMATED RESULTS Test performed on November 14, 2019 13:00 Sodium 141 mmol/L Potassium 3.4 mmol/L Chloride 98 mmol/L CO2 24 mmol/L Anion Gap 22.4 BUN 12 mg/dL Creatinine 0.5 mg/dL Cr Clearance (Est) 122.7500 mL/min eGFR 123.1 mL/min Glucose 133 mg/dL Calcium 9.4 mg/dL Protein, Total 7.1 g/dL Albumin 4.8 g/dL Globulin 2.3 g/dL Bilirubin, Total 0.3 mg/dL ALT (SGPT) 34 U/L AST (SGOT) 30 U/L Alkaline Phosphatase 67 IU/L Test performed on October 28, 2019 10:45 Manual Lymphocytes 31.4 % Manual Monocytes 6.0 % Manual Eosinophils 0.4 % Manual Basophils 0.8 % Test performed on Sep 19, 2019 08:57 Manual Bands % 18.0 % Metamyelocytes % 6.0 % Myelocytes % 2.0 % Manual Bands Abs 1.3 10 3/cmm Manual Monocytes Abs 0.9 10 3/cmm Test performed on Jul 13, 2019 14:34 NRBCs 0.0 /100 WBC Impression: Moderately differentiated squamous cell carcinoma per CT-guided biopsy of left upper lobe lung done on 06/01/2019 Immunohistochemistry showed positive for p40 and negative for TTF-1. CT PET scan done on 05/10/2019 showed multiple hypermetabolic nodules in left lung e.g. 3 closely related nodules in upper left lobe largest being 0.8 x 1.3 cm and one in the left lower lobe. Cancer type ID confirmed lung being primary at 77% probability Clinical stage T4 ( lesions in ipsilateral separate lobes) NX M0 stage IIIa COPD, exercise hypoxemia, chronic smoking Mrs By tolerated SB RT to left upper lobe lung nodules as well as left lower lobe lung nodule well. She had been advised to pursue further treatment Earlier patient required cancer type ID to confirm the primary as with clinical presentation metastatic disease was one of the possibility but cancer type ID confirmed pulmonary being primary with 77% probability, we will also consider PDL 1 status and molecular profiling of the tumor discussed the role of adjuvant chemotherapy as patient was not a candidate for surgery but underwent SB RT. recommended systemic chemotherapy with carboplatin AUC 5 on day 1 and gemcitabine 1,000mg per meter square day 1 and day 8 and repeat every 21 days ???4 cycles. She began her first cycle of carboplatin gemcitabine on August 16, 2019.and completed 4 cycles on 11/15/2019 abnormal mammogram done on 11/10/2019 Plan: Discussed with patient regarding her labs white blood count 4.9 hemoglobin 10.4 crit 33.6 platelets 187,000 CMP within normal limit except ALT 43 and AST 36 Clinically, patient is doing well, now recovering from adjuvant chemotherapy. Her follow-up lab shows white blood count is normalized, thrombocytopenia has also resolved and hemoglobin is also improving, overall patient is improving too. As patient has completed SB RT to left lung nodules and followed by adjuvant chemotherapy, now the role of maintenance durvalumab in stage III a (T4 ,Nx) was discussed, patient wants to think about this and she was given literature, patient agreed then will consider durvalumab 10 mg/kg biweekly for 12 months. Abnormal mammogram, shows calcification and soft tissue mass in right breast and calcification left breast. We will refer her to Dr. Gonsalez to evaluate and also order ultrasonogram bilateral breast as recommended by radiology. Next Patient return to clinic in one month with CBC CMP. Signed By: Barbara Zhou M.D. <<Signature on File>>
--- NOTE | 2019-12-26 11:23 | US_ITS ---
WS: [id number] ADDITIONAL VIEWS BILATERAL MAMMOGRAM AND BILATERAL BREAST ULTRASOUND HISTORY: ABNORMAL MAMMOGRAM COMPARISON: 11/10/2019 Right breast: Pleomorphic calcifications extend in a linear, segmental distribution upper-outer quadr ant of the RIGHT breast. These calcifications extend over a length of at least 7 cm. Pleomorphic calc ifications in an area of increased soft tissue density. There is an acute additional mass measuring 6 .3 mm containing calcification anteriorly at 9:00. Left breast: Masses persist in the anterior LEFT breast. Slightly lobulated mass contains calcificati ons measuring 11 mm. There are 3 masses. One is likely a fibroadenoma. The other 2 are indeterminate but may be benign. BREAST ULTRASOUND RIGHT breast: Ultrasound directed to the upper outer quadrant of the RIGHT breast. There is a mixed e chogenicity tubular structure corresponding to the mammographic abnormality of calcification in the m ass. No axillary adenopathy. LEFT breast: Lobulated soft tissue mass with a few scattered calcifications at 9:00 adjacent to the a reola is identified. This is the most concerning nodule measuring 1.4 x 0.9 x 1.5 cm. Mild peripheral vascularity. 2. The most concerning mass in the anterior LEFT breast at 9:00 should undergo biopsy. Ultrasound-gu ided biopsy recommended. This is a lobulated soft tissue mass. The remaining masses are probably fibr oadenomas. US/US breast BI limited* [id number] IMPRESSION: BI-RADS: 4C-Suspicious: Moderate FOLLOW UP: Biopsy Recommended 1. RIGHT breast biopsy recommended. Stereotactic biopsy of the calcifications is recommended. If stereotactic biopsy is not possible believe this soft tissue mass with calcification is also evident by ultrasound. Either method would be adequate.
== END 2019-12-27 23:59 | disposition home or self-care (01) ==
LOC: RADSHAW 11:30
PROVIDERS: Visit Provider Internal Medicine Hematology & Oncology
DX: N63.25 Unspecified lump in the left breast, overlapping quadrants (principal); R92.1 Mammographic calcification found on diagnostic imaging of breast; C34.12 Malignant neoplasm of upper lobe, left bronchus or lung; J44.9 Chronic obstructive pulmonary disease, unspecified; R09.02 Hypoxemia; F17.200 Nicotine dependence, unspecified, uncomplicated; Z51.81 Encounter for therapeutic drug level monitoring; Z79.899 Other long term (current) drug therapy; Z92.3 Personal history of irradiation; Z92.21 Personal history of antineoplastic chemotherapy
CPT/HCPCS: 36415; 76642; 77066; 80053; 85025; 99214

== ENCOUNTER 2019-12-29 06:46 | Outpatient (RCR) | payer MEDICARE, OTHER, SELFPAY ==
--- NOTE | 2019-12-29 12:02 | ONC FU_ITS ---
Dr. Zhou follow up note Patient: Moraima Harris Unit #: [id number]: [id number] Dicatated By: Barbara Zhou M.D.Date of Visit:Dec 29, 2019 Onc Med Follow-up/Prog Note History of Present Illness: Mrs. Harris is a 69-year-old female with history of COPD, chronic smoking and exercise hypoxemia. She recently underwent CT scan of chest which showed 2 separate pulmonary nodules e.g. 1 in the left upper lobe and one in the left lower lobe. Subsequently she underwent CT PET scan on 05/10/2019 which confirmed multiple left lung nodules with SUV of 9.2 the largest of disease in the posterior aspect of left upper lobe measuring up to 0.8 x 1.3 cm. As per discussion with Dr. Orourke radiation oncologist, there are 3 small separate nodules in the left upper lobe and one in the left lower lobe and because of location, SBRT can be performed. CT PET scan showed no mediastinal or hilar lymphadenopathy or any distance metastatic disease. Mrs Harris underwent CT-guided biopsy of left upper lobe nodule on 06/01/2019. 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 Because of underlying lung condition, patient was not a candidate for surgery so she was referred to radiation/medical oncology for evaluation and management.Cancer type ID was done on 06/01/2019 showed squamous cell carcinoma lung as a primary within 77% probability. Mrs Harris denies any history of hemoptysis or hematemesis. She denies any history of bony pains; headaches; blurred vision or double vision. She has history of brain tumor for which she underwent yearly MRI scan for 5-6 years without any progression as per patient at that time she was told it could be a benign lesion or she may have born with it. She also has a skin lesion in left subaxillary area for which she was supposed to see saute chef but she canceled her appointment once she found out about lung cancer. Mrs Harris denies any weight loss. She denies any jaundice or any history of sore throat or dysphagia. She denies any history of vaginal bleeding. Mrs Harris is a chronic smoker and smokes about pack a day-currently. Status post SB RT to left upper lobe lung lesion from 07/13/2019 through 07/22/2019 Status post SB RT to left lower lobe of lung nodule from 07/25/2019 and completed on 08/02/2019 tolerated SB RT to left lung nodules well. After completion of the SBRT, Mrs Harris was offered further treatment with chemotherapy consisting of Carboplatin/gemcitabine. The carboplatin is day 1 and gemcitabine is day 1 and 8. She began her first cycle on August 16, 2019.and completed 4 cycles,on 11/15/2019 Follow-up CT scan of chest done on 09/14/2019 showed previously described FDG avid nodules in the left upper lobe and left lower lobe have essentially resolved with a small amount of residual parenchymal tissue. No mediastinal or hilar lymphadenopathy. Small esophageal hiatal hernia. Low-attenuation lesion in the spleen measuring 8mm nonspecific but may represent benign cavernous angioma. CT scan of the neck done on 10/05/2019 showed spongiform inferior left thyroid nodule with a maximum diameter 1.4 cm. Recommended yearly ultrasound and if change in size, we'll consider biopsy otherwise no suspicious or concerning nodules seen in thyroid Patient has history of left breast outer part biopsy done 20 years ago, as per patient it was benign .Follow-up mammogram done on 11/10/2019 showed increased soft tissue and calcification in right upper quadrant and scattered calcifications in the left breast, further imaging recommended Patient underwent ultrasound bilateral breast on December 26, 2019 which showed, right breast shows mixed echogenicity tubular structure corresponding to mammographic abnormality of of calcification in the mass and left breast showed at 9 o'clock position 1.4 x 0.9 x 1.5 cm nodule, case was discussed with Dr. Miller this morning and she recommended ultrasound-guided bilateral breast biopsy. Came for follow-up, patient denies any specific complaints, no no fever chills, no nausea or vomiting, no diarrhea constipation, no nipple discharge, no breast tenderness. Patient is scheduled for ultrasound guided bilateral breast biopsy in the morning Medications: Cholecalciferol Tablet Oral, hydroCHLOROthiazide 12.5 mg (of 12.5 mg) Tablet Oral daily, Simvastatin 20 mg (of 20 mg) Tablet Oral daily, Vitamin C Capsule Oral Allergies: No Known Allergies. Review of Systems: Review of Systems is not available for this patient. Vital Signs: Performed on Dec 29, 2019 11:22 Height - 61.00 in Weight - 156.0 lbs (LOW) BSA - 1.70 sq.m BMI - 29.48 Temperature - 99.1 F (HIGH) Pulse - 90 /min Respiration - 20 /min BP - 138/73 mm(hg) O2 Sat - 96 % Pain - 0 Performance Status: 0 - Fully active, able to carry on all predisease activities without restrictions. (ECOG) Physical Examination: ENMT - No mouth sores no thrush, no jaundice, Respiratory - Lungs are clear, Cardiovascular - Regular rate and rhythm of heart, Breasts - Symmetric bilaterally without nipple discharge and no Definitive masses or tenderness. No skin changes.No axillary lymphadenopathy, Extremities - No visible deformities, no cyanosis, clubbing or edema. Pulses 4+ and equal bilaterally. Lab/Imaging: Test performed on Nov 29, 2019 07:40 Sodium 140 mmol/L Potassium 3.5 mmol/L Chloride 99 mmol/L CO2 28 mmol/L Anion Gap 16.5 BUN 9 mg/dL Creatinine 0.6 mg/dL Cr Clearance (Est) 100.8900 mL/min eGFR 99.4 mL/min Glucose 112 mg/dL Calcium 10.0 mg/dL Protein, Total 7.1 g/dL Albumin 4.4 g/dL Globulin 2.7 g/dL Bilirubin, Total 0.2 mg/dL ALT (SGPT) 43 U/L AST (SGOT) 36 U/L Alkaline Phosphatase 68 IU/L WBC 4.9 10 3/uL RBC 3.10 10 6/uL HGB 10.4 g/dL HCT 33.6 % MCV 108.4 fL MCH 33.5 pg MCHC 31.0 g/dL RDW 19.0 % Platelet Count 187 10 3/cmm MPV 11.0 fL Neutrophils 3.2 10 3/uL Lymphocytes 1.0 10 3/uL Monocytes 0.5 10 3/uL Eosinophils 0.0 10 3/uL Basophils 0.0 10 3/uL Neutrophil % 66.0 % Lymphocyte % 20.9 % Monocyte % 11.1 % Eosinophil % 0.8 % Basophils % 0.2 % Test performed on November 22, 2019 10:36 CBC Slide Review Slide Review Perform SLIDE REVIEW AGREES WITH AUTOMATED RESULTS Test performed on October 28, 2019 10:45 Manual Lymphocytes 31.4 % Manual Monocytes 6.0 % Manual Eosinophils 0.4 % Manual Basophils 0.8 % Test performed on Sep 19, 2019 08:57 Manual Bands % 18.0 % Metamyelocytes % 6.0 % Myelocytes % 2.0 % Manual Bands Abs 1.3 10 3/cmm Manual Monocytes Abs 0.9 10 3/cmm Test performed on Jul 13, 2019 14:34 NRBCs 0.0 /100 WBC Impression: Moderately differentiated squamous cell carcinoma per CT-guided biopsy of left upper lobe lung done on 06/01/2019 Immunohistochemistry showed positive for p40 and negative for TTF-1. CT PET scan done on 05/10/2019 showed multiple hypermetabolic nodules in left lung e.g. 3 closely related nodules in upper left lobe largest being 0.8 x 1.3 cm and one in the left lower lobe. Cancer type ID confirmed lung being primary at 77% probability Clinical stage T4 ( lesions in ipsilateral separate lobes) NX M0 stage IIIa COPD, exercise hypoxemia, chronic smoking Mrs Byse tolerated SB RT to left upper lobe lung nodules as well as left lower lobe lung nodule well. She had been advised to pursue further treatment Earlier patient required cancer type ID to confirm the primary as with clinical presentation metastatic disease was one of the possibility but cancer type ID confirmed pulmonary being primary with 77% probability, we will also consider PDL 1 status and molecular profiling of the tumor discussed the role of adjuvant chemotherapy as patient was not a candidate for surgery but underwent SB RT. recommended systemic chemotherapy with carboplatin AUC 5 on day 1 and gemcitabine 1,000mg per meter square day 1 and day 8 and repeat every 21 days ???4 cycles. She began her first cycle of carboplatin gemcitabine on August 16, 2019.and completed 4 cycles on 11/15/2019 abnormal mammogram done on 11/10/2019 Plan: Discussed with patient regarding her bilateral breast sonogram findings which showed mixed echogenicity tubular structure corresponding to mammographic abnormality of calcification in the mass in the right breast and left breast showed at 9 o'clock position there is a 1.4 x 0.9 x 1.5 cm nodule, as per discussion with Dr. Miller, radiologist this morning bilateral ultrasound-guided breast biopsy was recommended. Which was ordered and scheduled for Bilateral biopsy in the morning and she has return appointment to clinic on January 06, 2020, but that time will have it pathology report back for further discussion. Signed By: Barbara Zhou M.D. <<Signature on File>>
== END 2019-12-29 23:59 | disposition home or self-care (01) ==
LOC: ONCMED 06:46
PROVIDERS: Visit Provider Internal Medicine Hematology & Oncology
DX: C34.12 Malignant neoplasm of upper lobe, left bronchus or lung (principal); I65.23 Occlusion and stenosis of bilateral carotid arteries; J44.9 Chronic obstructive pulmonary disease, unspecified; I10 Essential (primary) hypertension; G47.33 Obstructive sleep apnea (adult) (pediatric)
CPT/HCPCS: 99214

== ENCOUNTER 2019-12-30 06:42 | Outpatient (CLI) | payer MEDICARE, OTHER, SELFPAY ==
--- NOTE | 2019-12-30 06:57 | US_ITS ---
WS: [id number] ULTRASOUND-GUIDED LEFT BREAST BIOPSY HISTORY: Indeterminate mass LEFT breast at 9:00. COMPARISON: None. Procedure, risks and complications are explained to the patient. Medications are reviewed. Consent is obtained. The mass in the LEFT breast is localized with ultrasound. Skin is cleansed with ChloraPrep and anesth etized with 1% buffered lidocaine. Small dermatome is made. Under sterile conditions mass is biopsied with a 14-gauge Achieve needle. Multiple core biopsies are performed. Material placed in formalin an d sent to pathology for review. No complications encountered. Breast tissue marker (Bard ultrasound enhanced ribbon): Single. Patient left the radiology suite with no complications. [place] [facility] [place] [facility] with any concerns. 1. Uncomplicated core needle biopsy LEFT breast mass at 9:00. US/[place] [id number] IMPRESSION: PATHOLOGY: Fibroadenoma. RECOMMENDATION: 6 month follow-up. Multiple masses which are likely fibroadenom as were noted in the LEFT breast. Continued follow-up to document stability.
--- NOTE | 2019-12-30 06:57 | US_ITS ---
WS: [id number] ULTRASOUND-GUIDED RIGHT BREAST BIOPSY HISTORY: Abnormal mass with calcifications upper outer quadrant of the RIGHT breast at 10:00. COMPARISON: 12/26/2019 and 11/10/2019 Procedure, risks and complications are explained to the patient. Medications are reviewed. Consent is obtained. The mass in the RIGHT breast is localized with ultrasound. Mass along the 10:00 axis contains calcifi cations. Skin is cleansed with ChloraPrep and anesthetized with 1% buffered lidocaine. Small dermatom e is made. Under sterile conditions mass is biopsied with a 14-gauge Achieve needle. Multiple core bi opsies are performed. Material placed in formalin and sent to pathology for review. No complications encountered. Breast tissue marker (Bard ultrasound enhanced ribbon): Angle. Patient left the radiology suite with no complications. Patient is instructed to return to [facility] [place] or [facility] with any concerns. 1. Uncomplicated core needle biopsy soft tissue mass and calcifications 10:00 RIGHT breast. US/[place] [id number] IMPRESSION: PATHOLOGY: Ductal carcinoma in situ, moderate nuclear grade. RECOMMENDATION: Oncology follow-up.
== END 2019-12-30 06:43 | disposition home or self-care (01) ==
PROVIDERS: Visit Provider Pathology Anatomic Pathology & Clinical Pathology
DX: N63.25 Unspecified lump in the left breast, overlapping quadrants (principal); D05.11 Intraductal carcinoma in situ of right breast; N64.4 Mastodynia; D24.2 Benign neoplasm of left breast; N63.10 Unspecified lump in the right breast, unspecified quadrant
CPT/HCPCS: 19083; 19084; 88305

== ENCOUNTER 2020-01-18 06:56 | Outpatient (RCR) | payer MEDICARE, OTHER, SELFPAY ==
[2020-01-18 08:39] LABS: Basophils % 0.2 %; Eosinophils # 0.1 10^3/uL (0.0-0.8); Eosinophils % 0.6 %; Hematocrit 44.1 % (37.0-47.0); Hemoglobin 13.5 g/dL (11.5-15.3); Lymphocytes # 0.3 10^3/uL (0.8-4.8); Lymphocytes % 2.5 %; Mean Corpuscular HGB Conc 30.6 g/dL (30.0-36.0); Mean Corpuscular Hemoglobin 31.8 pg (28.0-34.0); Mean Platelet Volume 10.5 fL (7.4-10.4); Monocytes # 0.5 10^3/uL (0.2-0.9); Monocytes % 3.9 %; Neutrophils # 12.19 10^3/uL (1.8-7.7); Neutrophils % 92.3 %; Nucleated Red Blood Cells % 0 %; Platelet Count 212 10^3/cmm (130-400); Red Blood Count 4.24 10^6/uL (4.1-5.3); Red Cell Distribution Width 16.3 % (12.1-15.1); White Blood Count 13.2 10^3/uL (4.0-10.0)
[2020-01-18 08:49] LABS: Alanine Aminotransferase 12 U/L (0-33); Albumin Level 4.4 g/dL (3.5-5.2); Alkaline Phosphatase 68 IU/L (35-105); Anion Gap 17.1 (5-19); Aspartate Amino Transferase 13 U/L (0-32); Blood Urea Nitrogen 10 mg/dL (8-23); Calcium 9.3 mg/dL (8.5-10.5); Carbon Dioxide 26 mmol/L (22-29); Chloride 97 mmol/L (98-107); Globulin 2.7 g/dL (1.3-4.6); Glomerular Filtration Rate 83.2 mL/min (90-130); Glucose 146 mg/dL (65-115); Osmolality Calculated 281 mOsm/kg (285-295); Potassium 4.1 mmol/L (3.5-5.1); Sodium 136 mmol/L (136-145); Total Bilirubin 0.2 mg/dL (0.15-1.2); Total Protein 7.1 g/dL (6.6-8.7)
== END 2020-01-27 23:59 | disposition home or self-care (01) ==
LOC: ONCMED 06:56
PROVIDERS: Visit Provider Internal Medicine Hematology & Oncology
DX: C34.12 Malignant neoplasm of upper lobe, left bronchus or lung (principal)
CPT/HCPCS: 80053; 85025

== ENCOUNTER 2020-01-18 10:48 | Emergency (ER) | payer MEDICARE, OTHER, SELFPAY ==
[2020-01-18 10:53] VITALS: BP 157/76; PULSE 123; RESP 20; TEMP 38.1; O2SAT 83; BMI 29.0
[2020-01-18 11:00] VITALS: O2SAT 97
--- NOTE | 2020-01-18 11:04 | W.ED.FEVER ---
HPI - Fever General: Chief Complaint: Fever Stated Complaint: COVID TESTING Time Seen by Provider: 01/18/20 11:01 Source: patient, family and RN notes reviewed History of Present Illness: HPI Narrative: 69-year-old female with history of lung cancer last underwent chemo in October complains of a head cold that is gone into her chest for the last week. Coughing up green sputum has a stuffy nose. Did not know she had a fever until she got here. She supposed to be on oxygen at home but only uses it at night according to her daughter. She tells me she lost her sense of taste yesterday. Patient has not been out of the house or anywhere where she could be in contact with anybody that has coronavirus per patient and her daughter. No diarrhea. Associated symptoms: Reports nasal congestion; Deny abdominal pain, chills, chest pain, headache(s), nausea or vomiting Review of Systems General: Reports: 10 or more systems reviewed and unremarkable except in HPI and below Const: Denies: fever(s) or chills Eyes: Denies: change in vision ENMT: Reports: nasal congestion Card: Denies: chest pain Resp: Reports: dyspnea and productive cough GI: Denies: abdominal pain, nausea, vomiting or change in bowel habits : Denies: difficulty voiding Musc: Denies: muscle weakness Skin/Breast: Denies: rash Neuro: Denies: headache(s) Psych: Denies: hopelessness or suicidal ideation Endo: Denies: polyuria Gustabo/Lymph: Denies: easy bruising or easy bleeding All/Imm: Denies: urticaria PFSH ED PFSH: Medical History (Updated 01/18/20 @ 14:54 by Anna Marie Buchanan MD) Abnormal mammogram Hyperlipidemia Hypertension Lung cancer Port-A-Cath in place Surgical History History of colonoscopy History of ear surgery stampledectomy Family History Denies family history of Anesthesia complication Bleeding disorder Social History Smoking and tobacco status: current every day smoker cigarettes Packs smoked per day: 1.5 Second hand smoke exposure: Yes Alcohol intake: never Desire information about substance/drug rehabilitation?: No Adopted: No Caregiver/support person: Yes Lives independently: Yes Household members: spouse Housing: House Marital status: Highest education level completed: High School Graduate service: No Current occupational status: retired Current occupational exposures/hazards: No Pets and animals: No History of recent travel: No Sexually active: No Current gender identity: Female Radha/Jewish: Religious Special radha needs: No Financial difficulty paying for basics: Decline to Answer Physical Exam Const: COMMON NORMALS: no acute distress, patient oriented x3, alert and well nourished HENMT: COMMON NORMALS: normocephalic and Normal external nose present HEAD & SCALP: normocephalic NOSE: Normal external nose present MOUTH: no trismus Eye: COMMON NORMALS: EOMs intact bilaterally and conjunctivae normal CONJUNCTIVA: Yes conjunctivae normal Neck/C-Spine: COMMON NORMALS: full ROM, no lymphadenopathy and supple CERVICAL SPINE: Yes cervical ROM normal Lymph: LYMPHATIC: no lymphadenopathy noted Resp: COMMON NORMALS: normal respiratory effort, No retractions, No use of accessory muscles and clear to auscultation bilaterally EFFORT & INSPECTION: Yes able to speak in complete sentences AUSCULTATION: clear to auscultation bilaterally Cardio: COMMON NORMALS: regular rate and regular rhythm RATE: regular rate RHYTHM: regular rhythm GI: COMMON NORMALS: Normal to inspection, nondistended, normoactive bowel sounds present, Soft to palpation, non-tender and no masses INSPECTION: Yes normal to inspection AUSCULTATION: Yes normoactive bowel sounds PALPATION: Yes Soft to palpation, No Guarding due to palpation present (GI) and No Rigid due to palpation Back/Pelvis: OTHER: Normal range of motion Extremity: GENERAL: Yes normal exam except as noted Neuro: COMMON NORMALS: patient oriented x3 and CN's II-XII intact bilaterally SENSORIUM/ORIENTATION: Yes alert SPEECH: speech normal Psych: COMMON NORMALS: mental status grossly normal Skin: COMMON NORMALS: no rashes or lesions noted GENERAL SKIN EXAM: no rashes or lesions noted Course Vital Signs: Vital signs: Vital Signs Temperature 99.1 F 01/18/20 15:20 Pulse Rate 79 01/18/20 15:20 Respiratory Rate 31 H 01/18/20 15:20 Blood Pressure 129/60 01/18/20 15:20 Pulse Oximetry 96 01/18/20 15:20 MDM - Fever MDM Narrative: Medical decision making narrative: I reviewed the patient's x-ray, lab including ABG. Patient looks well and states that the Afrin has actually helped a lot. She is watching something on her phone currently and in no distress. Can speak in complete sentences and on 2 L of oxygen her sat is 97%. She tells me that if she can go home she will absolutely wear her oxygen at all times. She is not to smoke. I discussed her case with her oncologist Dr. Zhou who sent her here for COVID testing. I explained that the Coban test would not be back for a minimum of 24 hours. Patient would like to go home and I think this would be the safest place for her her pulse is 90 and blood pressure 110/63 she does not appear toxic or septic at this time. Since she is a smoker and has a new productive cough I will cover her with Levaquin. Dr. Zhou did not have any preference on any antibiotics and left that decision up to me. I had a long discussion with the patient that she needs to return to the ER if worse in any way and she could get into real trouble if she is not wearing her oxygen like she supposed to and she absolutely cannot wear her oxygen and smoke. Lab Data: Attestation: I reviewed the patient's lab results. Labs: Lab Results 01/18/20 01/18/20 01/18/20 Range/Units 11:25 11:53 11:53 WBC 12.3 H (4.0-10.0) 10^3/ uL RBC 4.10 (4.1-5.3) 10^6/u L Hgb 12.7 (11.5-15.3) g/dL Hct 40.5 (37.0-47.0) % MCV 98.8 (81-99) fL MCH 31.0 (28.0-34.0) pg MCHC 31.4 (30.0-36.0) g/dL RDW 16.3 H (12.1-15.1) % Plt Count 194 (130-400) 10^3/c mm MPV 10.4 (7.4-10.4) fL Neut % (Auto) 90.4 % Lymph % (Auto) 4.2 % [place] % (Auto) 3.9 % Eos % (Auto) 1.1 % Baso % (Auto) 0.2 % Neut # (Auto) 11.14 H (1.8-7.7) 10^3/u L Lymph # (Auto) 0.5 L (0.8-4.8) 10^3/u L [place] # (Auto) 0.5 (0.2-0.9) 10^3/u L Eos # (Auto) 0.1 (0.0-0.8) 10^3/u L Baso # (Auto) 0.0 (0.0-0.1) 10^3/u L Nucleated RBC % (a uto) 0 % Nucleated RBCs # 0.0 /100WBC Specimen Type Arterial Sample Site Radial, left ABG pH 7.45 (7.35-7.45) ABG pCO2 36.3 (35-45) mmHg ABG pO2 80.0 (80.0-100.0) mmH g ABG HCO3 25.2 (22-26) mmol/L ABG Base Excess 1.4 (-2.0-2.0) mmol/ L Fermin Test Pos Hematocrit 41.2 (37-47) % O2 Delivery Device Nc O2 Liters/Min 2.0 % Drain Tile Machine Operator ID monro Sodium (136-145) mmol/L Potassium (3.5-5.1) mmol/L Chloride (98-107) mmol/L Carbon Dioxide (22-29) mmol/L Anion Gap (5-19) BUN (8-23) mg/dL Creatinine (0.5-0.9) mg/dL GFR Calculation (90-130) mL/min Glucose (65-115) mg/dL Calculated Osmolal ity (285-295) mOsm/k g Lactic Acid 0.7 (0.5-2.2) mmol/L Calcium (8.5-10.5) mg/dL Total Bilirubin (0.15-1.2) mg/dL AST (0-32) U/L ALT (0-33) U/L Alkaline Phosphata se (35-105) IU/L NT-Pro-B Natriuret Pep (0-125) pg/mL Total Protein (6.6-8.7) g/dL Albumin (3.5-5.2) g/dL Globulin (1.3-4.6) g/dL Urine Color (Yellow) Urine Appearance (CLEAR) Urine pH (5-7) Ur Specific Gravit y (1.005-1.030) Urine Protein (Negative) Urine Glucose (UA) (Normal) Urine Ketones (Negative) Urine Blood (Negative) Urine Nitrate (Negative) Urine Bilirubin (NEGATIVE) Urine Urobilinogen (Negative) mg/dL Ur Leukocyte Marifer ase (Negative) Influenza Type A A g (Negative) Influenza Type B A g (Negative) 01/18/20 01/18/20 01/18/20 Range/Units 11:53 12:15 13:30 WBC (4.0-10.0) 10^3/ uL RBC (4.1-5.3) 10^6/u L Hgb (11.5-15.3) g/dL Hct (37.0-47.0) % MCV (81-99) fL MCH (28.0-34.0) pg MCHC (30.0-36.0) g/dL RDW (12.1-15.1) % Plt Count (130-400) 10^3/c mm MPV (7.4-10.4) fL Neut % (Auto) % Lymph % (Auto) % [place] % (Auto) % Eos % (Auto) % Baso % (Auto) % Neut # (Auto) (1.8-7.7) 10^3/u L Lymph # (Auto) (0.8-4.8) 10^3/u L [place] # (Auto) (0.2-0.9) 10^3/u L Eos # (Auto) (0.0-0.8) 10^3/u L Baso # (Auto) (0.0-0.1) 10^3/u L Nucleated RBC % (a uto) % Nucleated RBCs # /100WBC Specimen Type Sample Site ABG pH (7.35-7.45) ABG pCO2 (35-45) mmHg ABG pO2 (80.0-100.0) mmH g ABG HCO3 (22-26) mmol/L ABG Base Excess (-2.0-2.0) mmol/ L Fermin Test Hematocrit (37-47) % O2 Delivery Device O2 Liters/Min % Drain Tile Machine Operator ID Sodium 137 (136-145) mmol/L Potassium 4.1 (3.5-5.1) mmol/L Chloride 98 (98-107) mmol/L Carbon Dioxide 26 (22-29) mmol/L Anion Gap 17.1 (5-19) BUN 11 (8-23) mg/dL Creatinine 0.5 (0.5-0.9) mg/dL GFR Calculation 122.7 (90-130) mL/min Glucose 98 (65-115) mg/dL Calculated Osmolal ity 280 L (285-295) mOsm/k g Lactic Acid (0.5-2.2) mmol/L Calcium 9.5 (8.5-10.5) mg/dL Total Bilirubin 0.2 (0.15-1.2) mg/dL AST 12 (0-32) U/L ALT 11 (0-33) U/L Alkaline Phosphata se 62 (35-105) IU/L NT-Pro-B Natriuret Pep 578 H (0-125) pg/mL Total Protein 6.9 (6.6-8.7) g/dL Albumin 4.4 (3.5-5.2) g/dL Globulin 2.5 (1.3-4.6) g/dL Urine Color Yellow (Yellow) Urine Appearance Clear (CLEAR) Urine pH 6.5 (5-7) Ur Specific Gravit y 1.010 (1.005-1.030) Urine Protein Neg (Negative) Urine Glucose (UA) Norm (Normal) Urine Ketones Negative (Negative) Urine Blood Neg (Negative) Urine Nitrate Negative (Negative) Urine Bilirubin Neg (NEGATIVE) Urine Urobilinogen Neg (Negative) mg/dL Ur Leukocyte Marifer ase Negative (Negative) Influenza Type A A g Negative (Negative) Influenza Type B A g Negative (Negative) Imaging Data^: CXR: Radiologist's impression: [address] [address] XRay Report Signed Patient: Bladimir Harris #: [id number] : 2Acct#:[id number] Age/Sex: 69 / FADM Date: 01/18/20 Loc: ERRoom/Bed: Attending Dr: Ordering Provider/Ordering MD: Anna Marie Buchanan MD Date of Service: 01/18/20 Procedure(s): XR chest 1V portable [id number] Accession Number(s): [id number] Report Number: [id number] WS: [id number] PORTABLE CHEST HISTORY: Cough and fever COMPARISON: 09/26/2019 Port-A-Cath to the RIGHT subclavian vein with tip in the distal SVC. Mild hyperexpansion. Mild progression of the diffuse increased interstitial markings throughout both lungs suggesting fluid overload. No focal consolidation. No pleural effusion or pneumothorax. Cardiac size: Normal. Mediastinum/Aorta: Mild atherosclerosis aorta. LEFT rotator cuff calcific tendinitis. XR/XR chest 1V portable [id number] IMPRESSION: Mild interstitial edema new since 09/26/2019. No pneumonia. Dictated By:Madelaine Miller DO Signed By:Madelaine Miller DOSigned Date/Time:01/18/20 1142 DD/ 1141 Discharge Plan Discharge Patient Disposition: Home, Self-Care Clinical Impression: Bronchitis Fever Qualifiers: Fever type: unspecified Qualified Code(s): R50.9 - Fever, unspecified Condition: Stable Prescriptions: New Levaquin 750 mg tablet 750 mg PO DAILY 5 Days Qty: 5 RF: 0 No Action aspirin 81 mg tablet,delayed release (DR/EC) 81 mg PO DAILY RF: 0 Hold Instructions: Resume on 08/12/19. simvastatin 20 mg tablet 20 mg PO DAILY RF: 0 hydrochlorothiazide 12.5 mg tablet 12.5 mg PO DAILY RF: 0 multivitamin Tablet 1 tab PO DAILY RF: 0 ascorbic acid (vitamin C) [Vitamin C] 500 mg Tablet 500 mg PO DAILY RF: 0 cholecalciferol (vitamin D3) [Vitamin D3] 2,000 unit Tablet 2,000 unit PO DAILY RF: 0 Patient Instructions: Fever in Adults (ED), Acute Bronchitis (ED) Activity Restrictions/Additional Instructions: You have already been given your antibiotic dose here in the ER today you can have your next dose tomorrow. You need to wear your oxygen at all times and not smoke. Like we discussed if you do not wear your oxygen you could end up coming back to the hospital and having respiratory failure. Return to the ER anytime if you have worsening of your symptoms. You should continue to isolate yourself from others especially until your COVID test comes back somebody will call you with the results from the hospital And you absolutely cannot wear your oxygen and smoke. Keep your nicotine patch on Discharge Date/Time: 01/18/20 16:20 Coding Level of Care Code ED Cut Out Stitcher for Isabelleg Fwd Exam Comprehensive
--- NOTE | 2020-01-18 11:07 | XR_ITS ---
WS: [id number] PORTABLE CHEST HISTORY: Cough and fever COMPARISON: 09/26/2019 Port-A-Cath to the RIGHT subclavian vein with tip in the distal SVC. Mild hyperexpansion. Mild progression of the diffuse increased interstitial markings throughout both lungs suggesting fluid overload. No focal consolidation. No pleural effusion or pneumothorax. Cardiac size: Normal. Mediastinum/Aorta: Mild atherosclerosis aorta. LEFT rotator cuff calcific tendinitis. XR/XR chest 1V portable [id number] IMPRESSION: Mild interstitial edema new since 09/26/2019. No pneumonia.
[2020-01-18 11:16] VITALS: O2SAT 97
--- NOTE | 2020-01-18 11:19 | PC.NURSE ---
portable xray at bedside
[2020-01-18 11:39] LABS: ABG PCO2 36.3 mmHg (35-45); ABG PH Result 7.45 (7.35-7.45); Arterial Blood Gas Hematocrit 41.2 % (37-47); Base Excess ABG 1.4 mmol/L (-2.0-2.0); Blood Gas Allen Test Pos; Blood Gas Sample Site Radial, left; Blood Gas Sample Type Arterial; HCO3 ABG 25.2 mmol/L (22-26); Oxygen Device NC
[2020-01-18 11:56] VITALS: BP 123/70; PULSE 108; RESP 24; O2SAT 94
[2020-01-18 12:02] LABS: Basophils % 0.2 %; Eosinophils # 0.1 10^3/uL (0.0-0.8); Eosinophils % 1.1 %; Hematocrit 40.5 % (37.0-47.0); Hemoglobin 12.7 g/dL (11.5-15.3); Lymphocytes # 0.5 10^3/uL (0.8-4.8); Lymphocytes % 4.2 %; Mean Corpuscular HGB Conc 31.4 g/dL (30.0-36.0); Mean Corpuscular Volume 98.8 fL (81-99); Mean Platelet Volume 10.4 fL (7.4-10.4); Monocytes # 0.5 10^3/uL (0.2-0.9); Monocytes % 3.9 %; Neutrophils # 11.14 10^3/uL (1.8-7.7); Neutrophils % 90.4 %; Nucleated Red Blood Cells % 0 %; Platelet Count 194 10^3/cmm (130-400); Red Cell Distribution Width 16.3 % (12.1-15.1); White Blood Count 12.3 10^3/uL (4.0-10.0)
[2020-01-18] MEDS: acetaminophen 325 mg Tablet 650 MG PO (12:06)
[2020-01-18] MEDS: nicotine 21 mg Patch 1 PATCH TRANSDERMA (12:07)
[2020-01-18] MEDS: oxymetazoline 0.05% Nasal Spray 15 mL 2 SPRAY NOSTRIL-B (12:07)
[2020-01-18] MEDS: sodium chloride 0.9% 500 ML IV (12:08)
--- NOTE | 2020-01-18 12:20 | PC.NURSE ---
covid swabbed at 1215. droplet precautions initiated
[2020-01-18 12:21] LABS: Lactic Sepsis W/Reflex 0.7 mmol/L (0.5-2.2)
[2020-01-18 12:31] LABS: Alanine Aminotransferase 11 U/L (0-33); Albumin Level 4.4 g/dL (3.5-5.2); Alkaline Phosphatase 62 IU/L (35-105); Anion Gap 17.1 (5-19); Aspartate Amino Transferase 12 U/L (0-32); Blood Urea Nitrogen 11 mg/dL (8-23); Calcium 9.5 mg/dL (8.5-10.5); Carbon Dioxide 26 mmol/L (22-29); Chloride 98 mmol/L (98-107); Globulin 2.5 g/dL (1.3-4.6); Glomerular Filtration Rate 122.7 mL/min (90-130); Glucose 98 mg/dL (65-115); NT Pro B Type Natriuretic Pept 578 pg/mL (0-125); Osmolality Calculated 280 mOsm/kg (285-295); Potassium 4.1 mmol/L (3.5-5.1); Sodium 137 mmol/L (136-145); Total Bilirubin 0.2 mg/dL (0.15-1.2); Total Protein 6.9 g/dL (6.6-8.7)
[2020-01-18 13:33] VITALS: BP 120/62; PULSE 100; RESP 24; O2SAT 94
[2020-01-18 13:38] LABS: Add Urine Microscopic? NO
[2020-01-18 14:08] LABS: Bilirubin Urine Neg (NEGATIVE); Blood Urine Neg (Negative); Glucose Urine UA Norm (Normal); Ketones Urine Negative (Negative); Leukocyte Esterase Urine Negative (Negative); Nitrate Urine Negative (Negative); Protein Urine Neg (Negative); Urine Appearance Clear (CLEAR); Urine Color Yellow (Yellow); Urobilinogen Urine Neg (Negative); pH Urine 6.5 (5-7)
[2020-01-18 14:10] LABS: Influenza A by IFA Negative (Negative); Influenza B by IFA Negative (Negative)
[2020-01-18 15:20] VITALS: BP 129/60; PULSE 79; RESP 31; TEMP 37.3; O2SAT 96
[2020-01-18] MEDS: levoFLOXacin 750 mg Tablet PO (15:31)
[2020-01-20 07:16] LABS: Coronavirus Lab Test PTC NOT DETECTED
--- NOTE | 2020-01-20 08:18 | PC.NURSE ---
pt given results of neg COVID test
== END 2020-01-18 16:20 | disposition home or self-care (01) ==
PROVIDERS: Emergency Provider Emergency Medicine
DX: J40 Bronchitis, not specified as acute or chronic (principal); Z79.82 Long term (current) use of aspirin; E78.5 Hyperlipidemia, unspecified; I10 Essential (primary) hypertension; Z85.118 Personal history of other malignant neoplasm of bronchus and lung; F17.210 Nicotine dependence, cigarettes, uncomplicated
CPT/HCPCS: 12345; 36600; 71045; 80053; 81003; 82803; 83605; 83880; 85025; 87040; 87635; 87804; 96360; 96361; 99284; J7040

== ENCOUNTER 2020-03-29 11:27 | Outpatient (CLI) | payer MEDICARE, OTHER, SELFPAY ==
--- NOTE | 2020-03-29 13:04 | ONC FU_ITS ---
Dr. Zhou follow up note Patient: Moraima Harris Unit #: [id number]: [id number] Dicatated By: Barbara Zhou M.D.Date of Visit:Mar 29, 2020 Onc Med Follow-up/Prog Note History of Present Illness: Mrs. Harris is a 69-year-old female with history of COPD, chronic smoking and exercise hypoxemia. She recently underwent CT scan of chest which showed 2 separate pulmonary nodules e.g. 1 in the left upper lobe and one in the left lower lobe. Subsequently she underwent CT PET scan on 05/10/2019 which confirmed multiple left lung nodules with SUV of 9.2 the largest of disease in the posterior aspect of left upper lobe measuring up to 0.8 x 1.3 cm. As per discussion with Dr. Orourke radiation oncologist, there are 3 small separate nodules in the left upper lobe and one in the left lower lobe and because of location, SBRT can be performed. CT PET scan showed no mediastinal or hilar lymphadenopathy or any distance metastatic disease. Mrs Harris underwent CT-guided biopsy of left upper lobe nodule on 06/01/2019. 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 Because of underlying lung condition, patient was not a candidate for surgery so she was referred to radiation/medical oncology for evaluation and management.Cancer type ID was done on 06/01/2019 showed squamous cell carcinoma lung as a primary within 77% probability. Mrs Harris denies any history of hemoptysis or hematemesis. She denies any history of bony pains; headaches; blurred vision or double vision. She has history of brain tumor for which she underwent yearly MRI scan for 5-6 years without any progression as per patient at that time she was told it could be a benign lesion or she may have born with it. She also has a skin lesion in left subaxillary area for which she was supposed to see director of music but she canceled her appointment once she found out about lung cancer. Mrs Harris denies any weight loss. She denies any jaundice or any history of sore throat or dysphagia. She denies any history of vaginal bleeding. Mrs Harris is a chronic smoker and smokes about pack a day-currently. Status post SB RT to left upper lobe lung lesion from 07/13/2019 through 07/22/2019 Status post SB RT to left lower lobe of lung nodule from 07/25/2019 and completed on 08/02/2019 tolerated SB RT to left lung nodules well. After completion of the SBRT, Mrs Harris was offered further treatment with chemotherapy consisting of Carboplatin/gemcitabine. The carboplatin is day 1 and gemcitabine is day 1 and 8. She began her first cycle on August 16, 2019.and completed 4 cycles,on 11/15/2019 Follow-up CT scan of chest done on 09/14/2019 showed previously described FDG avid nodules in the left upper lobe and left lower lobe have essentially resolved with a small amount of residual parenchymal tissue. No mediastinal or hilar lymphadenopathy. Small esophageal hiatal hernia. Low-attenuation lesion in the spleen measuring 8mm nonspecific but may represent benign cavernous angioma. CT scan of the neck done on 10/05/2019 showed spongiform inferior left thyroid nodule with a maximum diameter 1.4 cm. Recommended yearly ultrasound and if change in size, we'll consider biopsy otherwise no suspicious or concerning nodules seen in thyroid Patient has history of left breast outer part biopsy done 20 years ago, as per patient it was benign .Follow-up mammogram done on 11/10/2019 showed increased soft tissue and calcification in right upper quadrant and scattered calcifications in the left breast, further imaging recommended Patient underwent ultrasound bilateral breast on December 26, 2019 which showed, right breast shows mixed echogenicity tubular structure corresponding to mammographic abnormality of of calcification in the mass and left breast showed at 9 o'clock position 1.4 x 0.9 x 1.5 cm nodule, case was discussed with Dr. 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 Patient states she has seen surgeon and now lumpectomy is under consideration Medications: Cholecalciferol Tablet Oral, Furosemide 1 Tablet (of 20 mg) Oral daily, hydroCHLOROthiazide 12.5 mg (of 12.5 mg) Tablet Oral daily, Potassium Chloride ER 1 Tablet (of 10 meq) Tablet, controlled release Oral daily, Simvastatin 20 mg (of 20 mg) Tablet Oral daily, Vitamin C Capsule Oral Allergies: No Known Allergies. Review of Systems: Constitutional - Appetite is good and weight is stable. No fever, chills, hot flashes, or night sweats. Energy level is fair, ENMT - No sinus congestion/drainage. No mouth sores. No sore throat or difficulty swallowing, Hematologic/Lymphatic - No abnormal bruising or bleeding, Respiratory - No shortness of breath. No cough. No pleuritic pain or hemoptysis, Cardiovascular - No angina pain. No palpitations, Gastrointestinal - No nausea or vomiting. No heartburn or acid reflux. No diarrhea or constipation. No blood in the stool or black stools, Genitourinary (F) - No dysuria or hematuria. No urinary frequency. No urgency or incontinence, Musculoskeletal - No joint or bone pain, Neurologic - No headache or dizziness. No numbness/paresthesias or other focal neurologic symptoms, Psychiatric - No anxiety or depression. No insomnia. Vital Signs: Performed on Mar 29, 2020 11:35 Height - 61.00 in Weight - 152.0 lbs (LOW) BSA - 1.68 sq.m BMI - 28.72 Temperature - 98.2 F (LOW) Pulse - 86 /min Respiration - 22 /min BP - 133/78 mm(hg) O2 Sat - 93 % (LOW) Pain - 0 Performance Status: 0 - Fully active, able to carry on all predisease activities without restrictions. (ECOG) Physical Examination: ENMT - No mouth sores, no thrush, no jaundice, Respiratory - Lungs are clear to auscultation, Cardiovascular - Regular rate and rhythm of heart, Abdomen - Soft, bowel sounds present, Extremities - No visible edema. Lab/Imaging: Test performed on Jan 18, 2020 08:04 Sodium 136 mmol/L Potassium 4.1 mmol/L Chloride 97 mmol/L CO2 26 mmol/L Anion Gap 17.1 BUN 10 mg/dL Creatinine 0.7 mg/dL Cr Clearance (Est) 86.4800 mL/min eGFR 83.2 mL/min Glucose 146 mg/dL Calcium 9.3 mg/dL Protein, Total 7.1 g/dL Albumin 4.4 g/dL Globulin 2.7 g/dL Bilirubin, Total 0.2 mg/dL ALT (SGPT) 12 U/L AST (SGOT) 13 U/L Alkaline Phosphatase 68 IU/L WBC 13.2 10 3/uL RBC 4.24 10 6/uL HGB 13.5 g/dL HCT 44.1 % MCV 104.0 fL MCH 31.8 pg MCHC 30.6 g/dL RDW 16.3 % Platelet Count 212 10 3/cmm MPV 10.5 fL Neutrophils 12.19 10 3/uL Lymphocytes 0.3 10 3/uL Monocytes 0.5 10 3/uL Eosinophils 0.1 10 3/uL Basophils 0.0 10 3/uL Neutrophil % 92.3 % Lymphocyte % 2.5 % Monocyte % 3.9 % Eosinophil % 0.6 % Basophils % 0.2 % NRBC % 0 % Test performed on November 22, 2019 10:36 CBC Slide Review Slide Review Perform SLIDE REVIEW AGREES WITH AUTOMATED RESULTS Test performed on October 28, 2019 10:45 Manual Lymphocytes 31.4 % Manual Monocytes 6.0 % Manual Eosinophils 0.4 % Manual Basophils 0.8 % Impression: DCIS involving right breast status post ultrasound-guided needle biopsy done on December 30, 2019, ER/MN positive HER-2/jorge negative Left breast biopsy done on December 30, 2019 shows fibroadenoma Moderately differentiated squamous cell carcinoma per CT-guided biopsy of left upper lobe lung done on 06/01/2019 Immunohistochemistry showed positive for p40 and negative for TTF-1. CT PET scan done on 05/10/2019 showed multiple hypermetabolic nodules in left lung e.g. 3 closely related nodules in upper left lobe largest being 0.8 x 1.3 cm and one in the left lower lobe. Cancer type ID confirmed lung being primary at 77% probability Clinical stage T4 ( lesions in ipsilateral separate lobes) NX M0 stage IIIa COPD, exercise hypoxemia, chronic smoking Mrs Byse tolerated SB RT to left upper lobe lung nodules as well as left lower lobe lung nodule well. She had been advised to pursue further treatment Earlier patient required cancer type ID to confirm the primary as with clinical presentation metastatic disease was one of the possibility but cancer type ID confirmed pulmonary being primary with 77% probability, we will also consider PDL 1 status and molecular profiling of the tumor discussed the role of adjuvant chemotherapy as patient was not a candidate for surgery but underwent SB RT. recommended systemic chemotherapy with carboplatin AUC 5 on day 1 and gemcitabine 1,000mg per meter square day 1 and day 8 and repeat every 21 days ???4 cycles. She began her first cycle of carboplatin gemcitabine on August 16, 2019.and completed 4 cycles on 11/15/2019 abnormal mammogram done on 11/10/2019 Plan: Discussed with patient regarding her right breast biopsy report which confirmed ductal carcinoma in situ and left breast biopsy showed fibroadenoma, patient has seen and now right breast lumpectomy is under consideration. Patient will return to clinic after lumpectomy for evaluation if there is no evidence of invasive component, will consider hormonal therapy for 5 years as DCIS is strongly ER MN positive. And also refer her to radiation oncology for postlumpectomy radiation therapy. Patient return to clinic 2 weeks after lumpectomy As far as left lung cancer is concerned, patient has no signs symptom suggestive of disease progression, and near future we will consider follow-up CT scan of chest. Signed By: Barbara Zhou M.D. <<Signature on File>>
== END 2020-03-29 11:28 | disposition home or self-care (01) ==
LOC: ONCMED 11:31
PROVIDERS: Visit Provider Internal Medicine Hematology & Oncology
DX: C34.12 Malignant neoplasm of upper lobe, left bronchus or lung (principal); J44.9 Chronic obstructive pulmonary disease, unspecified; R09.02 Hypoxemia; F17.210 Nicotine dependence, cigarettes, uncomplicated; D05.12 Intraductal carcinoma in situ of left breast; Z17.0 Estrogen receptor positive status [ER+]
CPT/HCPCS: 99214

== ENCOUNTER → 2020-04-12 11:44 | Outpatient (BNVA) | payer MEDICARE, OTHER, SELFPAY | PROVIDERS: Visit Provider Surgery | DX: Z11.59 Encounter for screening for other viral diseases (principal); D05.10 Intraductal carcinoma in situ of unspecified breast | CPT/HCPCS: 87635 ==

== ENCOUNTER 2020-04-17 07:37 | Day surgery (SDC) | payer MEDICARE, OTHER, SELFPAY ==
[2020-04-16 08:49] VITALS: BMI 28.7
--- NOTE | 2020-04-17 | US_ITS ---
WS: [id number] INDICATION: Right breast needle localization TECHNIQUE: Ultrasound-guided needle localization FINDINGS: The procedure including risk benefits and complications were discussed with the patient who agreed to proceed. Using sterile technique patient was prepped and draped in usual sterile fashion. Timeout was performed. After 1% lidocaine using ultrasound guidance a 7 cm Kopan's needle was advance d through the right breast lesion at the 10:00 position. No immediate complications. Surgical specimen demonstrates gross total resection of the lesion with intact wire. US/US breast surgical specimen IMPRESSION: 1. Uncomplicated ultrasound-guided needle localization right breast lesion at the 10:00 position 2. Surgical specimen demonstrates gross total resection of the lesion with int act wire.
[2020-04-17 07:50] VITALS: BP 155/86; PULSE 79; RESP 18; TEMP 36.1; O2SAT 92
--- NOTE | 2020-04-17 07:52 | US_ITS ---
WS: [id number] INDICATION: Right breast needle localization TECHNIQUE: Ultrasound-guided needle localization FINDINGS: The procedure including risk benefits and complications were discussed with the patient who agreed to proceed. Using sterile technique patient was prepped and draped in usual sterile fashion. Timeout was performed. After 1% lidocaine using ultrasound guidance a 7 cm Kopan's needle was advance d through the right breast lesion at the 10:00 position. No immediate complications. Surgical specimen demonstrates gross total resection of the lesion with intact wire. US/[place] [id number] IMPRESSION: 1. Uncomplicated ultrasound-guided needle localization right breast lesion at the 10:00 position 2. Surgical specimen demonstrates gross total resection of the lesion with int act wire.
[2020-04-17] MEDS: sodium chloride 0.9% 1,000 ML 30 ML IV (09:18)
--- NOTE | 2020-04-17 09:43 | ANES.PREANE2 ---
Pre-Anesthetic Assessment Pre-Anesthetic Assessment: Height/Weight: Height 1.55 m Weight 68.946 kg Preop Diagnosis: Right breast cancer Proposed Procedure: Operation Date: 04/17/20 09:50 Proposed Procedures p Breast Biopsy Needle Localization(Right) - Deandre Gonsalez MD s Breast Biopsy lumpectomy(Right) - Deandre Gonsalez MD Familial anesthetic complications: none Was Beta Roverto taken within 24 hours: N/A Last intake: Intake Last Liquid Date 04/16/20 Last Liquid Time 21:00 Last Solid Date 04/16/20 Last Solid Time 21:00 Social: Social History: Tobacco and No alcohol Exam: Pre-Anes Outpt Exam: alert, oriented x 3, clear to auscultation bilaterally and regular rate & rhythm Airway: Cervical ROM: WNL MP: 3 Dentition: False Pulmonary: Pulmonary: COPD and Sleep apnea CV/HEM: CV/HEM: CHF Anesthetic Plan: ASA status: 3 Risk of > 500 ml blood loss (7ml/kg in children): No Meds/Allergies Current Medications: Current Medications Generic Name Dose Route Start Last Admin Trade Name Freq PRN Reason Stop Dose Admin Sodium Chloride 1,000 mls @ 30 ml s/hr 04/17/20 07:45 04/17/20 09:18 Sodium Chloride 0.9% IV 04/18/20 07:44 30 mls/hr .Q24H NYLA Administration PFSH Anesthesia PFSH: Medical History Abnormal mammogram Hyperlipidemia Hypertension Lung cancer Port-A-Cath in place Surgical History History of colonoscopy History of ear surgery stampledectomy Family History Denies family history of Anesthesia complication Bleeding disorder Social History Smoking and tobacco status: current every day smoker cigarettes Packs smoked per day: 1.5 Second hand smoke exposure: Yes Alcohol intake: never Desire information about substance/drug rehabilitation?: No Adopted: No Caregiver/support person: Yes Lives independently: Yes Household members: spouse Housing: House Marital status: Highest education level completed: High School Graduate service: No Current occupational status: retired Current occupational exposures/hazards: No Pets and animals: No History of recent travel: No Sexually active: No Current gender identity: Female Radha/Confucianism: Mormonism Special radha needs: No Financial difficulty paying for basics: Decline to Answer Data Anesthesia Cardiac Studies: No Data to Display
--- NOTE | 2020-04-17 11:07 | W.PM.OPSUD ---
Surgery/Procedure H&P Update DATE OF PROCEDURE: April 17, 2020 DATE H&P PERFORMED: 04/04/20 H&P UPDATE INFORMATION: I have reviewed H&P completed within last 30 days, I have examined patient prior to procedure and No changes to prior documentation PREOP DIAGNOSIS: Right breast cancer PRIMARY INDICATION FOR PROCEDURE: The same PLANNED PROCEDURE: Operation Date: 04/17/20 09:50 Proposed Procedures p Breast Biopsy Needle Localization(Right) - Deandre Gonsalez MD s Breast Biopsy lumpectomy(Right) - Deandre Gonsalez MD
[2020-04-17] MEDS: lidocaine 2% INJ 20 mL INJECTION (12:28)
--- NOTE | 2020-04-17 12:38 | P.OP_ITS ---
Operative Report Date of procedure: April 17, 2020 Pre-op Diagnosis: Right breast mass Post-op diagnosis: same Post-op Diagnosis: Needle localization with right breast mass Procedure Done: Right partial mastectomy with needle localization Implants: Multiple medium size clips at the rodriguez of the cavity as well as the bottom Specimens removed/disposition: Partial mastectomy oriented with short suture superior and long sutures Infero-lateral and needle localization points anterior Surgeon: Deandre Gonsalez Dehydrating Press Operator: Surgical morgan Aj and Galilea/Darcy Circulating nurse Kiara Anesthesia: General (LMA orchard sprayer Ofelia) Estimated blood loss (mL): 10 Condition: stable Disposition: same day Brief History: This is a pleasant 69 years old female patient presented with abnormal mammographic abnormality and previous biopsy showed DCIS further counseling of the patient was for needle localization and lumpectomy and she did agree to proceed accordingly. Informed consent per chart Procedure: Right partial mastectomy with needle localization. After patient undergone a needle localization at Radiology Department under ultrasound-guidance. After identifying the patient holding area, the right breast was marked before the procedure by myself, patient was then taken to the operative suite, was placed in supine position, intubated by anesthesia in the fotm of LMA, prophylactic IV antibiotics were given per protocol, right arm was placed in 90? to her body, I was able to take down the tape and dressing on top of the wire without jeopardizing it ,prep and drape of the right pectoralis region was done under the usual sterile technique. Time-out was done verifying the patient's name/date of /planned procedure and destination after the procedure, all were in agreement. After identifying the direction of the wire on the ultrasound and further discussing the case with Dr. Spears prior to surgery. I did perform a transverse incision at the site of entrance of the needle used for the localization , dissection was carried on using electrocautery. The localization wire was grasped and pulled into the incision and dissection continued towards the tip of the wire. The breast tissue containing sonographic abnormality was grasped with Allis forceps and using electrocautery the specimen was dissected free from the surrounding tissue.good margin of normal breast tissue surrounding the mass and and the specimen was taken out and passed to the circulating nurse to send for ultrasound and pathology. Specimen was oriented with short suture superior and long suture left Inferolateral Later we got the clearance from radiology department that the sonographic abnormality was all included in the specimen Thorough irrigation of the cavity was done and hemostasis, followed by deep dermal closure by 2-0 Vicryl, followed by 3 oh deep subdermal, then 4-0 Monocryl for skin closure then Mastisol and Steri-Strips Lidocaine 2% was injected at the site of the incision. Pressure dressing was applied followed by fluffs and a sports bra Patient tolerated the procedure well, count of instruments and sponges were completed at the end of the procedure. And then patient was taken to the recovery area in stable condition after extubation. I was present for the whole entire procedure
[2020-04-17 12:50] VITALS: BP 136/80; PULSE 74; RESP 18; TEMP 36.3; O2SAT 97
[2020-04-17 12:55] VITALS: BP 138/71; PULSE 79; RESP 20; O2SAT 98
[2020-04-17 13:00] VITALS: BP 120/76; PULSE 77; RESP 16; O2SAT 94
[2020-04-17 13:05] VITALS: BP 121/59; PULSE 72; RESP 16; TEMP 36.4; O2SAT 93
[2020-04-17 13:19] VITALS: BP 129/71; PULSE 72; RESP 18; TEMP 36.4; O2SAT 96
== END 2020-04-17 13:51 | disposition home or self-care (01) ==
PROVIDERS: Visit Provider Surgery
PROC: (CPT 19301; principal; 2020-04-17 09:50)
PROC: (CPT 19303; 2020-04-17 09:50)
DX: C50.911 Malignant neoplasm of unspecified site of right female breast (principal); J44.9 Chronic obstructive pulmonary disease, unspecified; G47.30 Sleep apnea, unspecified; I11.0 Hypertensive heart disease with heart failure; I50.9 Heart failure, unspecified; E78.5 Hyperlipidemia, unspecified; F17.210 Nicotine dependence, cigarettes, uncomplicated; Z79.82 Long term (current) use of aspirin
CPT/HCPCS: 19301; 12345; 19285; 96365; J0131; J0690; J2405; J2704; J3010; J7030

== ENCOUNTER 2020-05-10 08:46 | Outpatient (CLI) | payer MEDICARE, OTHER, SELFPAY ==
[2020-05-10 09:37] LABS: Basophils % 0.6 %; Eosinophils % 0.6 %; Hematocrit 42.6 % (37.0-47.0); Lymphocytes # 1.3 10^3/uL (0.8-4.8); Mean Corpuscular HGB Conc 32.9 g/dL (30.0-36.0); Mean Corpuscular Hemoglobin 30.9 pg (28.0-34.0); Monocytes # 0.4 10^3/uL (0.2-0.9); Monocytes % 8.2 %; Neutrophils # 3.13 10^3/uL (1.8-7.7); Nucleated Red Blood Cells % 0 %; Platelet Count 207 10^3/cmm (130-400); Red Blood Count 4.53 10^6/uL (4.1-5.3); Red Cell Distribution Width 17.2 % (12.1-15.1); White Blood Count 4.9 10^3/uL (4.0-10.0)
[2020-05-10 09:59] LABS: Alanine Aminotransferase 10 U/L (0-33); Albumin Level 4.3 g/dL (3.5-5.2); Alkaline Phosphatase 55 IU/L (35-105); Anion Gap 14.8 (5-19); Aspartate Amino Transferase 11 U/L (0-32); Blood Urea Nitrogen 15 mg/dL (8-23); Calcium 9.2 mg/dL (8.5-10.5); Carbon Dioxide 27 mmol/L (22-29); Chloride 104 mmol/L (98-107); Globulin 2.3 g/dL (1.3-4.6); Glomerular Filtration Rate 122.7 mL/min (90-130); Glucose 86 mg/dL (65-115); Osmolality Calculated 294 mOsm/kg (285-295); Potassium 3.8 mmol/L (3.5-5.1); Sodium 142 mmol/L (136-145); Total Bilirubin 0.2 mg/dL (0.15-1.2); Total Protein 6.6 g/dL (6.6-8.7)
== END 2020-05-10 08:47 | disposition home or self-care (01) ==
PROVIDERS: Visit Provider Internal Medicine Hematology & Oncology
DX: C34.12 Malignant neoplasm of upper lobe, left bronchus or lung (principal)
CPT/HCPCS: 36591; 80053; 85025

== ENCOUNTER 2020-05-11 05:44 | Outpatient (CLI) | payer MEDICARE, OTHER, SELFPAY ==
--- NOTE | 2020-05-11 10:56 | ONC FU_ITS ---
Dr. Zhou follow up note Patient: Moraima Harris Unit #: [id number]: [id number] Dicatated By: Barbara Zhou M.D.Date of Visit:May 11, 2020 Onc Med Follow-up/Prog Note History of Present Illness: Mrs. Harris is a 69-year-old female with history of COPD, chronic smoking and exercise hypoxemia. She recently underwent CT scan of chest which showed 2 separate pulmonary nodules e.g. 1 in the left upper lobe and one in the left lower lobe. Subsequently she underwent CT PET scan on 05/10/2019 which confirmed multiple left lung nodules with SUV of 9.2 the largest of disease in the posterior aspect of left upper lobe measuring up to 0.8 x 1.3 cm. As per discussion with Dr. Orourke radiation oncologist, there are 3 small separate nodules in the left upper lobe and one in the left lower lobe and because of location, SBRT can be performed. CT PET scan showed no mediastinal or hilar lymphadenopathy or any distance metastatic disease. Mrs Harris underwent CT-guided biopsy of left upper lobe nodule on 06/01/2019. 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 Because of underlying lung condition, patient was not a candidate for surgery so she was referred to radiation/medical oncology for evaluation and management.Cancer type ID was done on 06/01/2019 showed squamous cell carcinoma lung as a primary within 77% probability. Mrs Harris denies any history of hemoptysis or hematemesis. She denies any history of bony pains; headaches; blurred vision or double vision. She has history of brain tumor for which she underwent yearly MRI scan for 5-6 years without any progression as per patient at that time she was told it could be a benign lesion or she may have born with it. She also has a skin lesion in left subaxillary area for which she was supposed to see commercial field inspector but she canceled her appointment once she found out about lung cancer. Mrs Harris denies any weight loss. She denies any jaundice or any history of sore throat or dysphagia. She denies any history of vaginal bleeding. Mrs Harris is a chronic smoker and smokes about pack a day-currently. Status post SB RT to left upper lobe lung lesion from 07/13/2019 through 07/22/2019 Status post SB RT to left lower lobe of lung nodule from 07/25/2019 and completed on 08/02/2019 tolerated SB RT to left lung nodules well. After completion of the SBRT, Mrs Harris was offered further treatment with chemotherapy consisting of Carboplatin/gemcitabine. The carboplatin is day 1 and gemcitabine is day 1 and 8. She began her first cycle on August 16, 2019.and completed 4 cycles,on 11/15/2019 Follow-up CT scan of chest done on 09/14/2019 showed previously described FDG avid nodules in the left upper lobe and left lower lobe have essentially resolved with a small amount of residual parenchymal tissue. No mediastinal or hilar lymphadenopathy. Small esophageal hiatal hernia. Low-attenuation lesion in the spleen measuring 8mm nonspecific but may represent benign cavernous angioma. CT scan of the neck done on 10/05/2019 showed spongiform inferior left thyroid nodule with a maximum diameter 1.4 cm. Recommended yearly ultrasound and if change in size, we'll consider biopsy otherwise no suspicious or concerning nodules seen in thyroid Patient has history of left breast outer part biopsy done 20 years ago, as per patient it was benign .Follow-up mammogram done on 11/10/2019 showed increased soft tissue and calcification in right upper quadrant and scattered calcifications in the left breast, further imaging recommended Patient underwent ultrasound bilateral breast on December 26, 2019 which showed, right breast shows mixed echogenicity tubular structure corresponding to mammographic abnormality of of calcification in the mass and left breast showed at 9 o'clock position 1.4 x 0.9 x 1.5 cm nodule, case was discussed with Dr. 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 pTis ( DCIS),pN1a Came for follow-up, complaining of off and on headache but no blurred vision or double vision, patient appears anxious regarding her newly diagnosed DCIS right breast and now further treatment options including mastectomy versus bilateral mastectomy is under consideration. Patient is also moving close to her daughter after 50 years living in her own house. As per patient all these things making her more anxious. Medications: Cholecalciferol Tablet Oral, Furosemide 1 Tablet (of 20 mg) Oral daily, hydroCHLOROthiazide 12.5 mg (of 12.5 mg) Tablet Oral daily, Potassium Chloride ER 1 Tablet (of 10 meq) Tablet, controlled release Oral daily, Simvastatin 20 mg (of 20 mg) Tablet Oral daily, Vitamin C Capsule Oral Allergies: No Known Allergies. Review of Systems: Constitutional - Appetite is good and weight is stable. No fever, chills, hot flashes, or night sweats. Energy level is fair, ENMT - No sinus congestion/drainage. No mouth sores. No sore throat or difficulty swallowing, Hematologic/Lymphatic - No abnormal bruising or bleeding, Respiratory - No shortness of breath. No cough. No pleuritic pain or hemoptysis, Cardiovascular - No angina pain. No palpitations, Gastrointestinal - No nausea or vomiting. No heartburn or acid reflux. No diarrhea or constipation. No blood in the stool or black stools, Genitourinary (F) - No dysuria or hematuria. No urinary frequency. No urgency or incontinence, Musculoskeletal - No joint or bone pain, Neurologic - No headache or dizziness. No numbness/paresthesias or other focal neurologic symptoms, Psychiatric - No anxiety or depression. No insomnia. Vital Signs: Performed on May 11, 2020 08:12 Height - 61.00 in Weight - 152.6 lbs (HIGH) BSA - 1.68 sq.m BMI - 28.83 Temperature - 98.5 F Pulse - 81 /min Respiration - 24 /min BP - 128/66 mm(hg) O2 Sat - 97 % Pain - 7 Performance Status: 0 - Fully active, able to carry on all predisease activities without restrictions. (ECOG) Physical Examination: ENMT - No mouth sores, no thrush, no jaundice, Respiratory - Lungs are clear to auscultation, Cardiovascular - Regular rate and rhythm of heart, Abdomen - Soft, bowel sounds present, Extremities - No visible edema. Lab/Imaging: Test performed on Jan 18, 2020 08:04 Sodium 136 mmol/L Potassium 4.1 mmol/L Chloride 97 mmol/L CO2 26 mmol/L Anion Gap 17.1 BUN 10 mg/dL Creatinine 0.7 mg/dL Cr Clearance (Est) 86.4800 mL/min eGFR 83.2 mL/min Glucose 146 mg/dL Calcium 9.3 mg/dL Osmolality - Calculated 281 mOsm/kg Protein, Total 7.1 g/dL Albumin 4.4 g/dL Globulin 2.7 g/dL Bilirubin, Total 0.2 mg/dL ALT (SGPT) 12 U/L AST (SGOT) 13 U/L Alkaline Phosphatase 68 IU/L WBC 13.2 10 3/uL RBC 4.24 10 6/uL HGB 13.5 g/dL HCT 44.1 % MCV 104.0 fL MCH 31.8 pg MCHC 30.6 g/dL RDW 16.3 % Platelet Count 212 10 3/cmm MPV 10.5 fL Neutrophils 12.19 10 3/uL Lymphocytes 0.3 10 3/uL Monocytes 0.5 10 3/uL Eosinophils 0.1 10 3/uL Basophils 0.0 10 3/uL Neutrophil % 92.3 % Lymphocyte % 2.5 % Monocyte % 3.9 % Eosinophil % 0.6 % Basophils % 0.2 % NRBC % 0 % Test performed on November 22, 2019 10:36 CBC Slide Review Slide Review Perform SLIDE REVIEW AGREES WITH AUTOMATED RESULTS Impression: DCIS involving right breast status post ultrasound-guided needle biopsy done on December 30, 2019, ER/CO positive HER-2/jorge negative Status post partial mastectomy right axillary lymph node evaluation done on April 17, 2020 which shows diffuse and extensive DCIS with multiple positive surgical margins and 3 out of 3 positive lymph node with a DCIS involvement,pTis (DCIS) Left breast biopsy done on December 30, 2019 shows fibroadenoma Moderately differentiated squamous cell carcinoma per CT-guided biopsy of left upper lobe lung done on 06/01/2019 Immunohistochemistry showed positive for p40 and negative for TTF-1. CT PET scan done on 05/10/2019 showed multiple hypermetabolic nodules in left lung e.g. 3 closely related nodules in upper left lobe largest being 0.8 x 1.3 cm and one in the left lower lobe. Cancer type ID confirmed lung being primary at 77% probability Clinical stage T4 ( lesions in ipsilateral separate lobes) NX M0 stage IIIa COPD, exercise hypoxemia, chronic smoking Mrs Steven tolerated SB RT to left upper lobe lung nodules as well as left lower lobe lung nodule well. She had been advised to pursue further treatment Earlier patient required cancer type ID to confirm the primary as with clinical presentation metastatic disease was one of the possibility but cancer type ID confirmed pulmonary being primary with 77% probability, we will also consider PDL 1 status and molecular profiling of the tumor discussed the role of adjuvant chemotherapy as patient was not a candidate for surgery but underwent SB RT. recommended systemic chemotherapy with carboplatin AUC 5 on day 1 and gemcitabine 1,000mg per meter square day 1 and day 8 and repeat every 21 days ???4 cycles. She began her first cycle of carboplatin gemcitabine on August 16, 2019.and completed 4 cycles on 11/15/2019 abnormal mammogram done on 11/10/2019 Plan: Discussed with patient regarding her labs white blood count 4.9 hemoglobin 14 hematocrit 42.6 platelets 207,000 and CMP within normal limits and final pathology report on right partial mastectomy with lymph node dissection which showed extensive ductal carcinoma site with DCIS involving 3 out of 3 right axillary lymph nodes. Clinically, patient doing reasonably well but appears very anxious due to multiple reasons including newly diagnosed DCIS involving right breast and also moving close to her daughter after 50 years of living in her own house. As far as off-and-on headache is concerned could be multifactorial including anxiety but will consider MRI scan of the head to rule out any brain mets and or other pathology. Also consider CT scan of chest as patient is having vague symptom e.g. discomfort and anterior chest/bilateral breast and bilateral ribs. She will return to clinic after MRI scan of the head and CT scan of chest for follow-up and for further discussion As far as right breast DCIS is concerned, patient is considering bilateral mastectomy and considering second opinion from surgery in the [place]., Signed By: Barbara Zhou M.D. <<Signature on File>>
== END 2020-05-11 05:45 | disposition home or self-care (01) ==
LOC: ONCMED 05:47
PROVIDERS: Visit Provider Internal Medicine Hematology & Oncology
DX: C34.12 Malignant neoplasm of upper lobe, left bronchus or lung (principal); D05.11 Intraductal carcinoma in situ of right breast; J44.9 Chronic obstructive pulmonary disease, unspecified; F17.210 Nicotine dependence, cigarettes, uncomplicated; R09.02 Hypoxemia; R51.9 Headache, unspecified; F41.9 Anxiety disorder, unspecified; Z79.899 Other long term (current) drug therapy
CPT/HCPCS: 99214